=== PATIENT | male | born 1935 | race African-American/Black ===

== ENCOUNTER 2022-05-21 08:44 | Outpatient (REF) | payer MEDICARE, SELFPAY ==
--- NOTE | ~2022-05-21 | FL_ITS ---
EXAMINATION: FL BARIUM SWALLOW CLINICAL INFORMATION: Dysphagia, oropharyngeal phase COMPARISON: None TECHNIQUE: After effervescent granules, the patient swallowed thick barium by cup. The patient aspirated and the study was terminated early. Fluoroscopy time: 0.6 minutes DAP: 0.693 Gycm2 Images: 4 FINDINGS: The patient initiated swallowing normally. On the limited evaluation from a single swallow, no fixed esophageal mucosal abnormality is seen to suggest a stricture or mass. However, the patient aspirated, with contrast seen well below the level of the cords (images #3 and #4) so the study was terminated at that time. FL/FL barium swallow IMPRESSION: Limited study terminated due to aspiration. Recommend dedicated swallowing evaluation by speech and line which therapy. Limited evaluation of the esophagus is only a single AP swallow was visualized. However, there is no gross fixed mucosal abnormality to suggest a stricture or mass. As clinically indicated, consider upper endoscopy or a follow-up esophagram after swallowing evaluation.
[2022-05-21 09:37] LABS: Hematocrit 37.1 % (42.0-52.0); Hemoglobin 12.3 g/dl (14.0-18.0); Mean Corpuscular HGB Conc 33.2 g/dl (31.0-36.0); Mean Corpuscular Hemoglobin 33.2 pg (27.0-33.0); Mean Corpuscular Volume 100.3 fL (80.0-98.0); Mean Platelet Volume 11.1 fL (9.4-12.4); Platelet Count 134 X10*3/uL (160-400); Red Cell Distribution Width 13.8 % (11.0-16.0)
[2022-05-21 09:54] LABS: Alanine Aminotransferase 13 U/L (0-40); Albumin Level 3.9 g/dL (3.5-5.0); Alkaline Phosphatase 65 U/L (39-117); Anion Gap 12 (12-20); Aspartate Amino Transferase 22 U/L (5-37); Bilirubin Total 0.9 mg/dL (0.0-1.0); Blood Urea Nitrogen 14 mg/dL (9-16); Calcium 9.2 mg/dL (8.4-10.2); Carbon Dioxide 30 mmol/L (22-29); Chloride 105 mmol/L (96-108); Estimated Glomerular Filt Rate > 60; Glucose Fasting 88 mg/dL (60-99); Potassium 4.2 mmol/L (3.3-5.1); Sodium 143 mmol/L (135-145); Total Protein 6.2 g/dL (6.5-8.0)
[2022-05-21 10:16] LABS: Prostate Specific Antigen Scr 8.23 ng/mL (<0.05-4.0); TSH reflex Free T4 4.92 uIU/mL (0.32-4.0)
[2022-05-21 10:48] LABS: Free T4 (Free Thyroxine) 0.84 ng/dL (0.71-1.85)
== END 2022-05-21 08:45 | disposition home or self-care (01) ==
LOC: HO.XRAY 08:44
PROVIDERS: PCP Physician Assistant; Visit Provider Physician Assistant
DX: Z12.5 Encounter for screening for malignant neoplasm of prostate (principal); Z13.29 Encounter for screening for other suspected endocrine disorder; C61 Malignant neoplasm of prostate
CPT/HCPCS: 36415; 74220; 80053; 84153; 84439; 84443; 85027

== ENCOUNTER → 2022-07-02 10:54 | Outpatient (BNVA) | payer MEDICARE, SELFPAY | PROVIDERS: PCP Physician Assistant; Visit Provider Internal Medicine | DX: R13.12 Dysphagia, oropharyngeal phase (principal) | CPT/HCPCS: 99202 ==

== ENCOUNTER 2022-08-05 09:40 | Outpatient (REF) | payer OTHER, SELFPAY ==
--- NOTE | ~2022-08-05 | CT_ITS ---
EXAMINATION: CT CHEST WITH CONTRAST CLINICAL INFORMATION: Dysphagia. History of aspiration. COMPARISON: Barium swallow April 2022 TECHNIQUE: Multidetector volumetric CT imaging of the chest was obtained after the administration of 65 mL of Omnipaque 350 intravenous contrast without immediate adverse reactions. Axial MIP volume rendering provided. Sagittal and coronal reformatted images were obtained. This CT examination was performed using dose optimization techniques as appropriate, variously including the following: *Automated exposure control *Adjustment of mA and/or kV according to patient size (this includes techniques or standardized protocols for targeted exams where dose is matched to indication/reason for exam; i.e. extremities or head) *Use of iterative reconstruction technique DLP: 88 mGy-cm FINDINGS: LUNGS: There is a heterogeneous or semisolid density in the superior segment of the right lower lobe this is partially solid and partially groundglass attenuation. Denser more solid-appearing component measures 8 x 10 mm axial image 89 series 7. Including more peripheral groundglass component this measures 2.5 x 2 cm in AP and transverse dimension sagittal reconstructed image 68 and 3 cm in transverse dimension coronal reconstructed image 69. There is adjacent mild bronchial wall thickening for example axial image 84 series 7. There is a 3 mm right lower lobe nodule axial image 116 series 7 that may be endobronchial. There is 2 mm right middle lobe nodule axial image 1:15 series 7 there is a 2 mm right middle lobe nodule axial image 127 series 7. There is scarring or subsegmental atelectasis at the lung bases. MEDIASTINUM: The distal thoracic esophagus is slightly dilated and fluid-filled. The esophagus is otherwise normal. Normal heart size. No pericardial effusion. Normal caliber thoracic aorta. No enlarged hilar or mediastinal lymph nodes. PLEURA: There is no pleural effusion. No pleural mass or thickening. AXILLA: No lymphadenopathy. UPPER ABDOMEN: Unremarkable OSSEOUS STRUCTURES: 1 cm sclerotic lesion in the left T10 vertebral body. Question mild old L1 compression fracture versus Schmorl's node. Degenerative changes of the spine. CT/CT chest w IV con IMPRESSION: 2.5 x 2 x 3 cm heterogeneous partially solid partially groundglass attenuation lesion in the right lower lobe. Infectious, inflammatory and neoplastic processes should be considered. Short-term chest CT follow-up following antibiotic treatment in several weeks recommended. Slightly dilated fluid-filled distal thoracic esophagus. The esophagus is otherwise normal. 1 cm nonspecific sclerotic lesion in the T10 vertebral body. Fleischner guidelines were followed. Findings will be communicated by the [place] work flow cocoa bean roaster helper.
[2022-08-05] MEDS: iohexoL 350 MG/ML 100 ML INFUS..BTL IV (11:24)
[2022-08-06 07:59] LABS: Creatinine POC 0.5 mg/dL (0.5-1.4); GFR POC > 60
== END 2022-08-05 09:41 | disposition home or self-care (01) ==
LOC: HO.CT 09:40
PROVIDERS: Visit Provider Internal Medicine
DX: R13.10 Dysphagia, unspecified (principal)
CPT/HCPCS: 71260; 82565; Q9967

== ENCOUNTER 2022-08-21 14:00 | Outpatient (REF) | payer OTHER, SELFPAY ==
--- NOTE | ~2022-08-21 | FL_ITS ---
EXAMINATION: XR BARIUM SWALLOW CLINICAL INFORMATION: Dysphagia. COMPARISON: None. TECHNIQUE: Modified barium swallow was performed on lateral fluoroscopy with patient upright in the presence of the speech therapist. FINDINGS: Modified barium swallow was performed with thick barium, honey, nectar consistency barium, cookie coated with barium and barium puree. There is normal propagation bolus from the oral cavity through the pharynx into the esophagus with no laryngeal aspiration. Laryngeal penetration was visualized with honey consistency barium on at least 2 occasions. Mild retention of barium was seen in the valleculae due to anterior inversion of the epiglottis. FLUOROSCOPY TIME: 4.7 minutes. DOSE AREA PRODUCT: 2.440 uGy-m2 (microgray-meter squared). FL/FL barium swallow modified IMPRESSION: 1. Laryngeal penetration with honey consistency barium. No laryngeal aspiration seen. 2. Mild retention of barium in the valleculae due to anterior inversion of the epiglottis. Correlate with speech therapy report.
--- NOTE | 2022-08-22 13:30 | MHC.SL.IMP ---
Date of Plan of Treatment: 08/21/22 Onset of Symptoms/Illness: 08/21/18 Date Treatment Started: 08/21/22 Admitting Diagnosis: N/A Primary Speech & Language Diagnosis: R13.12 Oropharyngeal Phase Dysphagia Reason for Today's Visit: 60744 Modified Barium Swallow Study Pre-evaluation Dietary Consistencies: Regular Pre-evaluation Liquid Consistency: Thin Pre-evaluation Medication Administration: Whole with Liquid Medical History: [place] Modified Barium Swallow Study Fluoroscopic Evaluation of Swallowing Function CPT Code 64396 Evaluation Year: 2021 Reason for Study: Patient reports globus sensation. Referring Physician: Bailey Llanos MD Evaluating Clinician: Darline Connell MA, CCC-MOBILE MARKETING MANAGER Study Number: 1 Patient Name: John Guevara Age: 87 Gender: Male MEDICAL HISTORY: SURGICAL HX: History of esophagogastroduodenoscopy History of colonoscopy Current (pre-evaluation) Intake/Diet: Route: PO Diet Grade: Regular Liquid Consistencies: Thin Pre-Study Functional Oral Intake Scale (FOIS): 7- Total oral intake with no restrictions Pain: None reported at time of study SUBJECTIVE: Pt is an 87 year old male referred for a modified barium swallow study by Bailey Llanos MD [place] [facility] [place] Pt attended this exam accompanied by his daughter and , who had waited in the waiting area. Pt reported onset of dysphagia 4 years ago. Pt reported that he has difficulty swallowing hard foods only. Pt reported ?feeling like something is stuck? and having to take sips of liquid between each bite. When seen by the G.I. specialist, pt reported he had difficulty with foods such as rice, bread, and meat, and that he cuts his food into small pieces and chews thoroughly. Pt denied pain when swallowing. Pt denied having any difficulty drinking liquids. [place] [facility] [place] Findings of Barium Swallow X-Ray are as follows: ?FINDINGS: The patient initiated swallowing normally. On the limited evaluation from a single swallow, no fixed esophageal mucosal abnormality is seen to suggest a stricture or mass. However, the patient aspirated, with contrast seen well below the level of the cords (images #3 and #4) so the study was terminated at that time. FL/FL barium swallow IMPRESSION: Limited study terminated due to aspiration. Recommend dedicated swallowing evaluation by speech and line which therapy. Limited evaluation of the esophagus is only a single AP swallow was visualized. However, there is no gross fixed mucosal abnormality to suggest a stricture or mass. As clinically indicated, consider upper endoscopy or a follow-up esophagram after swallowing evaluation.? Oral Motor Exam Facial Symmetry: Symmetrical Mouth Occlusion: Normal Oral-Facial Teeth Characteristics: Partially Missing Oral-Facial Lip Pucker Description: Normal Oral-Facial Smile (Lips) Description: Normal Oral-Facial Puff Cheeks Description: Normal Tongue Size: Normal Tongue Excursion Description: Normal Tongue Range of Movement Description: Normal Tongue Speed of Movement Description: Normal Tongue Strength of Movement (against opposing pressure): Reduced Tongue Movement Characteristics: Normal/Absent Is patient able to manage secretions?: Yes Is patient able to produce volitional cough?: Yes Food and Liquid Trials: Oral Impairment: Lip Closure: 0=No labial escape Oral Impairment: Tongue Control During Bolus Hold: 1=Escape to lateral buccal cavity/floor of mouth (FOM) Oral Impairment: Bolus Preparation/Mastication: 1=Slow prolonged chewing/mashing with complete re-collection Oral Impairment: Bolus Transport/Lingual Motion: 2=Slowed tongue motion Oral Impairment: Oral Residue: 2=Residue collection on oral structures Oral Impairment:Initiation of Pharyngeal Swallow: 1=Bolus head in valleculae Pharyngeal Impairment: Soft Palate Elevation: 0=No bolus between soft palate (SP)/pharyngeal wall (PW) Pharyngeal Impairment: Laryngeal Elevation: 1=Partial thyroid cartilage/arytenoids to epiglottic petiole movement Pharyngeal Impairment: Anterior Hyoid Excursion: 1=Partial anterior movement Pharyngeal Impairment: Epiglottic Movement: 2=No inversion Pharyngeal Impairment: Laryngeal Vestibular Closure:: 1=Incomplete: narrow column air/contrast in laryngeal vestibule Pharyngeal Impairment: Pharyngeal Stripping Wave: 0=Present: complete Pharyngeal Impairment: Pharyngeal Contraction: Did not test Pharyngeal Impairment: Pharyngoesophageal Segment Openin=Partial distention/partial duration: partial obstruction of flow Pharyngeal Impairment: Tongue Base (TB) Retraction: 2=Narrow column of contrast/air between TB and posterior PW Pharyngeal Impairment: Pharyngeal Residue: 2=Collection of residue within or on pharyngeal structures Pharyngeal Impairment: Esophageal Clearance Upright Position: Did not test Impressions and Recommendations OBJECTIVE: Time-out: performed at 02:45 Evaluation Start: 02:30; Stop: 02:35 Patient Positioning: Standing Viewing Planes: LATERAL ONLY Contrast: MBSImP? Standardized Protocol using commercially prepared, standardized Barium viscosities, including: Varibar? THIN LIQUID (40% w/v, <15 cps) , Varibar? NECTAR (40% w/v, <150-450 cps) , Varibar? THIN HONEY (40% w/v, <800-1800 cps) , 1/2 Shortbread Cookie (1 x1 x.25 ) MBSImP ID: [id number] MBSImP Results: Lip closure for intraoral bolus containment resulted in no labial escape. Tongue control during bolus hold allowed bolus escape to the lateral buccal cavity/floor of mouth. Bolus preparation and mastication resulted in slow, prolonged chewing/mashing but with complete re-collection. Bolus transport/lingual motion was with slowed tongue motion. Oral residue was a collection on oral structures. Initiation of the pharyngeal swallow occurred when the bolus head was in the valleculae. Soft palate elevation resulted in no bolus between the soft palate and the pharyngeal wall. Laryngeal elevation was decreased, with partial superior movement of the thyroid cartilage/partial approximation of the arytenoids to the epiglottic petiole. Anterior hyoid excursion demonstrated partial anterior movement. Epiglottic movement resulted in no inversion. Laryngeal vestibular closure was incomplete, with a narrow column of air/contrast noted within the laryngeal vestibule at the height of the swallow. Pharyngeal stripping wave was present and complete. Pharyngeal contraction could not be determined due to logistical reasons not related to physiologic impairment. Pharyngoesophageal segment opening demonstrated partial distension/partial duration, with partial obstruction of bolus flow. Tongue base retraction allowed a narrow column of contrast or air between the retracted tongue base and the posterior pharyngeal wall. Pharyngeal residue was a collection of residue within or on pharyngeal structures. Esophageal clearance in the upright position could not be assessed due to logistical reasons not related to physiologic impairment. Oral Impairment Score: 7 Pharyngeal Impairment Score: 10 (absence of score, component 13) Esophageal Impairment Score: --- (absence of score, component 17) Laryngeal Penetration and Aspiration: Penetration was observed in today's study. Thin Contrast entered the airway, remained above the vocal folds, and was ejected from the airway. ASSESSMENT: Clinician Assessment: This exam was conducted by a multidisciplinary team, which included a speech pathologist, radiologist, and radiology director. Pt was standing for lateral view only. Pt was able to feed himself without any difficulty. Pt trialed the following solid and liquid consistencies: pureed solid (mixture applesauce with barium paste), ground solid (mixture chicken salad with barium paste), regular solid (Eileen Doone cookie coated with barium paste), honey thick liquid barium by cup, nectar thick liquid barium by cup, and thin liquid barium by cup. Pt displayed adequate lip closure with no labial escape. There was escape of bolus to the floor of mouth, but no premature posterior escape. Mastication was mildly slowed, characterized by piece meal deglutition pattern. Pt chewed bolus, swallowed partial bolus, chewed remaining bolus, and swallowed again to clear the oral cavity. There was mild lingual residue, which pt cleared with a dry swallow. Posterior lingual movement for the transport of bolus was mildly slowed. Pharyngeal swallow trigger initiated as bolus head reached the valleculae. There was no nasopharyngeal reflux. Laryngeal elevation was incomplete with partial anterior hyoid excursion. Epiglottis at times inverted partially, while other times there was no inversion at all. There was incomplete laryngeal vestibular closure, with resultant penetration of thin liquid. There was mild to moderate pharyngeal residue in the valleculae and pyriform sinuses and on the posterior pharyngeal wall. Pt was able to clear pharyngeal residue with multiple dry swallows. The chin tuck did not have a significant effect in reducing pharyngeal residue. There were episodes of penetration of very trace amount of contrast with intake of thin liquid, which cleared from airway with subsequent dry swallow. No evidence of aspiration during this exam. Liquid Intake Recommendation: Thin Liquid Intake Strategies: Small Sips, No Straws, Double Swallow Dietary Recommendations: Chopped/Advanced (NDD3) Medication Administration: Whole with Puree Please contact the pharmacy regarding appropriate crushable or liquid drug formulations that are available whenever modified delivery is recommended. Compensatory Strategies Recommended: Sitting Upright (90 deg), Double Swallow, No Straw, Liquids from Cup, Liquids from Spoon, Small Bites and Sips, Rate of Ingestion Change, Avoid Specific Foods Supervision during eating and or drinking: Total Supervision (1:1) Recommended Treatments: Compens. Strategy Educat. Recommendation for Speech Therapy: Outpatient Speech Therapy PLAN: Intake Recommendations: Route: PO Diet Grade: CHOPPED/ADVANCED (NDD3) Liquid Consistencies: Thin Post-Study Functional Oral Intake Scale (FOIS): 5- Total oral intake of multiple consistencies requiring special preparation This exam revealed mild oropharyngeal phase dysphagia, characterized by mildly prolonged oral phase, incomplete laryngeal elevation, partial to no epiglottic inversion and incomplete laryngeal vestibular closure with resultant penetration of liquids. No evidence of aspiration during this exam, however, presence of penetration puts pt at risk of aspiration. There was mild to moderate pharyngeal retention which cleared with subsequent dry swallows. Recommend modified diet CHOPPED/ADVANCED (NDD3) solids with THIN liquids and ASPIRATION PRECAUTIONS: -Take small bites of food -Moisten food with sauces and gravies, ensuring sauces are mixed and blended in well with food -Chew food well -Avoid hard to chew solids, sticky textures, and mixed consistencies -Follow each bite with 2-3 additional dry swallow to promote pharyngeal clearance -Take small, individual sips of liquid by teaspoon or by cup -Avoid taking consecutive sips -Avoid the use of straws -Follow each sip with 1-2 dry swallows -Maintain upright 90 degree position while eating and drinking and for at least 45 minutes afterwards -Ensure a rigorous daily oral care routine before first meal and after each subsequent meal Recommend 1-3 speech therapy visits to provide further education RE: MBSS results, risks of aspiration, dietary textures, and recommended strategies. Recommend pt to continue monitoring his dysphagia. If there are any changes or worsening of symptoms, consult with PCP, at which point a re-evaluation may be indicated. Therapy Recommendations: Therapy will be continued Prognosis for Improvement: The prognosis for the patient to meet nutritional needs by mouth is good based on degree of impairment. Billposter Goals: ? The patient will tolerate the least restrictive diet with a safe/efficient swallow to maintain adequate nutrition and hydration. ? The patient and/or family will participate in further education for swallowing goals. Short Term Goals: ? Diet ? Guidelines - The patient will comply with/recall the following guidelines/strategies 100% of the time with no cuing: Bolus Volume Change, Rate of Ingestion Change, Additional Swallow(s) per Bolus, No Straws. ? Education - The patient, family will verbalize/demonstrate understanding of the results of this evaluation, the above recommendations, and the swallowing guidelines. Frequency/Duration: 1x weekly x 3 weeks Date Range for Service Requested: Timeline to reassess: Clinician - Supplemental, Miscellaneous Communication: It is important to note MBSS objective studies are snapshots in time and Patient function might vary with factors such as time of day or concomitant medical conditions. For this reason, the final treatment plan for this patient should rest with their medical care team. Additional recommendations should be considered with the totality of the Patient in mind. Thank for the opportunity to participate in the care of this patient. If you have any questions about the content of this report, please contact the [facility]. Education: Education regarding findings from today's study and plans for therapy were provided to Patient only through Verbal Instruction. Understanding was expressed by the Patient only. Classifying Machine Operator Clinician/Clinical Fellow: No Supervisory Statement: N/A Speech Language Pathologist: Darline Connell M.A., CCC-MOBILE MARKETING MANAGER
== END 2022-08-21 14:01 | disposition home or self-care (01) ==
LOC: HO.XRAY 14:00
PROVIDERS: Visit Provider Internal Medicine
DX: R13.12 Dysphagia, oropharyngeal phase (principal)
CPT/HCPCS: 74230; 92611

== ENCOUNTER → 2022-08-23 10:45 | Outpatient (BNVA) | payer OTHER, SELFPAY | PROVIDERS: PCP Physician Assistant; Visit Provider Surgery | DX: R91.1 Solitary pulmonary nodule (principal); R13.12 Dysphagia, oropharyngeal phase | CPT/HCPCS: 99202 ==

== ENCOUNTER 2022-09-05 09:16 | Day surgery (SDC) | payer OTHER, SELFPAY ==
[2022-08-30 12:18] VITALS: BMI 23.5
--- NOTE | 2022-09-04 10:31 | P.CONAN_ITS ---
Documented by User: Shira Rosario NP 09/04/22 10:37 HPI - Anesthesia Eval Consult details Narrative: 87yo M for Upper Endoscopy PMFSH Active Problems Active Problems: All Active Problems (Updated 08/23/22 @ 12:22 by Isabel Macedo PA-C) Pulmonary nodule 1 cm or greater in diameter (Acute) Prostate CA (Acute) Oropharyngeal dysphagia (Acute) Dysphagia (Acute) Knee osteoarthritis (Acute) Osteoarthritis (Acute) Neuropathy (Acute) Past Medical History Medical History GERD (gastroesophageal reflux disease) Prostate CA Family History Family History Brother Cancer Brother Cancer Brother Cancer Sister Cancer Sister Cancer Sister Cancer Surgical History Surgical History History of colonoscopy History of esophagogastroduodenoscopy (EGD) Social History Social History Housing: House Are you a primary career services officer to a significant other at home: No Do you presently have visiting nurse or other home services: No Patient Tobacco Use Status: Never used Tobacco e-Cigarette/Vaping Use: Never Used Use of substances other than those prescribed or required for medical reasons: No Are you DNR?: No Advance Directives: No Advance Directives Information Provided: Yes Advance Directives on File: No Recently lost weight without trying: No Nutrition Risks: Surgical patient >75years Poor oral hygiene: No service: No Current occupational status: retired Cognitive needs: Yes Hearing needs: No Meds Allergies Allergy/AdvReac Type Severity Reaction Status Date / Time aspirin Allergy Intermediate itchy body Verified 09/05/22 09:34 Home Medications Medication Instructions Recorded Confirmed Last Taken Type acetaminophen 500 mg tablet 500 mg PO Q6H PRN Pain 05/13/22 09/05/22 Unknown History (Tylenol Extra Strength) lidocaine 4 % topical patch 1 patch topical DAILY PRN Back Pain 09/05/22 09/05/22 Unknown History (Lidocaine Pain Relief) multivitamin 1 tab PO DAILY 09/05/22 09/05/22 Unknown History Exam Exam Date and Time: September 04, 2022 1031 Height,Weight and Vital Signs: Height 5 ft 2.6 in Weight 59.421 kg Pertinent Lab Results Pertinent Lab Results: Laboratory Tests 05/21/22 05/21/22 08:59 08:59 WBC 5.0 Hgb 12.3 L Hct 37.1 L Plt Count 134 L Sodium 143 Potassium 4.2 Chloride 105 Carbon Dioxide 30 H BUN 14 Creatinine 0.84 Assessment and Plan Assessment Anesthesia Assessment: Chart Reviewed Documented by User: Odette Andersen MD 09/05/22 10:23 [facility] Past Medical History Medical History GERD (gastroesophageal reflux disease) Prostate CA Functional capacity: independent ambulation Family History Family History Brother Cancer Brother Cancer Brother Cancer Sister Cancer Sister Cancer Sister Cancer Family history of problems with anesthesia: No Surgical History Surgical History History of colonoscopy History of esophagogastroduodenoscopy (EGD) History of Problems with Anesthesia: No Social History Social History Housing: House Are you a primary career services officer to a significant other at home: No Do you presently have visiting nurse or other home services: No Patient Tobacco Use Status: Never used Tobacco e-Cigarette/Vaping Use: Never Used Use of substances other than those prescribed or required for medical reasons: No Are you DNR?: No Advance Directives: No Advance Directives Information Provided: Yes Advance Directives on File: No Recently lost weight without trying: No Nutrition Risks: Surgical patient >75years Poor oral hygiene: No service: No Current occupational status: retired Cognitive needs: Yes Hearing needs: No Meds Allergies Allergy/AdvReac Type Severity Reaction Status Date / Time aspirin Allergy Intermediate itchy body Verified 09/05/22 09:34 Home Medications Medication Instructions Recorded Confirmed Last Taken Type acetaminophen 500 mg tablet 500 mg PO Q6H PRN Pain 05/13/22 09/05/22 Unknown History (Tylenol Extra Strength) lidocaine 4 % topical patch 1 patch topical DAILY PRN Back Pain 09/05/22 09/05/22 Unknown History (Lidocaine Pain Relief) multivitamin 1 tab PO DAILY 09/05/22 09/05/22 Unknown History Exam Airway Mallampati Class: II TM Dist: >3cm Heart: RRR Lungs: CTA Assessment and Plan Final Anesthetic Review Family History of Problems with Anesthesia: No History of Problems with Anesthesia: No NPO: Yes ASA Class: II Final Preanesthetic Review: No Changes in Pt Med Stat and Consent Obtained/Reviewed Patient Risk: Low Procedure Risk: Low Anesthetic Plan Anesthetic Plan: MAC: Disposition: Standard PACU
[2022-09-05 09:21] VITALS: BP 135/58; PULSE 63; RESP 18; TEMP 36.1; O2SAT 99
[2022-09-05] MEDS: Lactated Ringers 1,000 ML 100 ML IVCONT (09:58)
--- NOTE | 2022-09-05 10:03 | MHC.SHP ---
Pre-Procedural Eval Section A Date of Service: 09/05/22 Section B Chief Complaint: Dysphagia, oropharyngeal phase Details of Present Illness: 87 y.o M with hx of dysphagia mostly to solids here for EGD with possible dilation. No unintentional weight loss. Seen with the help of readers' advisory service librarian. Relevant Family History (Specify if Yes): No Relevant Social History: None Present Medications: see Short Stay Collaborative assessment Medical History: Significant History (Hx of prostate ca, osteoarthritis, neuropathy ) Allergies: Allergies Allergy/AdvReac Type Severity Reaction Status Date / Time aspirin Allergy Intermediate itchy body Verified 09/05/22 09:34 Review of Systems Review of Systems Comment: 10 point ROS negative except as above Exam Exam Comment: Gen appear: No acute distress HEENT: no icterus Chest: No overt resp distress Abd: soft, nontender, nondistended Psych: Stable affect, answering questions appropriately Neuro: A/Ox3 noted to move all extremities spontaneously Ext: no peripheral edema Plan Diagnosis/Plan: Unchanged I have reviewed the history and physical and performed a pertinent physical examination on my patient. No changes have occurred unless specified. Time Spent With Patient Time: Total time managing care of this patient today ____ minutes.
--- NOTE | 2022-09-05 11:15 | P.OP_ITS ---
Operative Note Operative Note Date of Service: 09/05/22 Narrative: Procedure: Esophagogastroduodenoscopy Endoscopist: Bailey Llanos MD Indication: Dysphagia Anesthesia Provider: Iman Grijalva CRNA Anesthesia Type: MAC Instrument: Olympus [id number] ?? EGD Procedure:?? The procedure, indications, preparation and potential complications were reviewed with the patient, who indicated understanding and gave written informed consent to proceed. A physical exam was performed. The endoscope was introduced through the mouth, and advanced to the second part of duodenum. The mucosa was carefully examined on slow withdrawal of the endoscope. The patient tolerated the procedure well. There were no immediate complications.? ? EGD Findings:? * Esophagus:? Normal mucosa noted in the entire esophagus. The Z line was at 34 cm. There was a Schatzki's ring at GE junction. A small hiatal hernia with diaphragmatic pinch noted at 36 cm. * Stomach:? Normal mucosa was noted in the stomach. * Duodenum:? Normal mucosa was noted in the whole of the examined duodenum. Additional intervention: A fixed-wire esophageal balloon was inserted through the scope and incrementally insufflated from 18 mm to 20 mm. A small tear with heme was noted in the Schatzki's ring at 9 o clock position indicating successful dilation. ? EGD Impressions:? * Schatzki's ring (dilation) * Hiatal hernia * Normal stomach * Normal duodenum ?? Recommendations:?? * Liquid diet for the next 4-6 hours and then advance to regular diet. * Avoid NSAIDs. * If the dysphagia improves and then returns, can consider repeat dilation. Above has been reviewed with the patient. Relevant educational hand outs were provided at discharge.
[2022-09-05 11:22] VITALS: BP 102/55; PULSE 69; RESP 16; TEMP 36.6; O2SAT 100
[2022-09-05 11:37] VITALS: BP 130/73; PULSE 62; RESP 14; O2SAT 97
[2022-09-05 11:49] VITALS: BP 121/66; PULSE 56; RESP 14; TEMP 36.4; O2SAT 97
[2022-09-05 11:54] VITALS: PULSE 56
--- NOTE | 2022-09-05 13:32 | HO.POSTANES ---
Post Anesthesia Evaluation Post Anesthesia Evaluation Vital Signs: Vital Signs Temp Pulse Resp BP Pulse Ox O2 Del Method O2 Flow Rate 09/05/22 11:54 56 09/05/22 11:49 97.6 F 56 14 121/66 97 Room Air 09/05/22 11:37 62 14 130/73 97 Nasal Cannula 09/05/22 11:22 98 F 69 16 102/55 L 100 Non-Rebreather Mask 6 09/05/22 09:21 96.9 F 63 18 135/58 L 99 Room Air Anesthesia: Monitored Mental Status: Awake Pain Control: Satisfactory Nausea/Vomiting: None Hydration: Adequate Anesthesia-Related Issues: No Anes. Related Issues
== END 2022-09-05 12:29 | disposition home or self-care (01) ==
PROVIDERS: PCP Physician Assistant; Visit Provider Internal Medicine
PROC: 0DJ08ZZ Inspection of Upper Intestinal Tract, Via Natural or Artificial Opening Endoscopic (ICD-10-PCS; CPT 43235; principal; 2022-09-05 10:50)
DX: R13.12 Dysphagia, oropharyngeal phase (principal); K22.2 Esophageal obstruction; K44.9 Diaphragmatic hernia without obstruction or gangrene; K21.9 Gastro-esophageal reflux disease without esophagitis; Z79.899 Other long term (current) drug therapy; Z88.8 Allergy status to other drugs, medicaments and biological substances; Z85.46 Personal history of malignant neoplasm of prostate
CPT/HCPCS: 43249; C1726

== ENCOUNTER → 2022-09-18 11:19 | Outpatient (BNVA) | payer OTHER, SELFPAY | PROVIDERS: PCP Physician Assistant; Visit Provider Internal Medicine | DX: R13.12 Dysphagia, oropharyngeal phase (principal); K22.2 Esophageal obstruction; Z79.899 Other long term (current) drug therapy | CPT/HCPCS: 99212 ==

== ENCOUNTER → 2022-09-27 09:36 | Outpatient (BNVA) | payer OTHER, SELFPAY | PROVIDERS: PCP Physician Assistant; Visit Provider Surgery | DX: K22.2 Esophageal obstruction (principal); R13.12 Dysphagia, oropharyngeal phase; R91.1 Solitary pulmonary nodule | CPT/HCPCS: 99212 ==

== ENCOUNTER 2022-10-08 10:36 | Outpatient (RCR) | payer OTHER, SELFPAY | END 2022-10-14 13:04 | disposition home or self-care (01) | LOC: HO.SH 10:36 | PROVIDERS: Visit Provider Internal Medicine | DX: R13.12 Dysphagia, oropharyngeal phase (principal) | CPT/HCPCS: 92526 ==

== ENCOUNTER 2022-12-06 09:29 | Outpatient (REF) | payer OTHER, SELFPAY ==
--- NOTE | ~2022-12-06 | CT_ITS ---
EXAMINATION: CT CHEST WITHOUT CONTRAST CLINICAL INFORMATION: Follow-up right upper lobe lesion. COMPARISON: CT chest dated 08/05/2022. TECHNIQUE: Multidetector volumetric CT imaging of the chest was done. Axial MIP volume rendering provided. Sagittal and coronal reformatted images were obtained. This CT examination was performed using dose optimization techniques as appropriate, variously including the following: *Automated exposure control *Adjustment of mA and/or kV according to patient size (this includes techniques or standardized protocols for targeted exams where dose is matched to indication/reason for exam; i.e. extremities or head) *Use of iterative reconstruction technique DLP: 143 mGy-cm FINDINGS: BOAT CAPTAIN: The lungs are symmetrically well-expanded and grossly clear. LUNGS: Within the posterior basal segment of the right lower lobe (5:256-72), there are now 2 adjacent ill-defined serpiginous densities. There is adjacent mild small airway thickening, with tiny endobronchial densities (5:263). Overall, these appear improved from prior, with incomplete clearance. There is a small focus of scar/subsegmental atelectasis seen within the posterior segment of the right upper lobe (5:205). At the posterior bases, there are scattered foci of chronic linear scar/subsegmental atelectasis. The show no associated focal airway obstruction. No new mass, nodule, infiltrate or groundglass opacity is seen. There is mild biapical pleural and parenchymal scarring. The central airways appear patent. MEDIASTINUM: The mediastinum is normal. CORONARY ARTERY CALCIFICATION: None visualized on this study. PLEURA: There is no pleural effusion. No pleural mass or thickening. AXILLA: No lymphadenopathy. UPPER ABDOMEN: There is a small hiatus hernia. The adrenal glands are unremarkable. OSSEOUS STRUCTURES: There is multi-level lower thoracic and upper lumbar degenerative disc disease, spondylosis and Schmorl's node formation. There are stable mild T11-L1 anterior wedge compression fractures. A stable 1.3 cm sclerotic lesion is redemonstrated within the T10 vertebral body, possibly a hemangioma (7:50). CT/CT chest wo IV con IMPRESSION: There is interim improvement without focal resolution of foci of probable scar/subsegmental atelectasis within the right lower lobe. There is associated, focal small airway thickening, with endobronchial densities. This is likely infectious or inflammatory in etiology. Recommend clinical correlation and continued follow-up CT in 1-3 months to ensure clearance, if clinically warranted. No sizable lymphadenopathy or effusion is seen. There is no aggressive osseous lesion. Fleischner guidelines were followed.
== END 2022-12-06 09:30 | disposition home or self-care (01) ==
LOC: HO.CT 09:29
PROVIDERS: PCP Physician Assistant; Visit Provider Surgery
DX: R91.1 Solitary pulmonary nodule (principal)
CPT/HCPCS: 71250

== ENCOUNTER → 2022-12-20 08:48 | Outpatient (BNVA) | payer OTHER, SELFPAY | PROVIDERS: PCP Physician Assistant; Visit Provider Surgery | DX: R91.1 Solitary pulmonary nodule (principal); R13.12 Dysphagia, oropharyngeal phase | CPT/HCPCS: 99212 ==

== ENCOUNTER 2023-07-10 10:15 | Outpatient (AMB) | payer OTHER, SELFPAY ==
[2023-07-10 10:49] VITALS: BP 130/62; PULSE 82; RESP 16; O2SAT 99; BMI 24.8
--- NOTE | 2023-07-10 10:49 | MHC.PC.OV ---
Vital Signs 07/10/23 10:49 Height 5 ft 2 in Weight 135 lb 8 oz BMI 24.8 BP 130/62 Blood Pressure Location Lt brachial Position Sitting Respiration 16 Pulse 82 Pulse Source Pulse Oximeter Pulse Oximetry (%) 99 Oxygen Delivery Method Room Air Intake Visit Reasons: f/u Prostate cancer / dysphagia Intake Note: Patient is here today for a physical. Pricer Bagger Required: No Accompanied by: Daughter Allergies aspirin Allergy (Intermediate, Verified 07/10/23 11:11) itchy body Medication List - Last Reconciled 07/10/23 by Flavio Cortes PA-C acetaminophen (Tylenol Extra Strength) 500 mg PO Q6H PRN lidocaine 4% (Lidocaine Pain Relief) 1 patch topical DAILY PRN multivitamin 1 tab PO DAILY omeprazole 20 mg PO DAILY 90 days Tobacco use date assessed: 01/08/23 Fall risk assessment: No Falls in past year Last assessed Fall Risk: 07/10/23 Dental Screening Dental Screen Date: 07/10/23 Did you have a dental visit in the last 12 months?: No Did you have a dental problem in the last 6 months where you did not have access to dental care?: No Was dental information given to patient?: Yes HPI f/u Prostate cancer / dysphagia HPI Details Patient is an 88-year-old male Hungarian-speaking ..? Patient currently living with his daughter in the [facility] area.? Patient has a past medical history significant for prostate cancer, polyarthritis. Concerns--> reports having some chronic back pain. Does use lidocaine patches at times which are helpful. Not interested in doing any physical therapy or getting x-rays at this time. Pulmonary nodule: Has been followed by thoracic surgeon for pulmonary nodule with recurrent CTs. Most recent CT showing improving ground-glass opacities. . Prostate cancer: He has followed up with Urology and reports getting a biopsy. He denies any urinary symptoms Most recent PSA at 8.23 Vaccine: UTD with flu vaccine, Has gotten COVID. Need PCV-20 PFSH Medical History GERD (gastroesophageal reflux disease) Prostate CA Surgical History History of colonoscopy History of esophagogastroduodenoscopy (EGD) Family History Brother Cancer Brother Cancer Brother Cancer Sister Cancer Sister Cancer Sister Cancer Social History Housing: House Are you a primary care process manager to a significant other at home: No Do you presently have visiting nurse or other home services: No Alcohol intake: never Patient Tobacco Use Status: Never used Tobacco e-Cigarette/Vaping Use: Never Used Second Hand Smoke Exposure: No service: No Current occupational status: retired Cognitive needs: Yes (cane) Hearing needs: No Vision needs: No Questionnaire Thrive Questionnaire Date Thrive assessed: 01/08/23 RENÉE-7 AMB Questionnaire RENÉE-7 Date RENÉE - 7 assessed: 01/08/23 Source: Developed by Drs. Mayank Clemente, Octavia Moreno, Mathieu Hinojosa and colleagues, with an educational viry from [employer]. Review of Systems Const Denies body aches, Denies chills, Denies excessive sweating, Denies fatigue, Denies fever(s) and Denies headache(s) Eyes Denies blurry vision ENT Denies dysphagia, Denies vertigo, Denies dizziness, Denies headache(s), Denies hearing loss and Denies tinnitus Card Denies chest pain, Denies chest pain with activity, Denies syncope, Denies irregular heart rhythm and Denies dyspnea Resp Denies chest congestion, Denies cough, Denies hemoptysis, Denies dyspnea and Denies wheezing GI Denies abdominal pain, Denies melena, Denies hematochezia, Denies coffee ground emesis, Denies dysphagia, Denies diarrhea, Denies nausea and Denies vomiting Denies difficulty urinating, Denies dysuria, Denies urinary frequency, Denies urinary hesitancy and Denies urinary urgency Musc Denies arthralgias, Denies limited range of motion, Denies muscle cramps and Denies muscle weakness Skin/Breast Denies rash and Denies skin ulcer Neuro Denies Abnormal speech present, Denies confusion, Denies vertigo, Denies dizziness, Denies syncope, Denies headache(s), Denies memory loss and Denies seizure-like activity Psych Denies anxiety, Denies confusion, Denies depression, Denies memory loss, Denies panic attacks and Denies paranoia Endo Denies excessive sweating, Denies fatigue, Denies flushing, Denies polydipsia and Denies polyuria Aller/Immun Denies wheezing Physical exam (Primary Care) Vital Signs: Last Vital Signs Pulse 82 07/10/23 10:49 Resp 16 07/10/23 10:49 BP 130/62 07/10/23 10:49 Pulse Ox 99 07/10/23 10:49 Oxygen Delivery Method Room Air 07/10/23 10:49 BMI result Body Mass Index 24.8 Tobacco/Smoking Status: Tobacco use Status Tobacco use date assessed 01/08/23 07/10/23 10:52 Patient Tobacco Use Status Never used Tobacco 07/10/23 10:52 e-Cigarette/Vaping Use Never Used 07/10/23 10:52 Thrive Assessment: Date of Thrive Assessment Date Thrive assessed 01/08/23 07/10/23 10:52 Const General: cooperative, comfortable, no acute distress, alert and awake; No confusion Orientation/consciousness: oriented to person, oriented to place, patient oriented x3 and No confusion HENMT Head: Yes normocephalic Ears: external ears normal and TM's normal bilaterally Face and sinus: No sinus tenderness Mouth: Normal oral and palatal mucosa present and tongue normal Teeth and gingiva: dentition normal and gingiva normal Throat: Yes posterior oropharynx normal, Yes tonsils normal and Yes uvula midline Eyes Conjunctivae: conjunctivae normal Sclerae: sclerae normal Pupils: Equal, round and reactive pupils present EOM: EOMs intact bilaterally Direct Ophthalmoscopy: No no photophobia Neck Neck: Yes no lymphadenopathy, No tender and Yes no JVD Thyroid: Thyroid normal Carotids: no bruits Chest Chest palpation & inspection: no tenderness Resp Effort & Inspection: normal respiratory effort, no audible wheezes, not labored and no stridor Auscultation: no crackles, no rales, no rhonchi and no wheezes Cardio Jugular venous distension: no JVD Rate: regular rate, not bradycardic and not tachycardic Rhythm: regular rhythm Bruits: no carotid bruits Peripheral pulses: Peripheral pulses 2+ throughout GI Inspection: Yes normal to inspection, No abdominal wall ecchymosis and No visible herniation Palpation (GI): Soft to palpation, nontender, no guarding, not rigid and No hepatosplenomegaly present Auscultation: normoactive bowel sounds General: Yes no CVA tenderness Back/Spine/Pelvis Back: no CVA tenderness and No back tenderness Cervical Spine: cervical ROM normal Thoracic/Lumbar Spine: thoracic and lumbar spine normal to inspection, straight leg raise negative bilaterally, No thoraco-lumbar ROM limited and No lumbar spinal tenderness Skin Lesions: no lesions Rashes: no rashes Wounds: no wounds Neuro General: oriented to person, oriented to place, patient oriented x3, CN's II-XI intact bilaterally and No confusion Cranial nerves: Yes Equal, round and reactive pupils present and Yes Normal accommodation reflex present Cognition (Neuro): normal cognition Speech: No Abnormal speech present Gait exam (Neuro): Normal gait present Motor exam (neuro): 5/5 motor strength present throughout Extrem Right upper extremity: full ROM; no cyanosis Left upper extremity: full ROM; no cyanosis Right lower extremity: no edema Left lower extremity: no edema Psych Appearance: grossly normal Mental Status: mental status grossly normal Affect: normal affect Attitude: cooperative Thought process: Normal thought process present Office Procedures Flu Questionnaire Does the patient have a severe egg allergy?: No Does the patient have severe life threatening allergies?: No Does the patient have a fever or illness today?: No Has the patient ever had Guillain-[place] Syndrome?: No Has the patient ever had any past reaction to a flu shot?: No Immunizations flu vacc [id number] 6mos up(PF) 60 mcg(15 mcgx4)/0.5 mL IM syringe Performing Provider: Flavio Cortes PA-C [facility] Administered by: CEASAR Reis on 07/10/23 11:00 Dose Route Admin Location Dispensed Lot Number Expiration Date NDC Heel Sprayer First 0.5 mL IM Left Deltoid 0.5 mL [id number] 03/21/24 [id number] [employer] VIS Given Date VIS Provided VIS Publication Date 07/10/23 Single Vaccine 21 Eligibility Eligibility Date Funding Source Not [facility] Eligible 07/10/23 Private Assessment and Plan Assessment & Plan (1) Annual physical exam: Code(s): Z00.00 - Encounter for general adult medical examination without abnormal findings (2) Prostate CA: Code(s): C61 - Malignant neoplasm of prostate Plan: Has yet to get follow-up with Urology her Oncology. He has follow-up with [facility] and reports getting a biopsy. No treatment has been given. (3) Screening for diabetes mellitus (DM): Code(s): Z13.1 - Encounter for screening for diabetes mellitus (4) Pulmonary nodule 1 cm or greater in diameter: Code(s): R91.1 - Solitary pulmonary nodule Plan: Patient followed by thoracic surgeon for his pulmonary nodule is q.[address] chest[address] Orders: Orders Influenza [id number] Immunization Today Z23 - Encounter for immunization Medications: Changed From lidocaine 4% (Lidocaine Pain Relief) 1 patch topical DAILY PRN Back Pain M54.50 - Low back pain, unspecified To lidocaine 4% (Lidocaine Pain Relief) 1 patch topical DAILY 30 days 30 ea 0RF Back Pain M54.50 - Low back pain, unspecified Coding Level of Care Code Est Pt Prev Care >65y(59440) Diagnoses Annual physical exam Z00.00 Prostate CA C61 Screening for diabetes mellitus (DM) Z13.1 Pulmonary nodule 1 cm or greater in diameter R91.1
== END 2023-07-10 11:33 | disposition home or self-care (01) ==
PROVIDERS: Visit Provider Physician Assistant
DX: Z00.00 Encounter for general adult medical examination without abnormal findings (principal); C61 Malignant neoplasm of prostate; Z13.1 Encounter for screening for diabetes mellitus; R91.1 Solitary pulmonary nodule; Z23 Encounter for immunization
CPT/HCPCS: 90471; 90686; 99397

== ENCOUNTER 2024-07-12 10:22 | Outpatient (AMB) | payer OTHER, MEDICARE, MEDICAID, SELFPAY ==
[2024-07-12 10:27] VITALS: BP 110/62; PULSE 82; O2SAT 97; BMI 23.0
--- NOTE | 2024-07-12 10:27 | MHC.PC.OV ---
Vital Signs 07/12/24 10:27 Height 5 ft 2 in Weight 125 lb 10.616 oz BMI 23.0 BP 110/62 Blood Pressure Location Lt brachial Position Sitting Pulse 82 Pulse Source Pulse Oximeter Pulse Oximetry (%) 97 Oxygen Delivery Method Room Air Intake Visit Reasons: pe Allergies aspirin Allergy (Intermediate, Verified 07/12/24 10:36) itchy body Medication List - Last Reconciled 07/12/24 by Flavio Cortes PA-C acetaminophen (Tylenol Extra Strength) 500 mg PO Q6H PRN bicalutamide 50 mg PO DAILY lidocaine 4% (Lidocaine Pain Relief) 1 patch topical DAILY 30 days multivitamin 1 tab PO DAILY omeprazole 20 mg PO DAILY 90 days Tobacco use date assessed: 07/12/24 Fall risk assessment: No Falls in past year Last assessed Fall Risk: 07/12/24 Dental Screening Dental Screen Date: 07/12/24 Did you have a dental visit in the last 12 months?: No Did you have a dental problem in the last 6 months where you did not have access to dental care?: No HPI pe HPI Details Patient is an 89-year-old male Georgian-speaking here today for an annual physical. ..? Patient currently living with his daughter in the [facility] area though was back and forth to [place].? Patient has a past medical history significant for prostate cancer, polyarthritis. Concerns--> patient's family concerned about patient's mental status as he often does not listen and leaves the home without being attended. He often goes to store to get scratch tickets. Patient's daughter is concerned about his safety as he does leave the home to go to work and leaves friend physical home alone for few hours during the day. Family has spoken to John about going into a assisted though he declines. Wondering if she can get a LIBRARY SERVICES COORDINATOR to help Pulmonary nodule: Has been followed by thoracic surgeon for pulmonary nodule with recurrent CTs. Most recent CT showing improving ground-glass opacities. . Prostate cancer: He has followed up with Urology and reports getting a biopsy in the past. Apparently is on hormonal therapy though this is unclear.. He denies any urinary symptoms . Vaccine: needs flu vaccine, Has gotten COVID. Needs PCV-20 PFSH Medical History GERD (gastroesophageal reflux disease) Prostate CA Surgical History History of colonoscopy History of esophagogastroduodenoscopy (EGD) Family History Brother Cancer Brother Cancer Brother Cancer Sister Cancer Sister Cancer Sister Cancer Social History Housing: House Are you a primary inpatient care manager rn to a significant other at home: No Do you presently have visiting nurse or other home services: No Alcohol intake: never Patient Tobacco Use Status: Never used Tobacco e-Cigarette/Vaping Use: Never Used Second Hand Smoke Exposure: No service: No Current occupational status: retired Cognitive needs: Yes (cane) Hearing needs: No Vision needs: No Questionnaire PHQ-9 Over the last 2 weeks, how often have you been bothered by any of the following problems? 1. Little interest or pleasure in doing things: not at all 2. Feeling down, depressed, or hopeless: not at all 3. Trouble falling or staying asleep, or sleeping too much: not at all 4. Feeling tired or having little energy: not at all 5. Poor appetite or overeating: not at all 6. Feeling bad about yourself - or that you are a failure or have let yourself or your family down: not at all 7. Trouble concentrating on things, such as reading the newspaper or watching television: not at all 8. Moving or speaking so slowly that other people could have noticed. Or the opposite - being so fidgety or restless that you have been moving around a lot more than usual: not at all 9. Thoughts that you would be better off or of hurting yourself in some way: not at all Total score: 0 Depression Screening Interpretation: Negative Depression Screening Done: Yes [id number] - PHQ-9 Billing: Yes Source: Developed by Drs. Mayank Clemente, Octavia Moreno, Mathieu Hinojosa and colleagues, with an educational viry from [employer]. Thrive Questionnaire Date Thrive assessed: 07/12/24 I am a: Patient What is your living situation today?: I have a steady place to live Within the past 12 months, did the food you bought not last and you didn't have the money to get more?: Never true Within the past 12 months, did you worry whether your food would run out before you got money to buy more?: Never true Do you have trouble paying for medicines?: No Do you have trouble getting transportation to medical appointments?: No Do you have trouble paying your heating and electricity bill?: No Do you have trouble taking care of your child, family member or friend?: No Do you have trouble with day-to-day activities such as bathing, preparing meals, shopping, managing finances, etc.?: No Are you currently unemployed and looking for a job?: No Are you interested in more education?: No Please select the resources that you would like help with: None THRIVE Score: 0 AUDIT C Alcohol Use Questionnaire (AUDIT-C) 1. How often do you have a drink containing alcohol?: Never 3. How often do you have six or more drinks on one occasion?: Never Total Score: 0 RENÉE-7 AMB Questionnaire RENÉE-7 Date RENÉE - 7 assessed: 07/12/24 Feeling nervous, anxious, or on edge: 0 = Not at all Not being able to stop or control worryin = Not at all Worrying too much about different things: 0 = Not at all Trouble relaxin = Not at all Being so restless that it is hard to sit still: 0 = Not at all Becoming easily annoyed or irritable: 0 = Not at all Feeling afraid as if something awful might happen: 0 = Not at all Total RENÉE-7 score (0-4 normal; 5-9 mild; 10-14 moderate; 15-21 severe): 0 Source: Developed by Drs. Mayank Clemente, Octavia Moreno, Mathieu Hinojosa and colleagues, with an educational viry from [employer]. RENÉE-7 Assessment Billing RENÉE-7 Assessment Tool: RENÉE-7 Assessment 22718 Review of Systems Const Denies body aches, Denies chills, Denies excessive sweating, Denies fatigue, Denies fever(s) and Denies headache(s) Eyes Denies blurry vision ENT Denies dysphagia, Denies vertigo, Denies dizziness, Denies headache(s), Denies hearing loss and Denies tinnitus Card Denies chest pain, Denies chest pain with activity, Denies syncope, Denies irregular heart rhythm and Denies dyspnea Resp Denies chest congestion, Denies cough, Denies hemoptysis, Denies dyspnea and Denies wheezing GI Denies abdominal pain, Denies melena, Denies hematochezia, Denies coffee ground emesis, Denies dysphagia, Denies diarrhea, Denies nausea and Denies vomiting Denies difficulty urinating, Denies dysuria, Denies urinary frequency, Denies urinary hesitancy and Denies urinary urgency Musc Denies arthralgias, Denies limited range of motion, Denies muscle cramps and Denies muscle weakness Skin/Breast Denies rash and Denies skin ulcer Neuro Denies Abnormal speech present, Denies confusion, Denies vertigo, Denies dizziness, Denies syncope, Denies headache(s), Denies memory loss and Denies seizure-like activity Psych Denies anxiety, Denies confusion, Denies depression, Denies memory loss, Denies panic attacks and Denies paranoia Endo Denies excessive sweating, Denies fatigue, Denies flushing, Denies polydipsia and Denies polyuria Aller/Immun Denies wheezing Physical exam (Primary Care) Vital Signs: Last Vital Signs Pulse 82 07/12/24 10:27 BP 110/62 07/12/24 10:27 Pulse Ox 97 07/12/24 10:27 Oxygen Delivery Method Room Air 07/12/24 10:27 BMI result Body Mass Index 23.0 Tobacco/Smoking Status: Tobacco use Status Tobacco use date assessed 07/12/24 07/12/24 10:35 Patient Tobacco Use Status Never used Tobacco 07/12/24 10:35 e-Cigarette/Vaping Use Never Used 07/12/24 10:35 PHQ-9: PHQ-9 Score PHQ-9: Total score 0 07/12/24 11:36 Depression Screening Interpretation: Negative Thrive Assessment: Date of Thrive Assessment Date Thrive assessed 07/12/24 07/12/24 10:35 Const General: cooperative, comfortable, no acute distress, alert and awake; No confusion Orientation/consciousness: oriented to person, oriented to place, patient oriented x3 and No confusion HENMT Head: Yes normocephalic Ears: external ears normal and TM's normal bilaterally Face and sinus: No sinus tenderness Mouth: Normal oral and palatal mucosa present and tongue normal Teeth and gingiva: dentition normal and gingiva normal Throat: Yes posterior oropharynx normal, Yes tonsils normal and Yes uvula midline Eyes Conjunctivae: conjunctivae normal Sclerae: sclerae normal Pupils: Equal, round and reactive pupils present EOM: EOMs intact bilaterally Direct Ophthalmoscopy: No no photophobia Neck Neck: Yes no lymphadenopathy, No tender and Yes no JVD Thyroid: Thyroid normal Carotids: no bruits Chest Chest palpation & inspection: no tenderness Resp Effort & Inspection: normal respiratory effort, no audible wheezes, not labored and no stridor Auscultation: no crackles, no rales, no rhonchi and no wheezes Cardio Jugular venous distension: no JVD Rate: regular rate, not bradycardic and not tachycardic Rhythm: regular rhythm Bruits: no carotid bruits Peripheral pulses: Peripheral pulses 2+ throughout GI Inspection: Yes normal to inspection, No abdominal wall ecchymosis and No visible herniation Palpation (GI): Soft to palpation, nontender, no guarding, not rigid and No hepatosplenomegaly present Auscultation: normoactive bowel sounds General: Yes no CVA tenderness Back/Spine/Pelvis Back: no CVA tenderness and No back tenderness Cervical Spine: cervical ROM normal Thoracic/Lumbar Spine: thoracic and lumbar spine normal to inspection, straight leg raise negative bilaterally, No thoraco-lumbar ROM limited and No lumbar spinal tenderness Skin Lesions: no lesions Rashes: no rashes Wounds: no wounds Neuro General: oriented to person, oriented to place, patient oriented x3, CN's II-XI intact bilaterally and No confusion Cranial nerves: Yes Equal, round and reactive pupils present and Yes Normal accommodation reflex present Cognition (Neuro): normal cognition Speech: No Abnormal speech present Gait exam (Neuro): Normal gait present Motor exam (neuro): 5/5 motor strength present throughout Extrem Other: LEFT KNEE: DECREASED RANGE OF MOTION, SOME OBVIOUS EDEMA NOTED. Right upper extremity: full ROM; no cyanosis Left upper extremity: full ROM; no cyanosis Right lower extremity: no edema Left lower extremity: no edema Psych Appearance: grossly normal Mental Status: mental status grossly normal Affect: normal affect Attitude: cooperative Thought process: Normal thought process present Coding Level of Care Code Est Pt Prev Care >65y(29353) Diagnoses Annual physical exam Z00.00 Prostate CA C61 Screening for diabetes mellitus (DM) Z13.1 Primary osteoarthritis of left knee M17.12 Osteoarthritis type: primary Memory impairment R41.3 Additional Codes RENÉE-7 Assessment Billing - RENÉE-7 Assessment Tool: RENÉE-7 Assessment 46381 ([id number]) Assessment & Plan Assessment & Plan (1) Annual physical exam: Code(s): Z00.00 - Encounter for general adult medical examination without abnormal findings Category: Medical Plan: As per HPI (2) Prostate CA: Code(s): C61 - Malignant neoplasm of prostate Category: Medical Plan: Patient followed by Urology in [place]. Was on hormonal therapy. Unclear if this is still true. Has missed the appointment with the urologist due to traveling back and forth to [place]. Patient's daughter promises to call Urology to reschedule appointment. (3) Screening for diabetes mellitus (DM): Code(s): Z13.1 - Encounter for screening for diabetes mellitus Category: Medical Plan: As per HPI (4) Osteoarthritis of left knee: Code(s): M17.12 - Unilateral primary osteoarthritis, left knee Category: Medical Qualifiers: Osteoarthritis type: primary Qualified Code(s): M17.12 - Unilateral primary osteoarthritis, left knee Plan: Patient does seem to have pretty significant left knee osteoarthritis, physical exam seems to be pretty edematous. Will send for orthopedic evaluation possible cortisone injection. (5) Memory impairment: Code(s): R41.3 - Other amnesia Category: Medical Plan: Patient's family interested in getting help with John at home. He lives at home with his daughter whom works full-time as well and is concerned about John leaving the home while she is gone to go buy scratch tickets. He would likely benefit from a LIBRARY SERVICES COORDINATOR to help Suzie with some activities of daily living in a reminder to take medication. Family has talked about placing John in a assisted though he adamantly declines --> Will try to set patient up with LIBRARY SERVICES COORDINATOR services. Orders: Orders Comprehensive [employer]. Panel Fast 07/12/24 Z13.1 - Encounter for screening for diabetes mellitus Prostate Specific Antigen Scr 07/12/24 C61 - Malignant neoplasm of prostate, Z12.5 - Encounter for screening for malignant neoplasm of prostate Referrals Orthopedics Referral M17.0 - Bilateral primary osteoarthritis of knee Medications: Changed From acetaminophen (Tylenol Extra Strength) 500 mg PO Q6H PRN Pain M17.11 - Unilateral primary osteoarthritis, right knee To acetaminophen (Tylenol Extra Strength) 500 mg PO Q8H PRN 90 tabs 2RF Pain 30 days M17.11 - Unilateral primary osteoarthritis, right knee Discontinued omeprazole Discontinued Reason: Doctor's Order 20 mg PO DAILY 90 days 90 caps 1RF
== END 2024-07-12 10:55 | disposition home or self-care (01) ==
PROVIDERS: PCP Physician Assistant; Visit Provider Physician Assistant
DX: Z00.00 Encounter for general adult medical examination without abnormal findings (principal); C61 Malignant neoplasm of prostate; Z13.1 Encounter for screening for diabetes mellitus; M17.12 Unilateral primary osteoarthritis, left knee; R41.3 Other amnesia

== ENCOUNTER → 2024-07-12 10:22 | Outpatient (BNVA) | payer OTHER, MEDICAID, SELFPAY | PROVIDERS: PCP Physician Assistant; Visit Provider Physician Assistant | DX: Z00.00 Encounter for general adult medical examination without abnormal findings (principal); C61 Malignant neoplasm of prostate; M17.12 Unilateral primary osteoarthritis, left knee; R41.3 Other amnesia | CPT/HCPCS: 96127; 99397 ==

== ENCOUNTER 2024-08-04 09:22 | Outpatient (REF) | payer OTHER, SELFPAY | END 2024-08-04 09:23 | disposition home or self-care (01) | LOC: HO.HOSX 09:22 | PROVIDERS: Visit Provider Orthopaedic Surgery | DX: Z13.89 Encounter for screening for other disorder (principal) ==

== ENCOUNTER 2025-01-10 09:55 | Outpatient (AMB) | payer MEDICARE, MEDICAID, SELFPAY ==
--- OUTSIDE RECORDS SUMMARY | 2025-01-10 09:59 | XMS_ITS | Encounter Summary ---
Author Organization [facility] Address [id number] [place] [id number] Care Team Providers Care Help Desk Support Name Role Phone Flavio Cortes Primary Care Provider [phone] Reason for Referral * Home Health (Routine) - Pending Review Specialty Diagnoses / Procedures Referred By Charu estrella Referred To Contact Home Health Services Diagnoses COVID-19 Leanne Newsome NP [address] [facility] [address] [place] [address] Phone: tel: fax: Referral ID Status Reason Start Date Expiration Date Visits Requested Visits Authorized [id number] Pending Review Consult and Treat 01/05/2025 01/05/2026 1 1 Reason for Visit * Reason Comments Generalized Body Aches * Auth/Cert (Routine) Specialty Diagnoses / Procedures Referred By Charu estrella Referred To Contact Diagnoses Failure to thrive in adult COVID-19 Procedures [facility] COMPREHENSIVE AUDIOMETRY THRESHOLD EVALUATION AND SPEECH RECOGNITION Luis Diego MD [address] [place] [address] Phone: tel: fax: [facility] [address] [place] [phone] Phone: tel: Referral ID Status Reason Start Date Expiration Date Visits Re quested Visits Authorized [id number] 1 1 Encounter Details Date Type Department Care Team (Latest Contact Info) Description 01/04/2025 6:12 PM EDT - 01/06/2025 12:00 PM EDT Hospital Encounter [facility] [address] [place] [id number] Luis Diego MD [address] [place] [address] Jerome Ugarte MD [address] [place] [address] COVID-19 (Primary Dx); Failure to thrive in adult Discharge Disposition: Home-Health Care Svc Social History Tobacco Use Types Packs/Day Years Used Date Smoking Tobacco: Never Smokeless Tobacco: Never Alcohol Use Standard Drinks/Week Comments Never 0 (1 standard drink = 0.6 oz pur e alcohol) Interpersonal Safety Answer Date Record ed Physical Abuse 01/05/2025 Verbal Abuse 01/05/2025 Sex and Gender Information Value Date Recorded Sex Assigned at Not on file Legal Sex Male 2:33 PM EST Gender Identity Not on file Sexual Orientation Not on file documented as of this encounter Last Filed Vital Signs Vital Sign Reading Time Taken Comments Blood Pressure 115/53 01/06/2025 7:33 AM EDT Pulse 73 01/06/2025 7:33 AM EDT Temperature 36.3 ??C (97.4 ??F) 01/06/2025 7:33 AM ED T Respiratory Rate 17 01/06/2025 7:33 AM EDT Oxygen Saturation 100% 01/06/2025 7:33 AM EDT Inhaled Oxygen Concentration - - Weight 56.5 kg (124 lb 9.6 oz) 01/04/2025 11:42 PM EDT Height 157.5 cm (5' 2 ) 01/04/2025 3:43 PM EDT Body Mass Index 22.79 01/04/2025 3:43 PM EDT documented in this encounter Discharge Summaries * Leanne Newsome NP - 01/06/2025 9:37 AM EDT Images from the original note were not included. [facility] DISCHARGE SUMMARY Patient Information John Guevara : 1935 [89 y.o.] Admitting Provider Luis Diego MD Discharge Provider Leanne Newsome NP, Jerome Galvin* Primary Care Physician GUICHO Díaz Admission Date 01/04/2025 Discharge Date 01/06/2025 Summary of Hospital Problems Presenting Chief Complaint: Weakness and Failure to thrive Primary Discharge Diagnosis: COVID 19 GERD Pulmonary nodules History of prostate cancer Anemia of chronic illness Secondary Discharge Diagnosis: BMI is 22 Discharge Destination: Home PT and Home OT Code Status at Discharge: FULL CODE Inpatient Consultants: None Pertinent Imaging Findings: Lab Results Component Value Date WBC 3.6 (L) 01/05/2025 HGB 11.5 (L) 01/05/2025 HCT 33.6 (L) 01/05/2025 MCV 99.4 (H) 01/05/2025 PLT 63 (L) 01/05/2025 Lab Results Component Value Date GLUCOSE 68 (L) 01/05/2025 CALCIUM 9.1 01/05/2025 NA 140 01/05/2025 K 3.6 01/05/2025 CO2 25 01/05/2025 CL 104 01/05/2025 BUN 28 (H) 01/05/2025 CREATININE 0.82 01/05/2025 Procedures Performed: None Please see chief complaint and HPI from history and physical by Milka LINDO from 01/04/2026elow: CHIEF COMPLAINT: Weakness, failure to thrive HPI: 89-year-old Brazilian-speaking male with PMH of prostate cancer, GERD, pulmonary nodules [facility] for body aches, neck pain Patient was accompanied by his daughter who I was unable to talk to but per ED note she was having severe caregiver burnout/fatigue. Patient lives with his daughter and she believes he is starting to need 24/7 care She also reported believing he was possibly developing dementia Patient was reported being accusatory, forgetting he ate but accusing his daughter of not feeding him. Patient states he has had cramping in his body, almost falling down but denies any falls or injury.He reports shaky hands . Denies any sick contacts. He reports a little chest pain but cannot give further details. Lives at home with family, ambulates independently at baseline. On 12/31 patient had visit to the ED for weakness, fatigue, decreased appetite and dizziness From 01/01 - CT Head WO Contrast and Chest XR showing no acute abnormalities Vitals: 118/72, pulse 98, 98% on room air, respiratory rate 16, afebrile Labs: WBC 4.4, hemoglobin 12.2, hematocrit 35.8, platelets 83, potassium 3.4, CO2 20, anion gap 12.BUN 35, creatinine 0.96, magnesium 2.4. Viral panel + SARS-CoV-2 Hospital Course Summary COVID 19 infection S/P remdesivir IV Continues isolation No evidence of hypoxic Oxygen saturations are 100% on room air Asymptomatic No sob or cough or chest congestion noted Hypokalemia Resolved Potassium is now 3.6 History of Prostate cancer Anemia of chronic illness H and H stable 11 and 33 Continue Casodex GERD Continue PPI Pulmonary nodules Follow up with PCP as outpatient Adult failure to thrive Home PT and OT BMI is 22 Stable FULL CODE Follow-Up Instructions and Recommendations Discharge Procedure Orders Ambulatory referral to Home Health Standing Status: Future Referral Priority: Routine Referral Type: Home Health Referral Reason: Consult and Treat Requested Specialty: Home Health Services Number of Visits Requested: 1 There are no outpatient Patient Instructions on file for this admission. Discharge Medications Your medication list CONTINUE taking these medications Instructions Last Dose Given Next Dose Due bicalutamide 50 mg tablet Commonly known as: CASODEX Notes to patient: resume [place] 1 tableta (50 mg en total) por v??a oral 1 (sendy) vez al d??a. (Take 1 tablet (50 mg total) by mouth 1 (one) time each day) Physical Exam at time of Discharge Physical Exam GENERAL: 89-year-old male resting comfortably in bed, no acute distress HEENT: Normocephalic. EOM intact. PERRL. Dry MM. CARDIAC: RRR. No murmur, rubs, gallops. Euvolemic PULMONARY: Lungs clear bilaterally, normal respiratory rate. No wheeze/rales. MSK: Moves all extremities, full ROM. No joint deformity. NEURO: Alert, oriented to self, place. Slightly confused with situation Vitals Visit Vitals BP 115/53 (BP Location: Left arm, Patient Position: Lying) Pulse 73 Temp 36.3 ??C (97.4 ??F) (Temporal) Resp 17 Temp (24hrs), Av.4 ??C (97.6 ??F), Min:36.3 ??C (97.3 ??F), Max:36.6 ??C (97.8 ??F) Body mass index is 22.79 kg/m??. No results found for: PTWT , PTHT Less than 30 minutes spent on day of discharge. Discharge planning was discussed with my attending physician Dr. Ugarte Who agrees with the above assessment and plan. Cosigned by Jerome Ugarte MD at 01/06/2025 3:49 PM EDT Associated attestation - Jerome Ugarte MD - 01/06/2025 3:49 PM EDT This is a split/shared visit with Leanne Newsome NP. I personally performed the medical decision making (MDM) for the care of this patient on 01/06/25 as documented below Patient was discussed with advanced practitioner . I personally saw and examined the patient bedside. Chart was reviewed by me personally including relevant history, updates, labs, imaging. Agree with the documentation and plan per OLGA except mentioned below. 89 years old male presented to the hospital with concern of social issues, failure to thrive. - Respiratory viral panel positive for SARS-CoV-2 but patient not having any respiratory issues. Stable. Saturating well on room air - PT OT. 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 Placement planning Jerome Ugarte MD 01/06/25 3:49 PM EDT * Leanne Newsome NP - 01/05/2025 12:38 PM EDT Images from the original note were not included. [facility] DISCHARGE SUMMARY Patient Information John Guevara : 1935 [89 y.o.] Admitting Provider Luis Diego MD Discharge Provider Leanne Newsome NP, Jerome Frazier Primary Care Physician GUICHO Díaz Admission Date 01/04/2025 Discharge Date 01/05/2025 Summary of Hospital Problems Presenting Chief Complaint: Weakness and Failure to thrive Primary Discharge Diagnosis: COVID 19 GERD Pulmonary nodules History of prostate cancer Anemia of chronic illness Secondary Discharge Diagnosis: BMI is 22 Discharge Destination: Home PT and Home OT Code Status at Discharge: FULL CODE Inpatient Consultants: None Pertinent Imaging Findings: Lab Results Component Value Date WBC 3.6 (L) 01/05/2025 HGB 11.5 (L) 01/05/2025 HCT 33.6 (L) 01/05/2025 MCV 99.4 (H) 01/05/2025 PLT 63 (L) 01/05/2025 Lab Results Component Value Date GLUCOSE 68 (L) 01/05/2025 CALCIUM 9.1 01/05/2025 NA 140 01/05/2025 K 3.6 01/05/2025 CO2 25 01/05/2025 CL 104 01/05/2025 BUN 28 (H) 01/05/2025 CREATININE 0.82 01/05/2025 Procedures Performed: None Please see chief complaint and HPI from history and physical by Milka LINDO from 01/04/2026elow: CHIEF COMPLAINT: Weakness, failure to thrive HPI: 89-year-old Brazilian-speaking male with PMH of prostate cancer, GERD, pulmonary nodules [facility] for body aches, neck pain Patient was accompanied by his daughter who I was unable to talk to but per ED note she was having severe caregiver burnout/fatigue. Patient lives with his daughter and she believes he is starting to need 24/7 care She also reported believing he was possibly developing dementia Patient was reported being accusatory, forgetting he ate but accusing his daughter of not feeding him. Patient states he has had cramping in his body, almost falling down but denies any falls or injury.He reports shaky hands . Denies any sick contacts. He reports a little chest pain but cannot give further details. Lives at home with family, ambulates independently at baseline. On 12/31 patient had visit to the ED for weakness, fatigue, decreased appetite and dizziness From 01/01 - CT Head WO Contrast and Chest XR showing no acute abnormalities Vitals: 118/72, pulse 98, 98% on room air, respiratory rate 16, afebrile Labs: WBC 4.4, hemoglobin 12.2, hematocrit 35.8, platelets 83, potassium 3.4, CO2 20, anion gap 12.BUN 35, creatinine 0.96, magnesium 2.4. Viral panel + SARS-CoV-2 Hospital Course Summary COVID 19 infection S/P remdesivir IV Continues isolation No evidence of hypoxic Oxygen saturations are 100% on room air Asymptomatic No sob or cough or chest congestion noted Hypokalemia Resolved Potassium is now 3.6 History of Prostate cancer Anemia of chronic illness H and H stable 11 and 33 Continue Casodex GERD Continue PPI Pulmonary nodules Follow up with PCP as outpatient Adult failure to thrive Home PT and OT BMI is 22 Stable FULL CODE Follow-Up Instructions and Recommendations Discharge Procedure Orders Ambulatory referral to Home Health Standing Status: Future Referral Priority: Routine Referral Type: Home Health Referral Reason: Consult and Treat Requested Specialty: Home Health Services Number of Visits Requested: 1 There are no outpatient Patient Instructions on file for this admission. Discharge Medications Your medication list ASK your doctor about these medications Instructions Last Dose Given Next Dose Due bicalutamide 50 mg tablet Commonly known as: CASODEX Take 1 tablet (50 mg total) by mouth 1 (one) time each day Physical Exam at time of Discharge Physical Exam GENERAL: 89-year-old male resting comfortably in bed, no acute distress HEENT: Normocephalic. EOM intact. PERRL. Dry MM. CARDIAC: RRR. No murmur, rubs, gallops. Euvolemic PULMONARY: Lungs clear bilaterally, normal respiratory rate. No wheeze/rales. MSK: Moves all extremities, full ROM. No joint deformity. NEURO: Alert, oriented to self, place. Slightly confused with situation Vitals Visit Vitals BP 105/54 (BP Location: Left arm, Patient Position: Lying) Pulse 80 Temp 36.4 ??C (97.5 ??F) (Temporal) Resp 17 Temp (24hrs), Av.4 ??C (97.6 ??F), Min:35.8 ??C (96.5 ??F), Max:36.9 ??C (98.5 ??F) Body mass index is 22.79 kg/m??. No results found for: PTWT , PTHT Greater than 45 minutes spent on day of discharge. Discharge planning was discussed with my attending physician Dr. Ugarte Who agrees with the above assessment and plan. Cosigned by Jerome Ugarte MD at 01/06/2025 3:49 PM EDT Associated attestation - Jerome Ugarte MD - 01/06/2025 3:49 PM EDT This is a split/shared visit with Leanne Newsome NP. I personally performed the medical decision making (MDM) for the care of this patient as documentedbelow Patient was discussed with advanced practitioner . I personally saw and examined the patient bedside. Chart was reviewed by me personally including relevant history, updates, labs, imaging. Agree with the documentation and plan per OLGA except mentioned below. 89 years old male presented to the hospital with concern of social issues, failure to thrive. - Respiratory viral panel positive for SARS-CoV-2 but patient not having any respiratory issues. Stable. Saturating well on room air - PT OT. 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 Placement planning Jerome Ugarte MD 01/06/25 3:48 PM EDT documented in this encounter Medications at Time of Discharge bicalutamide (CASODEX) 50 mg tablet Take 1 tablet (50 mg total) by mouth 1 (one) time each day 10/20/2024 documented as of this encounter Discharge Disposition Disposition Code Departure Means Destination Comment s Home-Health Care Svc Wheelchair documented in this encounter Progress Notes * Geovanna Whiting RN - 01/06/2025 11:58 AM EDT Discharge done with daughter. Daughter states she does not have any questions. IV line removed by primary nurse. Daughter driving patient home. * Lanny Briscoe LCSW - 01/06/2025 11:46 AM EDT Devendra spoke with dept health spa manager who spoke with the pt's daughter she stated that she will be @[facility] at 12 pm to bring the pt home sw let the unit know * Lanny Briscoe LCSW - 01/05/2025 2:30 PM EDT Devendra spoke with dept health spa manager she reached out to the pt's daughter Elisha she agreed to pick the pt up on 01/06 @ 12 pm [facility] referral will [facility] placed to [facility] * Lanny Briscoe LCSW - 01/05/2025 1:17 PM EDT Devendra reached out to the pt's daughter to let her know the pt is ready to d/c home the daughter statedthat she is no longer able to care for the pt she does not want him in her home tw explained to thedaughter [facility] does not do LTC placements she stated that if she picks him up she will leave him homealone while she is at work tw offered to refer the pt to [facility] for in home services she stated that she does not want anyone in her home while she is not there devendra will continue to follow for d/c planning * Olesya Barrios OT - 01/05/2025 9:45 AM EDT [facility] Occupational Therapy Evaluation DATE: Sunday January 05, 2025 TIME IN: 0945 TIME OUT: 1015 Pt: John Guevara ROOM: 503/503-1 Discharge Recommendation: Home with OT services Equipment Recommendation: none Staff recommendations for safe patient handling: Supervision without AD Assessment: Patient is a 89 y.o. y.o. male presenting for OT evaluation following admission due to failure to thrive, COVID-19. During today's skilled acute care OT evaluation, pt demonstrated the following deficits: decreased ADLs, endurance . Pt currently requires assistance for ADLs and supervision level for functional transfers/mobility. Pt will continue to benefit from skilled acute care OT services this admission to facilitate improvements in the areas of deficit listed above and to progress toward their PLOF with ADLs and IADLs. OT Time Calculation OT Start Time: 0945 OT Stop Time: 1015 OT Time Calculation (min): 30 min History of Present Illness: Patient is a 89 y.o. male admitted to [facility] on 01/04/2025. Occupational Therapy evaluation and treatment ordered to assess ADL independence, safety, and functional mobility for discharge planning. Patient Active Problem List Diagnosis COVID-19 Past Medical History: Diagnosis Date GERD (gastroesophageal reflux disease) DX:GERD (gastroesophageal reflux disease) History of prostate cancer 2018 DX:History of prostate cancer Oropharyngeal dysphagia 09/29/2023 DX:Oropharyngeal dysphagia Pulmonary nodule 09/29/2023 DX:Pulmonary nodule Past Surgical History: Procedure Laterality Date ESOPHAGOGASTRODUODENOSCOPY PROCEDURE: VA ESOPHAGOGASTRODUODENOSCOPY TRANSORAL DIAGNOSTIC OTHER SURGICAL HISTORY PROCEDURE: COLONOSCOPY, SURGICAL Subjective Patient agreeable to engage in OT evaluation and treatment. Objective Patient was identified by name and x2. Hearing: Impaired Speech: Intact Vision: Vision: Intact 01/05/2545 OT Last Visit OT Received On 01/05/25 General Family/Caregiver Present No OT Time Calculation OT Start Time 45 OT Stop Time 1015 OT Time Calculation (min) 30 min Precautions Medical Precautions Contact;Fall Risk (+ COVID) Safety Interventions ID band on;Call doyle within reach;Bed alarm RUE Weight Bearing Status Full LUE Weight Bearing Status Full RLE Weight Bearing Status Full LLE Weight Bearing Status Full Vital Signs Patient Identification Yes Oxygen Therapy Oxygen Therapy None (Room air) Pain Assessment Pain Assessment 0-10 Pain Score 6 Pain Type Acute pain Pain Location Neck Pain Orientation Posterior Home Living Type of Home Apartment Lives With Daughter Home Adaptive Equipment None Home Layout One level (pt lives on 3rd floor apt with 3 flights of stairs. 1 level once inside apartment) Home Access Stairs to enter with rails Entrance Stairs-Number of Steps 3 flights Prior Function Level of [place] Independent with mobility and functional transfers Ambulation Status Household ambulator Receives Help From Family Indoor Mobility Assistance Independent Stairs Assistance Independent Prior Device Use No prior device use Which is your dominant hand? Right ADL/IADL History ADL Assistance (Self Care) Independent Homemaking Assistance (Functional Cognition) Independent ADL Eating Assistance Setup Grooming Assistance Setup Oral Hygiene Assistance Setup Bathing Assistance Supervision UE Dressing Assistance Setup LE Dressing Assistance Supervision Footwear Assistance Minimum assistance Toileting Assistance Supervision Bed Mobility Sitting to Lying Assistance Supervision Lying to Sitting Assistance Supervision Functional Transfers Sit to Stand Assistance Supervision (without AD) Toilet Transfer Assistance Supervision (without AD) Functional Mobility Walking Assistance Supervision Device No device Distance Ambulated (ft) 10 (x2, to and from bathroom in room) Cognition Overall Cognitive Status WFL Arousal/Alertness Appropriate responses to stimuli Following Commands Follows one step commands without difficulty Perception Inattention/Neglect Appears intact Initiation Appears intact Proprioception Proprioception No apparent deficits Sensation Light Touch No apparent deficits Hand Function Gross Grasp Functional Coordination Coordination Functional RUE Assessment RUE Assessment Within Functional Limits LUE Assessment LUE Assessment Within Functional Limits OT Assessment OT Assessment Results Decreased ADL status;Decreased upper extremity strength;Decreased endurance;Decreased functional mobility Prognosis Good Evaluation/Treatment Tolerance Patient tolerated treatment well Plan Treatment Interventions ADL retraining;Functional transfer training;Endurance training OT Plan Skilled OT OT Frequency 2-5 days per week OT Duration of Sessions 30-60 min per session OT Treatments per day 1 time per day OT - Evaluation Status Complete OT Discharge Recommendations Home OT Equipment Recommended None OT Evaluation Time Entry OT Evaluation (Low) Time Entry 30 AM-PAC 6 Clicks Occupational Therapy Scoring Form: Unable: 1 A Lot: 2 A Little: 3 None: 4 How much help from another person does the patient currently need? Putting on and taking off regular lower body clothing [] [] [x] [] Bathing (including washing, rinsing and drying) [] [] [x] [] Toileting, which includes using toilet, bed anderson, or urinal [] [] [x] [] Putting on and taking off regular upper body clothing [] [] [x] [] Personal grooming such as brushing teeth [] [] [] [x] Eating meals [] [] [] [x] Score: 20 /24 Score indicates pt is safe/appropriate to discharge home with therapy recommendation listed above. *Score of 18 and below indicates rehab is needed* *Score of over 18 indicates pt is safe to discharge home* ADDITIONAL COMMENTS: Chart reviewed. MANUEL louises pt for session. Pt agrees to participate and received supine withHOB elevated. All lines in place. No family or guests present during session. Medical precautions observed appropriately. Initiated education on Role of OT and ADL Techniques and Safety . Pt needs reinforcement for carry over. EXIT STATUS: Session ended with patient supine with HOB elevated. Needs in reach. RN made aware. OT Goals Pt seen for OT eval and treatment session to assess ADL and functional status. See above for details of evaluation/treatment session. OT Assessment OT Assessment Results: Decreased ADL status, Decreased upper extremity strength, Decreased endurance, Decreased functional mobility Prognosis: Good Evaluation/Treatment Tolerance: Patient tolerated treatment well Plan Treatment Interventions: ADL retraining, Functional transfer training, Endurance training OT Plan: Skilled OT OT Frequency : 2-5 days per week OT Duration of Sessions: 30-60 min per session OT Treatments per day: 1 time per day OT - Evaluation Status: Complete OT Discharge Recommendations: Home OT Equipment Recommended: None Encounter Problems Encounter Problems (Active) Template: Occupational Therapy Problem: OT Short Term Goals Dates: Start: 01/05/25 Goal: pt will complete lower body dressing task AE PRN IND Dates: Start: 01/05/25 Expected End: 01/12/25 Goal: pt will complete toilet txfer without AD IND Dates: Start: 01/05/25 Expected End: 01/12/25 Encounter Problems (Resolved) There are no resolved problems. Education Documentation Body Mechanics, taught by Olesya Barrios OT at 01/05/2025 11:05 AM. Learner: Patient Readiness: Acceptance Method: Explanation Response: Verbalizes Understanding, Needs Reinforcement Comment: Pt educated on completing lower body dressing and footwear tasks from seated position. Pt educated on pacing self t/o daily tasks. ADL Training, taught by Olesya Barrios OT at 01/05/2025 11:05 AM. Learner: Patient Readiness: Acceptance Method: Explanation Response: Verbalizes Understanding, Needs Reinforcement Comment: Pt educated on completing lower body dressing and footwear tasks from seated position. Pt educated on pacing self t/o daily tasks. Education Comments No comments found. Olesya Barrios OT * Eric Nichols - 01/05/2025 9:00 AM EDT [facility] Physical Therapy Evaluation & Treatment PT Discharge Recommendations: Home PT Staff Recommendations for safe patient handling: CGA for ambulation Precautions Medical Precautions: Contact, Fall Risk (+ COVID) Safety Interventions: ID band on, Call doyle within reach, Bed alarm RUE Weight Bearing Status: Full LUE Weight Bearing Status: Full RLE Weight Bearing Status: Full LLE Weight Bearing Status: Full Fall prevention education provided including use of call light in hospital, use of appropriate assistive device, safe mobility techniques, and safety measures at home. PT Received On: 01/05/25 PT Start Time: 0900 PT Stop Time: 929 PT Time Calculation (min): 30 min General Family/Caregiver Present: No Precautions Medical Precautions: Contact, Fall Risk (+ COVID) Safety Interventions: ID band on, Call doyle within reach, Bed alarm RUE Weight Bearing Status: Full LUE Weight Bearing Status: Full RLE Weight Bearing Status: Full LLE Weight Bearing Status: Full Cognition Overall Cognitive Status: Within Functional Limits Orientation Level: Disoriented to time, Disoriented to situation (pt understands he is in the hospital; oriented to self and place only.) Hearing: Intact Vision: Intact Speech: Intact Integumentary: Unremarkable History of Present Illness: Patient is a 89 y.o. male admitted to [facility] on 01/04/2025. Patient Active Problem List Diagnosis COVID-19 Past Medical History: Diagnosis Date GERD (gastroesophageal reflux disease) DX:GERD (gastroesophageal reflux disease) History of prostate cancer 2018 DX:History of prostate cancer Oropharyngeal dysphagia 09/29/2023 DX:Oropharyngeal dysphagia Pulmonary nodule 09/29/2023 DX:Pulmonary nodule Past Surgical History: Procedure Laterality Date ESOPHAGOGASTRODUODENOSCOPY PROCEDURE: VA ESOPHAGOGASTRODUODENOSCOPY TRANSORAL DIAGNOSTIC OTHER SURGICAL HISTORY PROCEDURE: COLONOSCOPY, SURGICAL Social History Home Living Environment: Home Living Type of Home: Apartment Lives With: Daughter Home Adaptive Equipment: None Home Layout: One level (pt lives on 3rd floor apt with 3 flights of stairs. 1 level once inside apartment) Home Access: Stairs to enter with rails Entrance Stairs-Number of Steps: 3 flights Prior Function Level of [place]: Independent with mobility and functional transfers Ambulation Status: Household ambulator Receives Help From: Family Indoor Mobility Assistance: Independent Stairs Assistance : Independent Prior Device Use: No prior device use Which is your dominant hand?: Right General Assessment 01/05/25 0900 PT Last Visit PT Received On 01/05/25 General Family/Caregiver Present No PT Time Calculation PT Start Time 899 PT Stop Time 929 PT Time Calculation (min) 30 min Precautions Medical Precautions Contact;Fall Risk (+ COVID) Safety Interventions ID band on;Call doyle within reach;Bed alarm RUE Weight Bearing Status Full LUE Weight Bearing Status Full RLE Weight Bearing Status Full LLE Weight Bearing Status Full Vital Signs Patient Identification Yes Oxygen Therapy Oxygen Therapy None (Room air) Pain Assessment Pain Assessment No/denies pain Cognition Overall Cognitive Status WFL Home Living Type of Home Apartment Lives With Daughter Home Adaptive Equipment None Home Layout One level (pt lives on 3rd floor apt with 3 flights of stairs. 1 level once inside apartment) Home Access Stairs to enter with rails Entrance Stairs-Number of Steps 3 flights Prior Function Level of [place] Independent with mobility and functional transfers Ambulation Status Household ambulator Receives Help From Family Indoor Mobility Assistance Independent Stairs Assistance Independent Prior Device Use No prior device use Which is your dominant hand? Right Activity Tolerance Endurance Tolerates 20 - 30 min activity with multiple rests Sensation Light Touch No apparent deficits Static Sitting Balance Static Sitting-Level of Assistance Supervision Static Standing Balance Static Standing-Level of Assistance Close supervision Static Standing-Balance Support No upper extremity supported Dynamic Standing Balance Dynamic Standing-Level of Assistance Contact guard Dynamic Standing-Balance Ambulation Dynamic Standing-Balance Support No upper extremity supported Bed Mobility Lying to Sitting Assistance Supervision Lying to Sitting Deficit Supervision/safety awareness Transfers Sit to Stand Assistance Supervision Sit to Stand Deficit Supervision/safety awareness Ambulation Walking Assistance Contact guard Walking Deficit Supervision/safety awareness;Increased time to complete;Limited endurance Device No device Distance Ambulated (ft) 20 Comments Pt has difficulty holding head up and looking forward due to increased neck pain with neckextension Stairs 4 steps: Assistance Contact guard 4 steps: Deficit Supervision/safety awareness;Increased time to complete;Limited endurance Device No device Number of Stairs 5 RLE Assessment RLE Assessment Within Functional Limits LLE Assessment LLE Assessment Within Functional Limits PT Assessment PT Assessment Results Decreased endurance;Impaired gait Prognosis Good Evaluation/Treatment Tolerance Patient tolerated treatment well Comments Pt had good tolerance to therapy session. Pt was independent prior to hospitaliziation with functional mobilty and transfers. Pt is below baseline secondary to COVID and decreased endurance.Pt is safe to return home and able to complete functional activities although he has 3 flights of stairs to enter house and may need assistance due to fatigue. Pt would benefit from home PT to address decreased activity tolerance and to return to PLOF. Medical Staff Made Aware Yes Plan Treatment/Interventions Functional transfer training;LE strengthening/ROM;Endurance training;Gait training;Balance training PT Plan Skilled PT PT Frequency 2-5 days per week PT Discharge Recommendations Home PT PT - Evaluation Status Complete PT Evaluation Time Entry PT Evaluation (Moderate) Time Entry 30 Treatment performed during evaluation: None performed ADDITIONAL COMMENTS: Chart reviewed. RN clears pt for session. Pt agrees to participate and presented in supine upon PT arrival. All lines in place. Gait belt utilized throughout treatment to maximize safety. Medical precautions observed appropriately. Initiated education on the importance of PT, bed mobility safety, Transfer Safety, Ambulation Safety , Therapy Plan of Care, Home Safety, Energy Conservations strategies, and importance of OOB activity . Pt verbalized understanding. EXIT STATUS: Session ended with patient seated on toilet with OT, tray table and call light within reach, and RNmade aware. Physical Therapy Assessment/Plan John Guevara is a 89 y.o. male admitted to [facility] on 01/04/2025 for Failure to thrive in adult [R62.7] COVID-19 [U07.1] . Pt presents with decreased BLE strength, balance deficits, decreased activity tolerance, and far below functional baseline. Pt performed bed mobility Supervision, Transfers with Supervision, None and ambulates Contact guard with None 20 ft . Pt will benefit from skilled acute PT during hospital stay to improve the deficits listed above and optimize function. PT recommends Home PT when medically stable for safe discharge and to optimize functional mobility and independence. Goals Encounter Problems Encounter Problems (Active) Template: Physical Therapy Problem: PT Short Term Goals Dates: Start: 01/05/25 Goal: Pt will ambulate 100' without device and supervision Dates: Start: 01/05/25 Expected End: 01/08/25 Goal: Pt will ascend/descend 3 FOS with CGA Dates: Start: 01/05/25 Expected End: 01/08/25 Encounter Problems (Resolved) There are no resolved problems. Education Documentation Body Mechanics, taught by Eric Nichols at 01/05/2025 12:21 PM. Learner: Patient Readiness: Acceptance Method: Explanation Response: Verbalizes Understanding Home Exercise Program, taught by Eric Nichols at 01/05/2025 12:21 PM. Learner: Patient Readiness: Acceptance Method: Explanation Response: Verbalizes Understanding Mobility Training, taught by Eric Nicohls at 01/05/2025 12:21 PM. Learner: Patient Readiness: Acceptance Method: Explanation Response: Verbalizes Understanding Education Comments No comments found. Eric Nichols Cosigned by Marjorie Smith PT at 01/05/2025 12:26 PM EDT Associated attestation - Marjorie Smith PT - 01/05/2025 12:26 PM EDT PT was integrally and physically involved in the decision making, delivery of interventions and ongoing assessment during the patient's care session . * Kana Donnelly, RN - 01/04/2025 10:59 PM EDT ED RN HANDOFF (All Aguilar Below Must Be Completed) Reason/Diagnosis for Admission: Observation / Covid + Type of Admission: [x] Medsurg, [] Telemetry Already in a Hospital Bed: [] Yes / [x] No Room Considerations/Precautions (ex: fever, diarrhea, or any infectious concerns): [x] Yes / [] No Covid + Remote Computer Terminal Operator: [] Yes / [x] No If YES, Cardiac Rhythm: [] NSR, [] SB, [] ST, [] A-FIB, [] A-Flutter, [] Pacemaker, [] 1st Degree HB, [] 2nd Degree HB, [] 3rd Degree HB Reason for Remote Computer Terminal Operator: VS: Visit Vitals BP 118/72 (BP Location: Left arm, Patient Position: Lying) Pulse 98 Temp 36.7 ??C (98.1 ??F) (Oral) Resp 16 Ht 1.575 m (62 ) Wt 63.5 kg (140 lb) SpO2 98% BMI 25.61 kg/m?? Smoking Status Never BSA 1.64 m?? Current Mental Status: A/O x []4, []3, [x]2, []1 Current Ambulation Status: Independent at baseline - supposed to use a walker but does not per daughter IV Access: [x] Yes / [] No 20g L Hand Field IV present: [] Yes / [x] No Hx of Violence: [] Yes / [x] No / [] Unknown Fall Risk:[x] Yes / [] No Yellow Bracelet Applied [x] Yes / [] No Yellow Socks Applied [x] Yes / [] No Patient Belongings inventoried and BL completed: [x] Yes / [] No Patient belongings stored in the security closet: [] Yes (If Yes please supply Security bag #): [x] No Patient Medications stored in Pharmacy: [] Yes (If Yes please supply Medication Security bag #): [x] No ED Summary of Care: Patient presented to ED with daughter with body aches, cough and overall fatigue. Patient french speaking but understands some panamanian. Patient lives with daughter and daughter shows signs of caregiver fatigue. Patient unable to care for himself but daughter becoming unable to bear the stress of taking care of him. Covid + in the ED. VSS. Submitted by and Phone Extension: Kana, [phone] * Flavio Lewis RN - 01/04/2025 3:15 PM EDT BIBA from home for generalized body aches, specifically his neck and knees. Pain 07/01. Pt sitting in wheelchair. documented in this encounter H&P Notes * GUICHO Marks - 01/04/2025 10:53 PM EDT Images from the original note were not included. [facility] Please contact author [GUICHO Garcia] via [employer]. Patient: John Guevara Admission Date/Time: 01/04/2025 6:12 PM : 1935 [89 y.o.] Patient's PCP: GUICHO Díaz Attending Provider: Luis Diego MD CHIEF COMPLAINT: Weakness, failure to thrive HPI: 89-year-old Brazilian-speaking male with PMH of prostate cancer, GERD, pulmonary nodules presents to the ED for body aches, neck pain Patient was accompanied by his daughter who I was unable to talk to but per ED note she was having severe caregiver burnout/fatigue. Patient lives with his daughter and she believes he is starting to need 24/7 care She also reported believing he was possibly developing dementia Patient was reported being accusatory, forgetting he ate but accusing his daughter of not feeding him. Patient states he has had cramping in his body, almost falling down but denies any falls or injury.He reports shaky hands . Denies any sick contacts. He reports a little chest pain but cannot give further details. Lives at home with family, ambulates independently at baseline. On 12/31 patient had visit to the ED for weakness, fatigue, decreased appetite and dizziness From 01/01 - CT Head WO Contrast and Chest XR showing no acute abnormalities Vitals: 118/72, pulse 98, 98% on room air, respiratory rate 16, afebrile Labs: WBC 4.4, hemoglobin 12.2, hematocrit 35.8, platelets 83, potassium 3.4, CO2 20, anion gap 12. BUN 35, creatinine 0.96, magnesium 2.4. Viral panel + SARS-CoV-2 ROS Negative except noted in HPI ALLERGIES: Aspirin Drug Ingredient Other, Palpitations Not Specified Unspecified 10/01/2018 HOME MEDICATIONS: Unknown which medications patient takes at home, cannot verify PAST MEDICAL / SURGICAL HISTORY: Prostate cancer, per charts... further details unknown GERD Dysphagia Pulmonary nodules Colonoscopy EGD SOCIAL HISTORY: Denies tobacco or alcohol use. Ambulates independently, lives with family at home who helps with his care His daughter is the primary toddler caregiver and unable ot provide the level of care he needs FAMILY HISTORY: Unable to provide family history PHYSICAL EXAM: GENERAL: 89-year-old male resting comfortably in bed, no acute distress HEENT: Normocephalic. EOM intact. PERRL. Dry MM. CARDIAC: RRR. No murmur, rubs, gallops. Euvolemic PULMONARY: Lungs clear bilaterally, normal respiratory rate. No wheeze/rales. MSK: Moves all extremities, full ROM. No joint deformity. NEURO: Alert, oriented to self, place. Slightly confused with situation RESULTS/IMAGING: ASSESSMENT AND PLAN: COVID-19 Patient presented with body aches, generalized weakness, no upper respiratory symptoms - Analgesics, antiemetics as needed - Supplemental oxygen if needed - Isolation precautions Failure to thrive in adult Cognitive impairment - social and human services assistant consult for possible LTC versus short term rehab - PT/ OT consult - Fall and aspiration precautions FULL CODE HCP: milly Tello - [phone] PPX: Pneumoboots, Lovenox Case and plan discussed with: Dr. Diego Cosigned by Luis Diego MD at 01/06/2025 2:18 AM EDT Associated attestation - Luis Diego MD - 01/06/2025 2:18 AM EDT This is a split/shared visit with GUICHO Marks. I personally performed the medical decision making (MDM) for the care of this patient on 01/04/2025 as documented below 89 year-old male with history of prostate cancer on bicalutamide, GERD presents with generalized weakness secondary to COVID-19. After discussion with the ER provider the patient will be placed in observation. The patient is currently on room air and doing well from a pulmonary standpoint. He is, however, too weak from the infection to assist in his own care. He is currently living at home and is cared for by family who are currently unable to adequately care for him due to his weakness and resistance to their care. He will be placed in observation and given supportive care for his COVID-19. PT/OT will consulted to evaluate the patient. He will continue his bicalutamide for his prostate cancer. Luis Diego MD 01/06/25 1:57 AM EDT documented in this encounter Plan of Treatment Scheduled Referrals Name Type Priority Associated Diagnoses Order Schedule Ambulatory referral to Home Health Outpatient Referral Routine COVID-19 Expected: 01/05/2025, Expires: 02/04/2025 documented as of this encounter Procedures Procedure Name Priority Date/Time Associated Diagnosis Comments CBC WITH AUTO DIFFERENTIAL Routine 01/05/2025 6:54 AM EDT CBC AND DIFFERENTIAL Routine 01/05/2025 6:54 AM EDT BASIC METABOLIC PANEL Routine 01/05/2025 6:54 AM EDT URINALYSIS WITH REFLEX MICROSCOPIC AND CULTURE STAT 01/04/2025 10:13 PM EDT SONG URINE CULTURE TUBE STAT 01/04/2025 10:13 PM EDT DRUG ABUSE SCREEN 8A PANEL, URINE STAT 01/04/2025 10:13 PM EDT URINALYSIS WITH REFLEX MICROSCOPIC AND CULTURE STAT 01/04/2025 10:13 PM EDT RESPIRATORY VIRUS PANEL MOLECULAR STUDY STAT 01/04/2025 7:29 PM EDT CBC WITH AUTO DIFFERENTIAL STAT 01/04/2025 6:38 PM EDT CBC AND DIFFERENTIAL STAT 01/04/2025 6:38 PM EDT THYROID STIMULATING HORMONE STAT Add-on 01/04/2025 6:38 PM EDT MAGNESIUM STAT Add-on 01/04/2025 6:38 PM EDT ETHANOL STAT Add-on 01/04/2025 6:38 PM EDT COMPREHENSIVE METABOLIC PANEL STAT 01/04/2025 6:38 PM EDT documented in this encounter Results * (ABNORMAL) CBC auto differential (01/05/2025 6:54 AM EDT) WBC 3.6(L) 4.8 - 10.8 K/mcL LAB HEMETOLOGY METHOD 01/05/2025 8:21 AM [facility] RBC 3.40(L) 4.50 - 5.50 M/mcL LAB HEMETOLOGY METHOD 01/05/2025 8:21 AM [facility] Hemoglobin 11.5(L) 13.5 - 17.5 g/dL LAB HEMETOLOGY METHOD 01/05/2025 8:21 AM [facility] Hematocrit 33.6(L) 42.0 - 54.0 % LAB HEMETOLOGY METHOD 01/05/2025 8:21 AM [facility] MCV 99.4(H) 79.0 - 98.0 FL LAB HEMETOLOGY METHOD 01/05/2025 8:21 AM [facility] MCH 34.0(H) 27.0 - 32.0 pcg LAB HEMETOLOGY METHOD 01/05/2025 8:21 AM [facility] MCHC 34.2 32.0 - 37.0 g/dL LAB HEMETOLOGY METHOD 01/05/2025 8:21 AM [facility] RDW 13.5 11.0 - 15.0 % LAB HEMETOLOGY METHOD 01/05/2025 8:21 AM [facility] Platelets 63(L) 130 - 400 K/mcL LAB HEMETOLOGY METHOD 01/05/2025 8:21 AM [facility] Comment:reviewed by slide MPJacquelyn LAB HEMETOLOGY METHOD 01/05/2025 8:21 AM [facility] Comment:Not Measured NRBC 0.0 <1.0 % LAB HEMETOLOGY METHOD 01/05/2025 8:21 AM [facility] NRBC Absolute 0.00 <0.10 K/mcL LAB HEMETOLOGY METHOD 01/05/2025 8:21 AM [facility] Neutrophils Relative 43.0 % LAB HEMETOLOGY METHOD 01/05/2025 8:21 AM [facility] Lymphocytes Relative 46.9 % LAB HEMETOLOGY METHOD 01/05/2025 8:21 AM [facility] Monocytes Relative 6.7 % LAB HEMETOLOGY METHOD 01/05/2025 8:21 AM [facility] Eosinophils Relative 2.8 % LAB HEMETOLOGY METHOD 01/05/2025 8:21 AM [facility] Basophils Relative 0.3 % LAB HEMETOLOGY METHOD 01/05/2025 8:21 AM [facility] Immature Granulocytes Relative 0.3 % LAB HEMETOLOGY METHOD 01/05/2025 8:21 AM [facility] Neutrophils Absolute 1.53 1.50 - 7.00 K/mcL LAB HEMETOLOGY METHOD 01/05/2025 8:21 AM [facility] Lymphocytes Absolute 1.67 1.00 - 5.00 K/mcL LAB HEMETOLOGY METHOD 01/05/2025 8:21 AM [facility] Monocytes Absolute 0.24 0.20 - 1.00 K/mcL LAB HEMETOLOGY METHOD 01/05/2025 8:21 AM [facility] Eosinophils Absolute 0.10 0.00 - 0.50 K/mcL LAB HEMETOLOGY METHOD 01/05/2025 8:21 AM [facility] Basophils Absolute 0.01 0.00 - 0.20 K/mcL LAB HEMETOLOGY METHOD 01/05/2025 8:21 AM [facility] Immature Granulocytes Absolute 0.01 0.00 - 0.03 K/mcL LAB HEMETOLOGY METHOD 01/05/2025 8:21 AM [facility] Blood Venous blood specimen / Unknown Venipuncture / Unknown 01/05/2025 6:54 AM EDT 01/05/2025 7:21 AM EDT us Luis Diego MD LAB BLOOD ORDERABLES Final Result [facility] [address] [place] [address], [place] [phone] * (ABNORMAL) Basic metabolic panel (01/05/2025 6:54 AM EDT) Sodium 140 133 - 145 mmol/L LAB CHEMISTRY METHOD 01/05/2025 8:13 AM [facility] Potassium 3.6 3.5 - 5.5 mmol/L LAB CHEMISTRY METHOD 01/05/2025 8:13 AM [facility] Chloride 104 96 - 110 mmol/L LAB CHEMISTRY METHOD 01/05/2025 8:13 AM [facility] CO2 25 21 - 32 mmol/L LAB CHEMISTRY METHOD 01/05/2025 8:13 AM [facility] Anion Gap 11 3 - 11 LAB CHEMISTRY METHOD 01/05/2025 8:13 AM [facility] Glucose 68(L) 70 - 100 mg/dL LAB CHEMISTRY METHOD 01/05/2025 8:13 AM [facility] BUN 28(H) 5 - 25 mg/dL LAB CHEMISTRY METHOD 01/05/2025 8:13 AM [facility] Creatinine 0.82 0.70 - 1.30 mg/dL LAB CHEMISTRY METHOD 01/05/2025 8:13 AM [facility] eGFR 85 >=60 mL/min/1. 73m2 LAB CHEMISTRY METHOD 01/05/2025 8:13 AM [facility] Comment:Calculation based on the??Chronic Kidney Disease Epidemiology Collaboration (CKD-EPI) equation refit??without adjustment for race. BUN/Creatinine Ratio 34.1 LAB CHEMISTRY METHOD 01/05/2025 8:13 AM [facility] Calcium 9.1 8.5 - 10.5 mg/dL LAB CHEMISTRY METHOD 01/05/2025 8:13 AM EDT [facility] Blood Venous blood specimen / Unknown Venipuncture / Unknown 01/05/2025 6:54 AM EDT 01/05/2025 7:23 AM EDT Luis Diego MD LAB BLOOD ORDERABLES Final Result Performing Organization Address [facility]/ZIP Co de Phone Number [facility] [address] [place] [address], [place] [phone] * Song urine culture tube (01/04/2025 10:13 PM EDT) Extra Tube Hold for add-ons. 01/05/2025 12:05 AM EDT [facility] Comment:Auto resulted. Urine Urine specimen obtained by clean catch procedure / Unknown Non-blood Collection / Unknown 01/04/2025 10:13 PM EDT 01/04/2025 10:36 PM EDT Andi LINDO LAB URINE ORDERABLES Final Resul t Performing Organization Address [facility] de Phone Number [facility] [address] [place] [address], [place] [phone] * (ABNORMAL) Urinalysis with reflex microscopic and culture (01/04/2025 10:13 PM EDT) Specific Kosse Urine 1.031(H) 1.003 - 1.030 LAB URINALYSIS - AUTOMATED METHOD 01/04/2025 10:45 PM EDT [facility] pH, Urine 5.5 5.0 - 8.0 pH LAB URINALYSIS - AUTOMATED METHOD 01/04/2025 10:45 PM EDT [facility] Leukocytes, Urine Negative Negative LAB URINALYSIS - AUTOMATED METHOD 01/04/2025 10:45 PM EDT [facility] Nitrite, Urine Negative Negative LAB URINALYSIS - AUTOMATED METHOD 01/04/2025 10:45 PM [facility] Protein, Urine 30(A) <=Trace mg/dL LAB URINALYSIS - AUTOMATED METHOD 01/04/2025 10:45 PM [facility] Glucose, Urine Negative Negative mg/dL LAB URINALYSIS - AUTOMATED METHOD 01/04/2025 10:45 PM [facility] Ketones, Urine >=80(A) Negative mg/dL LAB URINALYSIS - AUTOMATED METHOD 01/04/2025 10:45 PM [facility] Urobilinogen, Urine 1.0 0.2 - 1.0 mg/dL LAB URINALYSIS - AUTOMATED METHOD 01/04/2025 10:45 PM [facility] Bilirubin, Urine Small(A) Negative LAB URINALYSIS - AUTOMATED METHOD 01/04/2025 10:45 PM [facility] Blood, Urine Negative Negative LAB URINALYSIS - AUTOMATED METHOD 01/04/2025 10:45 PM [facility] RBC, Urine 4.4(H) 0 - 4 /HPF LAB URINALYSIS - AUTOMATED METHOD 01/04/2025 10:45 PM [facility] WBC, Urine 2.9 0 - 4 /HPF LAB URINALYSIS - AUTOMATED METHOD 01/04/2025 10:45 PM [facility] Squamous Epithelial, Urine 33 0 - 60 /LPF LAB URINALYSIS - AUTOMATED METHOD 01/04/2025 10:45 PM [facility] Bacteria, Urine Negative Negative /HPF LAB URINALYSIS - AUTOMATED METHOD 01/04/2025 10:45 PM [facility] Hyaline Casts, Urine 5.2(H) 0 - 3 /LPF LAB URINALYSIS - AUTOMATED METHOD 01/04/2025 10:45 PM EDT [facility] Urine Urine specimen obtained by clean catch procedure / Unknown Non-blood Collection / Unknown 01/04/2025 10:13 PM EDT 01/04/2025 10:37 PM EDT Andi LINDO LAB URINE ORDERABLES Final Resul t [facility] [address] [place] [address], * Drug abuse screen 8a panel, urine (01/04/2025 10:13 PM EDT) Amphetamine Screen, Ur Negative Negative LAB CHEMISTRY METHOD 01/04/2025 11:01 PM EDT [facility] Comment:Certain OTC medicati ons containing ephedrine, phenylephrine, pseudoephedrine and phenylpropanolamine can cause false positive results. Barbiturate Screen, Ur Negative Negative LAB CHEMISTRY METHOD 01/04/2025 11:01 PM [facility] Benzodiazepine Screen, Ur Negative Negative LAB CHEMISTRY METHOD 01/04/2025 11:01 PM [facility] Cocaine Screen, Ur Negative Negative LAB CHEMISTRY METHOD 01/04/2025 11:01 PM [facility] Opiate Screen, Ur Negative Negative LAB CHEMISTRY METHOD 01/04/2025 11:01 PM [facility] Cannabinoid (THC) Screen, Ur Negative Negative LAB CHEMISTRY METHOD 01/04/2025 11:01 PM T [facility] Comment:Specimens from patie nts taking pantoprazole sodium (Protonix) have been shown to produce false positive results. Oxycodone Screen, Ur Negative Negative LAB CHEMISTRY METHOD 01/04/2025 11:01 PM [facility] Fentanyl, Ur Negative Negative LAB CHEMISTRY METHOD 01/04/2025 11:01 PM [facility] Urine Urine specimen obtained by clean catch procedure / Unknown Non-blood Collection / Unknown 01/04/2025 10:13 PM EDT 01/04/2025 10:36 PM EDT Narrative [facility] - 01/04/2025 11:01 PM EDT Assay cutoffs: Amphetamines ? 1000 ng/mL Barbiturates ?200 ng/mL Benzodiazepines ?? 200 ng/mL Cocaine ? 300 ng/mL Fentanyl ?1 ng/mL Opiates ? 300 ng/mL Oxycodone ? 100 ng/mL THC ?50 ng/mL Semi-quantitative assay for screening purposes only. Unconfirmed screening result should not be used for non-medical purposes. *ALTERNATE METHOD CONFIRMATION DONE UPON REQUEST ONLY* us Andi LINDO LAB URINE ORDERABLES Final Resul t [facility] [address] [place] [address], [place] [phone] * (ABNORMAL) Respiratory virus panel molecular study (01/04/2025 7:29 PM EDT) Adenovirus Detection by PCR Not Detected Not Detected LAB MICROBIOLOGY METHOD 01/04/2025 9:06 PM EDT [facility] Influenza A PCR Not Detected Not Detected LAB MICROBIOLOGY METHOD 01/04/2025 9:06 PM EDT [facility] Influenza B PCR Not Detected Not Detected LAB MICROBIOLOGY METHOD 01/04/2025 9:06 PM EDT [facility] Coronavirus 229E Not Detected Not Detected LAB MICROBIOLOGY METHOD 01/04/2025 9:06 PM EDT [facility] Coronavirus HKU1 Not Detected Not Detected LAB MICROBIOLOGY METHOD 01/04/2025 9:06 PM EDT [facility] Coronavirus OC43 Not Detected Not Detected LAB MICROBIOLOGY METHOD 01/04/2025 9:06 PM EDT [facility] Coronavirus NL63 Not Detected Not Detected LAB MICROBIOLOGY METHOD 01/04/2025 9:06 PM EDT [facility] Parainfluenza Virus 1 Not Detected Not Detected LAB MICROBIOLOGY METHOD 01/04/2025 9:06 PM EDT [facility] Parainfluenza Virus 2 Not Detected Not Detected LAB MICROBIOLOGY METHOD 01/04/2025 9:06 PM EDT [facility] Parainfluenza Virus 3 Not Detected Not Detected LAB MICROBIOLOGY METHOD 01/04/2025 9:06 PM EDT [facility] Parainfluenza Virus 4 Not Detected Not Detected LAB MICROBIOLOGY METHOD 01/04/2025 9:06 PM EDT [facility] RSV PCR Not Detected Not Detected LAB MICROBIOLOGY METHOD 01/04/2025 9:06 PM EDT [facility] Human Metapneumovirus A and B Not Detected Not Detected LAB MICROBIOLOGY METHOD 01/04/2025 9:06 PM EDT [facility] Rhinovirus/Entero virus Not Detected Not Detected LAB MICROBIOLOGY METHOD 01/04/2025 9:06 PM EDT [facility] Bordetella pertussis Not Detected Not Detected LAB MICROBIOLOGY METHOD 01/04/2025 9:06 PM EDT [facility] Bordetella parapertussis Not Detected Not Detected LAB MICROBIOLOGY METHOD 01/04/2025 9:06 PM EDT [facility] Mycoplasma pneumo by PCR Not Detected Not Detected LAB MICROBIOLOGY METHOD 01/04/2025 9:06 PM EDT [facility] Chlamydia pneumoniae Not Detected Not Detected LAB MICROBIOLOGY METHOD 01/04/2025 9:06 PM EDT [facility] SARS COV-2 Detected(A ) Not Detected LAB MICROBIOLOGY METHOD 01/04/2025 9:06 PM EDT [facility] Swab Both anterior nares / Unknown Non-blood Collection / Unknown 01/04/2025 7:29 PM EDT 01/04/2025 7:52 PM EDT Narrative [facility] - 01/04/2025 9:06 PM EDT Testing was performed using the [employer] Respiratory Pathogen PCR Assay. All results must be correlated with the clinical findings. Results should not be used as the sole basis for diagnosis. False Negative results may occur from the presence of sequence variants in the region targeted by the assay or the presence of inhibitors. Results may be affected by concurrent antiviral/antimicrobial therapy or levels of organisms that are below the limit of detection. Andi LINDO LAB MICROBIOLOGY - GENERAL ORDER WAI Final Result Performing Organization Address [facility]/ZIP Co de Phone Number [facility] [address] [place] [address], * Ethanol (01/04/2025 6:38 PM EDT) Ethanol Level <3 0 - 10 mg/dL LAB CHEMISTRY METHOD 01/04/2025 8:17 PM EDT [facility] Blood Venous blood specimen / Unknown Venipuncture / Unknown 01/04/2025 6:38 PM EDT 01/04/2025 7:01 PM EDT Andi LINDO LAB BLOOD ORDERABLES Final Resul t Performing Organization Address [facility]/ZIP Co de Phone Number [facility] [address] [place] [address], [place] [phone] * Magnesium (01/04/2025 6:38 PM EDT) Magnesium 2.4 1.9 - 2.6 mg/dL LAB CHEMISTRY METHOD 01/04/2025 8:02 PM EDT [facility] Blood Venous blood specimen / Unknown Venipuncture / Unknown 01/04/2025 6:38 PM EDT 01/04/2025 7:01 PM EDT Andi LINDO LAB BLOOD ORDERABLES Final Resul t Performing Organization Address City/[facility]/ZIP Co de Phone Number [facility] [address] [place] [address], * Thyroid Stimulating Hormone (TSH) (01/04/2025 6:38 PM EDT) [facility] TSH 3.74 0.40 - 4.00 mcIU/mL LAB CHEMISTRY METHOD 01/05/2025 12:28 PM EDT [facility] Blood Venous blood specimen / Unknown Venipuncture / Unknown 01/04/2025 6:38 PM EDT 01/04/2025 7:01 PM EDT Andi LINDO LAB BLOOD ORDERABLES Final Resul t Performing Organization Address [facility] Co de Phone Number [facility] [address] [place] [address], [place] [phone] * (ABNORMAL) CBC auto differential (01/04/2025 6:38 PM EDT) [facility] WBC 4.4(L) 4.8 - 10.8 K/mcL LAB HEMETOLOGY METHOD 01/04/2025 7:35 PM EDT [facility] RBC 3.70(L) 4.50 - 5.50 M/mcL LAB HEMETOLOGY METHOD 01/04/2025 7:35 PM EDT [facility] Hemoglobin 12.2(L) 13.5 - 17.5 g/dL LAB HEMETOLOGY METHOD 01/04/2025 7:35 PM EDT [facility] Hematocrit 35.8(L) 42.0 - 54.0 % LAB HEMETOLOGY METHOD 01/04/2025 7:35 PM EDT [facility] MCV 97.5 79.0 - 98.0 FL LAB HEMETOLOGY METHOD 01/04/2025 7:35 PM EDT [facility] MCH 33.2(H) 27.0 - 32.0 pcg LAB HEMETOLOGY [facility]25 [facility] MCHC 34.1 32.0 - 37.0 g/dL LAB HEMETOLOGY METHOD 01/04/2025 7:[facility] RDW 13.6 11.0 - 15.0 % LAB HEMETOLOGY METHOD 01/04/2025 7:35 PM EDT [facility] Platelets 83(L) 130 - 400 K/mcL LAB HEMETOLOGY METHOD 01/04/2025 7:35 PM [facility] Comment:reviewed by slide MPV 12.4(H) 7.0 - 11.0 FL LAB HEMETOLOGY METHOD 01/04/2025 7:35 PM [facility] NRBC 0.0 <1.0 % LAB HEMETOLOGY METHOD 01/04/2025 7:[facility] NRBC Absolute 0.00 <0.10 K/mcL LAB HEMETOLOGY METHOD 01/04/2025 7:35 PM [facility] Neutrophils Relative 62.4 % LAB HEMETOLOGY METHOD 01/04/2025 7:35 PM [facility] Lymphocytes Relative 29.8 % LAB HEMETOLOGY METHOD 01/04/2025 7:35 PM [facility] Monocytes Relative 6.5 % LAB HEMETOLOGY METHOD 01/04/2025 7:35 PM [facility] Eosinophils Relative 0.9 % LAB HEMETOLOGY METHOD 01/04/2025 7:35 PM [facility] Basophils Relative 0.2 % LAB HEMETOLOGY METHOD 01/04/2025 7:35 PM [facility] Immature Granulocytes Relative 0.2 % LAB HEMETOLOGY METHOD 01/04/2025 7:35 [facility] Neutrophils Absolute 2.76 1.50 - 7.00 K/mcL LAB HEMETOLOGY METHOD 01/04/2025 7:35 PM EDT [facility] Lymphocytes Absolute 1.32 1.00 - 5.00 K/mcL LAB HEMETOLOGY METHOD 01/04/2025 7:35 PM EDT [facility] Monocytes Absolute 0.29 0.20 - 1.00 K/mcL LAB HEMETOLOGY METHOD 01/04/2025 7:35 PM EDT [facility] Eosinophils Absolute 0.04 0.00 - 0.50 K/mcL LAB HEMETOLOGY METHOD 01/04/2025 7:35 PM EDT [facility] Basophils Absolute 0.01 0.00 - 0.20 K/mcL LAB HEMETOLOGY METHOD 01/04/2025 7:35 PM EDT [facility] Immature Granulocytes Absolute 0.01 0.00 - 0.03 K/mcL LAB HEMETOLOGY METHOD 01/04/2025 7:35 PM EDT [facility] Blood Venous blood specimen / Unknown Venipuncture / Unknown 01/04/2025 6:38 PM EDT 01/04/2025 7:01 PM EDT Luis Diego MD LAB BLOOD ORDERABLES Final Result [facility] [address] [place] [address], * (ABNORMAL) Comprehensive metabolic panel (01/04/2025 6:38 PM EDT) Sodium 135 133 - 145 mmol/L LAB CHEMISTRY METHOD 01/04/2025 7:41 PM EDT [facility] Potassium 3.4(L) 3.5 - 5.5 mmol/L LAB CHEMISTRY METHOD 01/04/2025 7:41 PM EDT [facility] Chloride 103 96 - 110 mmol/L LAB CHEMISTRY METHOD 01/04/2025 7:41 PM [facility] CO2 20(L) 21 - 32 mmol/L LAB CHEMISTRY METHOD 01/04/2025 7:41 PM [facility] Anion Gap 12(H) 3 - 11 LAB CHEMISTRY METHOD 01/04/2025 7:41 PM [facility] Glucose 81 70 - 100 mg/dL LAB CHEMISTRY METHOD 01/04/2025 7:41 PM [facility] BUN 35(H) 5 - 25 mg/dL LAB CHEMISTRY METHOD 01/04/2025 7:41 PM [facility] Creatinine 0.96 0.70 - 1.30 mg/dL LAB CHEMISTRY METHOD 01/04/2025 7:41 PM [facility] eGFR 77 >=60 mL/min/1. 73m2 LAB CHEMISTRY METHOD 01/04/2025 7:41 PM [facility] Comment:Calculation based on the??Chronic Kidney Disease Epidemiology Collaboration (CKD-EPI) equation refit??without adjustment for race. BUN/Creatinine Ratio 36.5 LAB CHEMISTRY METHOD 01/04/2025 7:41 PM [facility] Calcium 9.1 8.5 - 10.5 mg/dL LAB CHEMISTRY METHOD 01/04/2025 7:41 PM [facility] AST (SGOT) 33 10 - 42 unit/L LAB CHEMISTRY METHOD 01/04/2025 7:41 PM [facility] ALT (SGPT) 26 10 - 60 unit/L LAB CHEMISTRY METHOD 01/04/2025 7:41 PM [facility] Alkaline Phosphatase 78 42 - 121 unit/L LAB CHEMISTRY METHOD 01/04/2025 7:41 PM [facility] Total Protein 7.0 6.0 - 8.0 g/dL LAB CHEMISTRY METHOD 01/04/2025 7:41 PM [facility] Albumin 3.9 3.2 - 5.0 g/dL LAB CHEMISTRY METHOD 01/04/2025 7:41 PM EDT [facility] Total Bilirubin 1.0 0.0 - 1.4 mg/dL LAB CHEMISTRY METHOD 01/04/2025 7:41 PM EDT [facility] Blood Venous blood specimen / Unknown Venipuncture / Unknown 01/04/2025 6:38 PM EDT 01/04/2025 7:01 PM EDT us Luis Diego MD LAB BLOOD ORDERABLES Final Result [facility] [address] [place] [address], documented in this encounter Visit Diagnoses Diagnosis COVID-19- Primary COVID-19 Failure to thrive in adult Adult failure to thrive documented in this encounter Admitting Diagnoses Diagnosis COVID-19 documented in this encounter Administered Medications Inactive Administered Medications - up to 3 most recent administrations Medication Order MAR Action Action Date Dose Rate Site acetaminophen (TYLENOL) tablet 650 mg 650 mg, oral, Every 4 hours PRN, mild pain, headaches, fever - temperature GREATER than 38 C (100.4 F), Starting on Fri01/04/25 at 2238 enoxaparin (LOVENOX) injection 40 mg 40 mg, subcutaneous, Every 24 hours scheduled, First dose on Fri01/05/25 at 0900, Indication: VTE/PE Prophylaxis Given 01/06/2025 9:29 AM EDT 40 mg Left Lower Abdomen Given 01/05/2025 9:52 AM EDT 40 mg Le ft Lower Abdomen lactated Ringer's bolus 500 mL 500 mL, intravenous, at 500 mL/hr, Administer over 1 Hours, Once, On Fri01/05/25 at 0345, For 1 dose New Bag 01/05/2025 3:54 AM EDT 500 mL 500 mL/hr ondansetron (PF) (ZOFRAN) injection 4 mg 4 mg, intravenous, Every 8 hours PRN, vomiting, nausea, Starting on Fri01/04/25 at 2238, -ONLY give IV if patient is unable to take orally. -If inadequate response within 30 minutes, proceed to next-line agent or contact provider if no further options ordered. ondansetron ODT (ZOFRAN-ODT) disintegrating tablet 4 mg 4 mg, oral, Every 8 hours PRN, vomiting, nausea, Starting on Fri01/04/25 at 2238, -Give IV if patient is unable to take orally. -If inadequate response within 30 minutes, proceed to next-line agent or contact provider if no further options ordered. For ODT tablets: -Do not remove from blister pack until just before administering. -Patient should allow tablet to dissolve on tongue. prochlorperazine (COMPAZINE) injection 10 mg 10 mg, intravenous, Every 6 hours PRN, nausea, vomiting, Starting on Fri01/04/25 at 2238, 2nd Line Option: -ONLY give IV if patient is unable to take orally. -Give IM if patient does not have IV Access -If inadequate response within 30 minutes, proceed to next-line agent or contact provider if no further options ordered. prochlorperazine (COMPAZINE) suppository 25 mg 25 mg, rectal, Every 12 hours PRN, nausea, vomiting, Starting on Fri01/04/25 at 2238, 2nd Line Option: -ONLY give VA if patient is unable to take orally and cannot receive IV/IM. -If inadequate response within 30 minutes, proceed to next-line agent or contact provider if no further options ordered. prochlorperazine (COMPAZINE) tablet 10 mg 10 mg, oral, Every 6 hours PRN, nausea, vomiting, Starting on Fri01/04/25 at 2238, 2nd Line Option: -Give IV or IM if patient is unable to take orally. -If inadequate response within 30 minutes, proceed to next-line agent or contact provider if no further options ordered. remdesivir (VEKLURY) 100 mg in sodium chloride 0.9 % 270 mL IVPB 100 mg, intravenous, at 540 mL/hr, Administer over 30 Minutes, Every 24 hours, First dose on [place] 01/06/25 at 1500, For 4 doses, Do not administer the prepared diluted solution simultaneously with any other medication. Flush IV line with 30 mL NS after the infusion is finished. remdesivir (VEKLURY) 200 mg in sodium chloride 0.9 % 250 mL IVPB 200 mg, intravenous, at 500 mL/hr, Administer over 30 Minutes, Once, On Fri01/05/25 at 1500, For 1 dose, Do not administer the prepared diluted solution simultaneously with any other medication. Flush IV line with 30 mL NS after the infusion is finished. New Bag 01/05/2025 4:42 PM EDT 200 mg 500 mL/hr sodium chloride 0.9 % flush 10 mL 10 mL, intravenous, 2 times daily, First dose on Fri01/04/25 at 2243 Given 01/06/2025 9:29 AM EDT 10 mL Given 01/05/2025 9:52 AM EDT 10 mL Given 01/04/2025 10:57 PM EDT 10 mL sodium chloride 0.9 % flush 10 mL 10 mL, intravenous, As needed, line care, Starting on Fri01/04/25 at 2238 sodium chloride 0.9 % flush bag 30 mL 30 mL, intravenous, Once, On Fri01/05/25 at 1315, For 1 dose, -Flush tubing used to administer remdesivir (VEKLURY) -Infuse at the same rate as remdesivir (VEKLURY) after remdesivir (VEKLURY) is infused to ensure complete dose is delivered New Bag 01/05/2025 4:42 PM EDT 30 mL sodium chloride 0.9 % flush bag 30 mL 30 mL, intravenous, Every 24 hours, First dose on Fri01/05/25 at 1530, For 4 doses, -Flush tubing used to administer remdesivir (VEKLURY) -Infuse at the same rate as remdesivir (VEKLURY) after remdesivir (VEKLURY) is infused to ensure complete dose is delivered documented in this encounter Historical Medications * This list may reflect changes made after this encounter. bicalutamide (CASODEX) 50 mg tablet Take 1 tablet (50 mg total) by mouth 1 (one) time each day 10/20/2024 added in this encounter Active and Recently Administered Medications Times are shown in EDT. Scheduled Medication Order 01/04/2025 01/05/2025 01/06/2025 enoxaparin (LOVENOX) injection 40 mg 40 mg, subcutaneous, Every 24 hours scheduled, First dose on Fri01/05/25 at 0900, Indication: VTE/PE Prophylaxis 0952 (Given - Provider: Keli Torres RN) 0929 (Given - Provider: Rosa Yee, MANUEL) lactated Ringer's bolus 500 mL (COMPLETED) 500 mL, intravenous, at 500 mL/hr, Administer over 1 Hours, Once, On Fri01/05/25 at 0345, For 1 dose 0354 (New Bag - Provider: Indira Swartz, MANUEL)0607 (Stopped - Provider: Indira Swartz, MANUEL - Comment: ran at 300ml/hr to preserve IV) remdesivir (VEKLURY) 100 mg in sodium chloride 0.9 % 270 mL IVPB(Linked Group 1) 100 mg, intravenous, at 540 mL/hr, Administer over 30 Minutes, Every 24 hours, First dose on Fri01/06/25 at 1500, For 4 doses, Do not administer the prepared diluted solution simultaneously with any other medication. Flush IV line with 30 mL NS after the infusion is finished. remdesivir (VEKLURY) 200 mg in sodium chloride 0.9 % 250 mL IVPB (COMPLETED)(Linked Group 2) 200 mg, intravenous, at 500 mL/hr, Administer over 30 Minutes, Once, On Fri01/05/25 at 1500, For 1 dose, Do not administer the prepared diluted solution simultaneously with any other medication. Flush IV line with 30 mL NS after the infusion is finished. 1642 (New Bag - Provider: Keli Torres RN)1744 (Stopped - Provider: Keli Torres RN) sodium chloride 0.9 % flush 10 mL(Linked Group 3) 10 mL, intravenous, 2 times daily, First dose on Fri01/04/25 at 2243 2257 (Given - Provider: Kana Donnelly RN) 0952 (Given - Provider: Keli Torres RN)2242 (Not Given - Provider: Indira Swartz RN - Reason: Other - Comment: IVF infusing) 09 (Given - Provider: Rosa Yee, MANUEL) sodium chloride 0.9 % flush bag 30 mL (COMPLETED)(Linked Group 2) 30 mL, intravenous, Once, On Fri01/05/25 at 1315, For 1 dose, -Flush tubing used to administer remdesivir (VEKLURY) -Infuse at the same rate as remdesivir (VEKLURY) after remdesivir (VEKLURY) is infused to ensure complete dose is delivered 1642 (New Bag - Provider: Keli Torres RN) sodium chloride 0.9 % flush bag 30 mL(Linked Group 1) 30 mL, intravenous, Every 24 hours, First dose on Fri01/05/25 at 1530, For 4 doses, -Flush tubing used to administer remdesivir (VEKLURY) -Infuse at the same rate as remdesivir (VEKLURY) after remdesivir (VEKLURY) is infused to ensure complete dose is delivered 1639 (Not Given - Provider: Keli Torres RN - Reason: Other) PRN Medication Order 01/04/2025 01/05/2025 01/06/2025 acetaminophen (TYLENOL) tablet 650 mg 650 mg, oral, Every 4 hours PRN, mild pain, headaches, fever - temperature GREATER than 38 C (100.4 F), Starting on Fri01/04/25 at 2238 ondansetron (PF) (ZOFRAN) injection 4 mg(Linked Group 4) 4 mg, intravenous, Every 8 hours PRN, vomiting, nausea, Starting on Fri01/04/25 at 2238, -ONLY give IV if patient is unable to take orally. -If inadequate response within 30 minutes, proceed to next-line agent or contact provider if no further options ordered. ondansetron ODT (ZOFRAN-ODT) disintegrating tablet 4 mg(Linked Group 4) 4 mg, oral, Every 8 hours PRN, vomiting, nausea, Starting on Fri01/04/25 at 2238, -Give IV if patient is unable to take orally. -If inadequate response within 30 minutes, proceed to next-line agent or contact provider if no further options ordered. For ODT tablets: -Do not remove from blister pack until just before administering. -Patient should allow tablet to dissolve on tongue. prochlorperazine (COMPAZINE) injection 10 mg(Linked Group 5) 10 mg, intravenous, Every 6 hours PRN, nausea, vomiting, Starting on Fri01/04/25 at 2238, 2nd Line Option: -ONLY give IV if patient is unable to take orally. -Give IM if patient does not have IV Access -If inadequate response within 30 minutes, proceed to next-line agent or contact provider if no further options ordered. prochlorperazine (COMPAZINE) suppository 25 mg(Linked Group 5) 25 mg, rectal, Every 12 hours PRN, nausea, vomiting, Starting on Fri01/04/25 at 2238, 2nd Line Option: -ONLY give VA if patient is unable to take orally and cannot receive IV/IM. -If inadequate response within 30 minutes, proceed to next-line agent or contact provider if no further options ordered. prochlorperazine (COMPAZINE) tablet 10 mg(Linked Group 5) 10 mg, oral, Every 6 hours PRN, nausea, vomiting, Starting on Fri01/04/25 at 2238, 2nd Line Option: -Give IV or IM if patient is unable to take orally. -If inadequate response within 30 minutes, proceed to next-line agent or contact provider if no further options ordered. sodium chloride 0.9 % flush 10 mL(Linked Group 3) 10 mL, intravenous, As needed, line care, Starting on Fri01/04/25 at 2238 Linked Groups Order Group 1: remdesivir (VEKLURY) 100 mg in sodium chloride 0.9 % 270 mL IVPBJump to med 100 mg, intravenous, at 540 mL/hr, Administer over 30 Minutes, Every 24 hours, First dose on Fri01/06/25 at 1500, For 4 doses, Do not administer the prepared diluted solution simultaneously with any other medication. Flush IV line with 30 mL NS after the infusion is finished. And sodium chloride 0.9 % flush bag 30 mLJump to med 30 mL, intravenous, Every 24 hours, First dose on Fri01/05/25 at 1530, For 4 doses, -Flush tubing used to administer remdesivir (VEKLURY) -Infuse at the same rate as remdesivir (VEKLURY) after remdesivir (VEKLURY) is infused to ensure complete dose is delivered Group 2: remdesivir (VEKLURY) 200 mg in sodium chloride 0.9 % 250 mL IVPB (COMPLETED)Jump to med 200 mg, intravenous, at 500 mL/hr, Administer over 30 Minutes, Once, On Fri01/05/25 at 1500, For 1 dose, Do not administer the prepared diluted solution simultaneously with any other medication. Flush IV line with 30 mL NS after the infusion is finished. And sodium chloride 0.9 % flush bag 30 mL (COMPLETED)Jump to med 30 mL, intravenous, Once, On Fri01/05/25 at 1315, For 1 dose, -Flush tubing used to administer remdesivir (VEKLURY) -Infuse at the same rate as remdesivir (VEKLURY) after remdesivir (VEKLURY) is infused to ensure complete dose is delivered Group 3: Insert peripheral IV (CANCELED) STAT, Once, On Fri01/04/25 at 2239, For 1 occurrence And Maintain IV access (CANCELED) Until discontinued, Starting on Fri01/04/25 at 2239, Until Specified And Saline lock IV (CANCELED) Routine, Once, On Fri01/04/25 at 223, For 1 occurrence And sodium chloride 0.9 % flush 10 mLJump to med 10 mL, intravenous, 2 times daily, First dose on Fri01/04/25 at 2243 And sodium chloride 0.9 % flush 10 mLJump to med 10 mL, intravenous, As needed, line care, Starting on Fri01/04/25 at 2238 Group 4: ondansetron ODT (ZOFRAN-ODT) disintegrating tablet 4 mgJump to med 4 mg, oral, Every 8 hours PRN, vomiting, nausea, Starting on Fri01/04/25 at 2238, -Give IV if patient is unable to take orally. -If inadequate response within 30 minutes, proceed to next-line agent or contact provider if no further options ordered. For ODT tablets: -Do not remove from blister pack until just before administering. -Patient should allow tablet to dissolve on tongue. Or ondansetron (PF) (ZOFRAN) injection 4 mgJump to med 4 mg, intravenous, Every 8 hours PRN, vomiting, nausea, Starting on Fri01/04/25 at 2238, -ONLY give IV if patient is unable to take orally. -If inadequate response within 30 minutes, proceed to next-line agent or contact provider if no further options ordered. Group 5: prochlorperazine (COMPAZINE) tablet 10 mgJump to med 10 mg, oral, Every 6 hours PRN, nausea, vomiting, Starting on Fri01/04/25 at 2238, 2nd Line Option: -Give IV or IM if patient is unable to take orally. -If inadequate response within 30 minutes, proceed to next-line agent or contact provider if no further options ordered. Or prochlorperazine (COMPAZINE) injection 10 mgJump to med 10 mg, intravenous, Every 6 hours PRN, nausea, vomiting, Starting on Fri01/04/25 at 2238, 2nd Line Option: -ONLY give IV if patient is unable to take orally. -Give IM if patient does not have IV Access -If inadequate response within 30 minutes, proceed to next-line agent or contact provider if no further options ordered. Or prochlorperazine (COMPAZINE) suppository 25 mgJump to med 25 mg, rectal, Every 12 hours PRN, nausea, vomiting, Starting on Fri01/04/25 at 2238, 2nd Line Option: -ONLY give VA if patient is unable to take orally and cannot receive IV/IM. -If inadequate response within 30 minutes, proceed to next-line agent or contact provider if no further options ordered. documented in this encounter Orders Medications Ordered That Solis ht Not Have Been Administered Count Last Ordered Date First Ordered Date remdesivir (VEKLURY) 100 mg in sodium chloride 0.9 % 270 mL IVPB 01/05/2025 sodium chloride 0.9 % flush bag 30 mL acetaminophen (TYLENOL) tablet 650 mg 1 ondansetron (PF) (ZOFRAN) injection 4 mg 01/04/2025 ondansetron ODT (ZOFRAN-ODT) disintegrating tablet 4 mg 1 01/04/2025 prochlorperazine (COMPAZINE) injection 10 mg 01/04/2025 prochlorperazine (COMPAZINE) suppository 25 mg 01/04/2025 prochlorperazine (COMPAZINE) tablet 10 mg 01/04/2025 sodium chloride 0.9 % flush 10 mL 1 025 Consult Count Last Ordered Date First Orde red Date IP CONSULT TO SOCIAL WORK 1 01/04/2025 Admission Count Last Ordered Date First Orde red Date INITIATE OBSERVATION STATUS 01/04/2025 Transfer Count Last Ordered Date First Orde red Date ED TO FLOOR BED REQUEST 1 01/04/2025 Discharge Count Last Ordered Date First Orde red Date DISCHARGE PATIENT 1 01/06/2025 documented in this encounter Additional Health Concerns Infection Onset Date Last Indicated Resolved Time Respiratory Rule-Out 01/04/2025 01/04/2025 025 9:06 PM EDT COVID-19 Rule-Out 01/04/2025 01/04/2025 01/04/2025 9:06 PM EDT COVID-19 01/04/2025 01/04/2025 documented as of this encounter Care Teams Help Desk Support Relationship Specialty Start Date End Date Flavio Cortes PA [address] [place] [id number] PCP - General 09/29/23 documented as of this encounter
--- OUTSIDE RECORDS SUMMARY | 2025-01-10 10:00 | XMS_ITS | Clinical Summary ---
Author Organization [facility] Address [address] [place] [address] Phone Care Team Providers Care Applications Development Analyst Name Role Phone Flavio Cortes Primary Care Provider [phone] Allergies Active Allergy Reactions Criticality Noted Date Comments Aspirin Other,Palpitations 10/01/2018 headache Medications bicalutamide (CASODEX) 50 mg tablet Take 1 tablet (50 mg total) by mouth 1 (one) time each day 10/20/2024 Active Active Problems Problem Noted Date Diagnosed Date COVID-19 01/04/2025 Encounters Date Type Department Care Team Description 01/04/2025 6:12 PM EDT - 01/06/2025 12:00 PM EDT Hospital Encounter [facility] [address] [place] [phone] Luis Diego MD Kela, Kashyap Devendrabhai, MD COVID-19 (Primary Dx); Failure to thrive in adult Discharge Disposition: Home-Health Care Svc 12/31/2024 11:26 PM EDT - 01/01/2025 3:33 PM EDT Emergency [facility] Emergency [address] [place] [phone] Jose Yip MD Montano, Gary L, MD Dizziness (Primary Dx) Discharge Disposition: Home or Self Care 10/23/2024 12:30 AM EST - 10/23/2024 4:31 PM EST Emergency [facility] Emergency [address] [place] [phone] Marilu Parsons MD Vatrenko, Konstantin, MD Orthostatic hypotension (Primary Dx) Discharge Disposition: Home or Self Care from Last 3 Months Surgical History Surgery Date Site/Laterality Comments OTHER SURGICAL HISTORY PROCEDURE: COLONOSCOPY, SURGICAL ESOPHAGOGASTRODUODENOSCOPY PROCEDURE: WA ESOPHAGOGASTRODUODENOSCOPY TRANSORAL DIAGNOSTIC Medical History Medical History Date Comments History of prostate cancer 2018 DX:Hi story of prostate cancer GERD (gastroesophageal reflux disease) DX:GERD (gastroesophageal reflux disease) Pulmonary nodule 09/29/2023 DX:Pulmonary no dule Oropharyngeal dysphagia 09/29/2023 DX:Oroph aryngeal dysphagia Family History Medical History Relation Name Comments Other cancer Brother 1 Other cancer Brother 2 Other cancer Brother 3 Other cancer Sister 1 Other cancer Sister 2 Other cancer Sister 3 Relation Name Status Comments Brother 1 Brother 2 Brother 3 Sister 1 Sister 2 Sister 3 Social History Tobacco Use Types Packs/Day Years [...] on file Sexual Orientation Not on file Obstetrics History Last Filed Vital Signs Vital Sign Reading [...] Mass Index 22.79 01/04/2025 3:43 PM EDT Plan of Treatment Health Maintenance Due Date Last Done Comments COVID-19 Vaccine (#1) 1940 DTaP,Tdap,and Td Vaccines (1 - Tdap) 02[birth year]14/1954 Pneumococcal Vaccine: 50+ Ye ars (1 of 2 - PCV) 02/14/1954 Zoster Vaccines (1 of 2) 02/14/1954 RSV Immunization Adult Patie nts (1 - 1-dose 75+ series) 02/14/2012 Depression Screening 08/21/2022 Medicare Annual Wellness Visit 08/21/2022 Social Influencers of Health Screening 08/21/2022 Cholesterol Screening (Lipid Panel) 10/01/2023 10/01/2018 Influenza Vaccine (Season Ended) 2025 10/01/19 19 Falls Risk Assessment 01/06/2026 01/06/2025 HIB Vaccines Aged Out No longer eligi ble based on patient's age to complete this topic HPV Vaccines Aged Out No longer eligi ble based on patient's age to complete this topic Hepatitis A Vaccines Aged Out No long er eligible based on patient's age to complete this topic Hepatitis B Vaccines Aged Out No long er eligible based on patient's age to complete this topic IPV Vaccines Aged Out No longer eligi ble based on patient's age to complete this topic MMR Vaccines Aged Out No longer eligi ble based on patient's age to complete this topic Meningococcal ACWY Vaccine Aged Out N o longer eligible based on patient's age to complete this topic Meningococcal B Vaccine Aged Out No l onger eligible based on patient's age to complete this topic RSV Immunization Patients Un stephenie 20 months Aged Out No longer eligible b ased on patient's age to complete this topic Varicella Vaccines Aged Out No longer eligible based on patient's age to complete this topic Procedures Procedure Name Priority Date/Time Associated Diagnosis Comments CBC WITH AUTO DIFFERENTIAL Routine 01/05/2025 6:54 AM EDT CBC AND DIFFERENTIAL Routine 01/05/2025 6:54 AM EDT BASIC METABOLIC PANEL Routine 01/05/2025 6:54 AM EDT SONG URINE CULTURE TUBE STAT 01/04/2025 10:13 PM EDT URINALYSIS WITH REFLEX MICROSCOPIC AND CULTURE STAT 01/04/2025 10:13 PM EDT DRUG ABUSE SCREEN 8A PANEL, URINE STAT 01/04/2025 10:13 PM EDT URINALYSIS WITH REFLEX MICROSCOPIC AND CULTURE STAT 01/04/2025 10:13 PM EDT RESPIRATORY VIRUS PANEL MOLECULAR STUDY STAT 01/04/2025 7:29 PM EDT ETHANOL STAT Add-on 01/04/2025 6:38 PM EDT MAGNESIUM STAT Add-on 01/04/2025 6:38 PM EDT THYROID STIMULATING HORMONE STAT Add-on 01/04/2025 6:38 PM EDT CBC WITH AUTO DIFFERENTIAL STAT 01/04/2025 6:38 PM EDT COMPREHENSIVE METABOLIC PANEL STAT 01/04/2025 6:38 PM EDT CBC AND DIFFERENTIAL STAT 01/04/2025 6:38 PM EDT ECG ANNOTATED 01/03/2025 CT HEAD WO CONTRAST STAT 01/01/2025 1 2:42 AM EDT XR CHEST 2 VIEWS STAT 01/01/2025 12:3 9 AM EDT SONG URINE CULTURE TUBE STAT 01/01/2025 12:19 AM EDT URINALYSIS WITH REFLEX MICROSCOPIC AND CULTURE STAT 01/01/2025 12:19 AM EDT URINALYSIS WITH REFLEX MICROSCOPIC AND CULTURE STAT 01/01/2025 12:19 AM EDT TROPONIN I HIGH SENSITIVITY STAT 01/01/2025 12:03 AM EDT HEPATIC FUNCTION PANEL STAT Add-on 12/31/2024 10:23 PM EDT CBC WITH AUTO DIFFERENTIAL STAT 12/31/2024 10:23 PM EDT TROPONIN I HIGH SENSITIVITY STAT 12/31/2024 10:23 PM EDT MAGNESIUM STAT 12/31/2024 10:23 PM EDT BASIC METABOLIC PANEL STAT 12/31/2024 10:23 PM EDT CBC AND DIFFERENTIAL STAT 12/31/2024 10:23 PM EDT ECG 12-LEAD STAT 12/31/2024 10:14 PM EDT XR LUMBAR SPINE 2-3 VIEWS STAT 10/23/2024 9:13 AM EST RESPIRATORY VIRUS PANEL MOLECULAR STUDY STAT 10/23/2024 7:48 AM EST TROPONIN I HIGH SENSITIVITY STAT 10/23/2024 2:19 AM EST XR CHEST 2 VIEWS STAT 10/23/2024 1:25 AM EST ECG 12-LEAD STAT 10/23/2024 1:18 AM EST CBC WITH AUTO DIFFERENTIAL STAT 10/23/2024 1:04 AM EST B-TYPE NATRIURETIC PEPTIDE STAT 10/23/2024 1:04 AM EST MAGNESIUM STAT 10/23/2024 1:04 AM EST LIPASE STAT 10/23/2024 1:04 AM EST COMPREHENSIVE METABOLIC PANEL STAT 10/23/2024 1:04 AM EST CBC AND DIFFERENTIAL STAT 10/23/2024 1:04 AM EST TROPONIN I HIGH SENSITIVITY STAT 10/23/2024 1:04 AM EST ECG ANNOTATED 10/23/2024 ECG OUTSIDE 10/23/2024 from Last 3 Months Results * (ABNORMAL) CBC auto differential (01/05/2025 6:54 AM EDT) Only the most recent of4 resultswithin the time period is included. WBC 3.6(L) 4.8 - 10.8 K/mcL LAB HEMETOLOGY METHOD 01/05/2025 8:21 AM [facility] RBC 3.40(L) 4.50 - 5.50 M/mcL LAB HEMETOLOGY METHOD 01/05/2025 8:21 AM [facility] Hemoglobin 11.5(L) 13.5 - 17.5 g/dL LAB HEMETOLOGY METHOD 01/05/2025 8:21 AM [facility] Hematocrit 33.6(L) 42.0 - 54.0 % LAB HEMETOLOGY METHOD 01/05/2025 8:21 AM [facility] MCV 99.4(H) 79.0 - 98.0 FL LAB HEMETOLOGY METHOD 01/05/2025 8:21 AM [facility] MCH 34.0(H) 27.0 - 32.0 pcg LAB HEMETOLOGY METHOD 01/05/2025 8:21 AM [facility] MCHC 34.2 32.0 - 37.0 g/dL LAB HEMETOLOGY METHOD 01/05/2025 8:21 AM [facility] RDW 13.5 11.0 - 15.0 % LAB HEMETOLOGY METHOD 01/05/2025 8:21 AM [facility] Platelets 63(L) 130 - 400 K/mcL LAB HEMETOLOGY METHOD 01/05/2025 8:21 AM [facility] Comment:reviewed by slide ALESSANDRO LAB HEMETOLOGY METHOD 01/05/2025 8:21 AM [facility] Comment:Not Measured NRBC 0.0 <1.0 % LAB HEMETOLOGY METHOD 01/05/2025 8:21 AM [facility] NRBC Absolute 0.00 <0.10 K/mcL LAB HEMETOLOGY METHOD 01/05/2025 8:21 AM [facility] Neutrophils Relative 43.0 % LAB HEMETOLOGY METHOD 01/05/2025 8:21 AM [facility] Lymphocytes Relative 46.9 % LAB HEMETOLOGY METHOD 01/05/2025 8:21 AM [facility] Monocytes Relative 6.7 % LAB HEMETOLOGY METHOD 01/05/2025 8:21 AM [facility] Eosinophils Relative 2.8 % LAB HEMETOLOGY METHOD 01/05/2025 8:21 AM [facility] Basophils Relative 0.3 % LAB HEMETOLOGY METHOD 01/05/2025 8:21 AM [facility] Immature Granulocytes Relative 0.3 % LAB HEMETOLOGY METHOD 01/05/2025 8:21 AM [facility] Neutrophils Absolute 1.53 1.50 - 7.00 K/mcL LAB HEMETOLOGY METHOD 01/05/2025 8:21 AM [facility] Lymphocytes Absolute 1.67 1.00 - 5.00 K/mcL LAB HEMETOLOGY METHOD 01/05/2025 8:21 AM [facility] Monocytes Absolute 0.24 0.20 - 1.00 K/mcL LAB HEMETOLOGY METHOD 01/05/2025 8:21 AM [facility] Eosinophils Absolute 0.10 0.00 - 0.50 K/mcL LAB HEMETOLOGY METHOD 01/05/2025 8:21 AM [facility] Basophils Absolute 0.01 0.00 - 0.20 K/mcL LAB HEMETOLOGY METHOD 01/05/2025 8:21 AM [facility] Immature Granulocytes Absolute 0.01 0.00 - 0.03 K/mcL LAB HEMETOLOGY METHOD 01/05/2025 8:21 AM T [facility] Blood Venous blood specimen / Unknown Venipuncture / Unknown 01/05/2025 6:54 AM EDT 01/05/2025 7:21 AM EDT us Luis Diego MD LAB BLOOD ORDERABLES Final Result [facility] [address] [place] [address], [place] [phone] * (ABNORMAL) Basic metabolic panel (01/05/2025 6:54 AM EDT) Only the most recent of2 resultswithin the time period is included. Sodium 140 133 - 145 mmol/L LAB CHEMISTRY METHOD 01/05/2025 8:13 AM [facility] Potassium 3.6 3.5 - 5.5 mmol/L LAB CHEMISTRY METHOD 01/05/2025 8:13 AM [facility] Chloride 104 96 - 110 mmol/L LAB CHEMISTRY METHOD 01/05/2025 8:13 AM [facility] CO2 25 21 - 32 mmol/L LAB CHEMISTRY METHOD 01/05/2025 8:13 AM [facility] Anion Gap 11 3 - 11 LAB CHEMISTRY METHOD 01/05/2025 8:13 AM [facility] Glucose 68(L) 70 - 100 mg/dL LAB CHEMISTRY METHOD 01/05/2025 8:13 AM [facility] BUN 28(H) 5 - 25 mg/dL LAB CHEMISTRY METHOD 01/05/2025 8:13 AM [facility] Creatinine 0.82 0.70 - 1.30 mg/dL LAB CHEMISTRY METHOD 01/05/2025 8:13 AM [facility] eGFR 85 >=60 mL/min/1. 73m2 LAB CHEMISTRY METHOD 01/05/2025 8:13 AM EDT [facility] Comment:Calculation based on the??Chronic Kidney Disease Epidemiology Collaboration (CKD-EPI) equation refit??without adjustment for race. BUN/Creatinine Ratio 34.1 LAB CHEMISTRY METHOD 01/05/2025 8:13 AM EDT [facility] Calcium 9.1 8.5 - 10.5 mg/dL LAB CHEMISTRY METHOD 01/05/2025 8:13 AM EDT [facility] Blood Venous blood specimen / Unknown Venipuncture / Unknown 01/05/2025 6:54 AM EDT 01/05/2025 7:23 AM EDT us Luis Diego MD LAB BLOOD ORDERABLES Final Result [facility] [address] [place] [address], * (ABNORMAL) Urinalysis with reflex microscopic and culture (01/04/2025 10:13 PM EDT) Only the most recent of2 resultswithin the time period is included. Specific [place] Urine 1.031(H) 1.003 - 1.030 LAB URINALYSIS - AUTOMATED METHOD 01/04/2025 10:45 PM [facility] pH, Urine 5.5 5.0 - 8.0 pH LAB URINALYSIS - AUTOMATED METHOD 01/04/2025 10:45 PM T [facility] Leukocytes, Urine Negative Negative LAB URINALYSIS - AUTOMATED METHOD 01/04/2025 10:45 PM T [facility] Nitrite, Urine Negative Negative LAB URINALYSIS - AUTOMATED METHOD 01/04/2025 10:45 PM [facility] Protein, Urine 30(A) <=Trace mg/dL LAB URINALYSIS - AUTOMATED METHOD 01/04/2025 10:45 PM EDT [facility] Glucose, Urine Negative Negative mg/dL LAB URINALYSIS - AUTOMATED METHOD 01/04/2025 10:45 PM [facility] Ketones, Urine >=80(A) Negative mg/dL LAB URINALYSIS - AUTOMATED METHOD 01/04/2025 10:45 PM [facility] Urobilinogen, Urine 1.0 0.2 - 1.0 mg/dL LAB URINALYSIS - AUTOMATED METHOD 01/04/2025 10:45 PM [facility] Bilirubin, Urine Small(A) Negative LAB URINALYSIS - AUTOMATED METHOD 01/04/2025 10:45 PM [facility] Blood, Urine Negative Negative LAB URINALYSIS - AUTOMATED METHOD 01/04/2025 10:45 PM [facility] RBC, Urine 4.4(H) 0 - 4 /HPF LAB URINALYSIS - AUTOMATED METHOD 01/04/2025 10:45 PM [facility] WBC, Urine 2.9 0 - 4 /HPF LAB URINALYSIS - AUTOMATED METHOD 01/04/2025 10:45 PM [facility] Squamous Epithelial, Urine 33 0 - 60 /LPF LAB URINALYSIS - AUTOMATED METHOD 01/04/2025 10:45 PM [facility] Bacteria, Urine Negative Negative /HPF LAB URINALYSIS - AUTOMATED METHOD 01/04/2025 10:45 PM [facility] Hyaline Casts, Urine 5.2(H) 0 - 3 /LPF LAB URINALYSIS - AUTOMATED METHOD 01/04/2025 10:45 PM [facility] Urine Urine specimen obtained by clean catch procedure / Unknown Non-blood Collection / Unknown 01/04/2025 10:13 PM EDT 01/04/2025 10:37 PM EDT us Andi LINDO LAB URINE ORDERABLES Final Resul t [facility] [address] [place] [address], [place] [phone] * Song urine culture tube (01/04/2025 10:13 PM EDT) Only the most recent of2 resultswithin the time period is included. Extra Tube Hold for add-ons. 01/05/2025 12:05 AM EDT [facility] Comment:Auto resulted. Urine Urine specimen obtained by clean catch procedure / Unknown Non-blood Collection / Unknown 01/04/2025 10:13 PM EDT 01/04/2025 10:36 PM EDT Andi LINDO LAB URINE ORDERABLES Final Resul t Performing Organization Address [facility] de Phone Number [facility] [address] [place] [address], [place] [phone] * Drug abuse screen 8a panel, urine (01/04/2025 10:13 PM EDT) Amphetamine Screen, Ur Negative Negative LAB CHEMISTRY METHOD 01/04/2025 11:01 PM EDT [facility] Comment:Certain OTC medicati ons containing ephedrine, phenylephrine, pseudoephedrine and phenylpropanolamine can cause false positive results. Barbiturate Screen, Ur Negative Negative LAB CHEMISTRY METHOD 01/04/2025 11:01 PM EDT [facility] Benzodiazepine Screen, Ur Negative Negative LAB CHEMISTRY METHOD 01/04/2025 11:01 PM EDT [facility] Cocaine Screen, Ur Negative Negative LAB CHEMISTRY METHOD 01/04/2025 11:01 PM EDT [facility] Opiate Screen, Ur Negative Negative LAB CHEMISTRY METHOD 01/04/2025 11:01 PM [facility] Cannabinoid (THC) Screen, Ur Negative Negative LAB CHEMISTRY METHOD 01/04/2025 11:01 PM EDT [facility] Comment:Specimens from patie nts taking pantoprazole sodium (Protonix) have been shown to produce false positive results. Oxycodone Screen, Ur Negative Negative LAB CHEMISTRY METHOD 01/04/2025 11:01 PM EDT [facility] Fentanyl, Ur Negative Negative LAB CHEMISTRY METHOD 01/04/2025 11:01 PM EDT [facility] Urine Urine specimen obtained by clean catch procedure / Unknown Non-blood Collection / Unknown 01/04/2025 10:13 PM EDT 01/04/2025 10:36 PM EDT Narrative [facility] - 01/04/2025 11:01 PM EDT Assay cutoffs: Amphetamines ? 1000 ng/mL Barbiturates ?200 ng/mL Benzodiazepines ?? 200 ng/mL Cocaine ? 300 ng/mL Fentanyl ?1 ng/mL Opiates ? 300 ng/mL Oxycodone ? 100 ng/mL THC ?50 ng/mL Semi-quantitative assay for screening purposes only. Unconfirmed screening result should not be used for non-medical purposes. *ALTERNATE METHOD CONFIRMATION DONE UPON REQUEST ONLY* Andi LINDO LAB URINE ORDERABLES Final Resul t [facility] [address] [place] [address], * (ABNORMAL) Respiratory virus panel molecular study (01/04/2025 7:29 PM EDT) Only the most recent of2 resultswithin the time period is included. Adenovirus Detection by PCR Not Detected Not Detected LAB MICROBIOLOGY METHOD 01/04/2025 9:06 PM EDT [facility] Influenza A PCR Not Detected Not Detected LAB MICROBIOLOGY METHOD 01/04/2025 9:06 PM EDT [facility] Influenza B PCR Not Detected Not Detected LAB MICROBIOLOGY METHOD 01/04/2025 9:06 PM EDT [facility] Coronavirus 229E Not Detected Not Detected LAB MICROBIOLOGY METHOD 01/04/2025 9:06 PM EDT [facility] Coronavirus HKU1 Not Detected Not Detected LAB MICROBIOLOGY METHOD 01/04/2025 9:06 PM EDT [facility] Coronavirus OC43 Not Detected Not Detected LAB MICROBIOLOGY METHOD 01/04/2025 9:06 PM EDT [facility] Coronavirus NL63 Not Detected Not Detected LAB MICROBIOLOGY METHOD 01/04/2025 9:06 PM EDT [facility] Parainfluenza Virus 1 Not Detected Not Detected LAB MICROBIOLOGY METHOD 01/04/2025 9:06 PM EDT [facility] Parainfluenza Virus 2 Not Detected Not Detected LAB MICROBIOLOGY METHOD 01/04/2025 9:06 PM EDT [facility] Parainfluenza Virus 3 Not Detected Not Detected LAB MICROBIOLOGY METHOD 01/04/2025 9:06 PM EDT [facility] Parainfluenza Virus 4 Not Detected Not Detected LAB MICROBIOLOGY METHOD 01/04/2025 9:06 PM EDT [facility] RSV PCR Not Detected Not Detected LAB MICROBIOLOGY METHOD 01/04/2025 9:06 PM EDT [facility] Human Metapneumovirus A and B Not Detected Not Detected LAB MICROBIOLOGY METHOD 01/04/2025 9:06 PM EDT [facility] Rhinovirus/Entero virus Not Detected Not Detected LAB MICROBIOLOGY METHOD 01/04/2025 9:06 PM EDT [facility] Bordetella pertussis Not Detected Not Detected LAB MICROBIOLOGY METHOD 01/04/2025 9:06 PM EDT [facility] Bordetella parapertussis Not Detected Not Detected LAB MICROBIOLOGY METHOD 01/04/2025 9:06 PM EDT [facility] Mycoplasma pneumo by PCR Not Detected Not Detected LAB MICROBIOLOGY METHOD 01/04/2025 9:06 PM EDT [facility] Chlamydia pneumoniae Not Detected Not Detected LAB MICROBIOLOGY METHOD 01/04/2025 9:06 PM EDT [facility] SARS COV-2 Detected(A ) Not Detected LAB MICROBIOLOGY METHOD 01/04/2025 9:06 PM EDT [facility] Swab Both anterior nares / Unknown Non-blood Collection / Unknown 01/04/2025 7:29 PM EDT 01/04/2025 7:52 PM EDT Narrative [facility] - 01/04/2025 9:06 PM EDT Testing was performed using the Sqwiggle Respiratory Pathogen PCR Assay. All results must [...] ORDER WAI Final Result Performing Organization Address City/[facility]/ZIP Co de Phone Number [facility] [address] [place] [address], [place] [phone] * Thyroid Stimulating Hormone (TSH) (01/04/2025 6:38 PM EDT) TSH 3.74 0.40 - 4.00 mcIU/mL LAB CHEMISTRY METHOD 01/05/2025 12:28 PM EDT [facility] Blood Venous blood specimen / Unknown Venipuncture / Unknown 01/04/2025 6:38 PM EDT 01/04/2025 7:01 PM EDT us Andi LINDO LAB BLOOD ORDERABLES Final Resul t Performing Organization Address City/[facility]/ZIP Co de Phone Number [facility] [address] [place] [address], [place] [phone] * Magnesium (01/04/2025 6:38 PM EDT) Only the most recent of3 resultswithin the time period is included. Magnesium 2.4 1.9 - 2.6 mg/dL LAB CHEMISTRY METHOD 01/04/2025 8:02 PM EDT [facility] Blood Venous blood specimen / Unknown Venipuncture / Unknown 01/04/2025 6:38 PM EDT 01/04/2025 7:01 PM EDT us Andi LINDO LAB BLOOD ORDERABLES Final Resul t Performing Organization Address [facility]/ZIP Co de Phone Number [facility] [address] [place] [address], [place] [phone] * Ethanol (01/04/2025 6:38 PM EDT) [facility] Ethanol Level <3 0 - 10 mg/dL LAB CHEMISTRY METHOD 01/04/2025 8:17 PM EDT [facility] Blood Venous blood specimen / Unknown Venipuncture / Unknown 01/04/2025 6:38 PM EDT 01/04/2025 7:01 PM EDT us Andi LINDO LAB BLOOD ORDERABLES Final Resul t [facility] [address] [place] [address], [place] [phone] * (ABNORMAL) Comprehensive metabolic panel (01/04/2025 6:38 PM EDT) Only the most recent of2 resultswithin the time period is included. Sodium 135 133 - 145 mmol/L LAB CHEMISTRY METHOD 01/04/2025 7:41 PM EDT [facility] Potassium 3.4(L) 3.5 - 5.5 mmol/L LAB CHEMISTRY METHOD 01/04/2025 7:41 PM [facility] Chloride 103 96 - 110 mmol/L LAB CHEMISTRY METHOD 01/04/2025 7:41 PM [facility] CO2 20(L) 21 - 32 mmol/L LAB CHEMISTRY METHOD 01/04/2025 7:41 PM [facility] Anion Gap 12(H) 3 - 11 LAB CHEMISTRY METHOD 01/04/2025 7:41 PM [facility] Glucose 81 70 - 100 mg/dL LAB CHEMISTRY METHOD 01/04/2025 7:41 PM [facility] BUN 35(H) 5 - 25 mg/dL LAB CHEMISTRY METHOD 01/04/2025 7:41 PM [facility] Creatinine 0.96 0.70 - 1.30 mg/dL LAB CHEMISTRY METHOD 01/04/2025 7:41 PM [facility] eGFR 77 >=60 mL/min/1. 73m2 LAB CHEMISTRY METHOD 01/04/2025 7:41 PM [facility] Comment:Calculation based on the??Chronic Kidney Disease Epidemiology Collaboration (CKD-EPI) equation refit??without adjustment for race. BUN/Creatinine Ratio 36.5 LAB CHEMISTRY METHOD 01/04/2025 7:41 PM [facility] Calcium 9.1 8.5 - 10.5 mg/dL LAB CHEMISTRY METHOD 01/04/2025 7:41 PM [facility] AST (SGOT) 33 10 - 42 unit/L LAB CHEMISTRY METHOD 01/04/2025 7:41 PM [facility] ALT (SGPT) 26 10 - 60 unit/L LAB CHEMISTRY METHOD 01/04/2025 7:41 PM [facility] Alkaline Phosphatase 78 42 - 121 unit/L LAB CHEMISTRY METHOD 01/04/2025 7:41 PM [facility] Total Protein 7.0 6.0 - 8.0 g/dL LAB CHEMISTRY METHOD 01/04/2025 7:41 PM EDT [facility] Albumin 3.9 3.2 - 5.0 g/dL LAB CHEMISTRY METHOD 01/04/2025 7:41 PM EDT [facility] Total Bilirubin 1.0 0.0 - 1.4 mg/dL LAB CHEMISTRY METHOD 01/04/2025 7:41 PM EDT [facility] Blood Venous blood specimen / Unknown Venipuncture / Unknown 01/04/2025 6:38 PM EDT 01/04/2025 7:01 PM EDT Luis Diego MD LAB BLOOD ORDERABLES Final Result [facility] [address] [place] [address], [place] [phone] * ECG-Annotated (01/03/2025) Only the most recent of2 resultswithin the time period is included. Provider Onchandler ALBA ECG ORDERABLES Final Result * CT Head wo Contrast (01/01/2025 12:42 AM EDT) Anatomical Region Laterality Modality Head and Neck Computed Tomogra phy 01/01/2025 2:04 AM EDT Impressions 01/01/2025 2:04 AM EDT 1. No acute intracranial abnormality. 2. Additional findings as described. This document has been electronically signed by: Og Horvath MD on 01/01/2025 02:04:08 Narrative 01/01/2025 2:04 AM EDT INDICATION: Dizziness, non-specific CT head without contrast Comparison: None Findings: Scattered subcortical and periventricular hypoattenuation, likely in keeping with chronic small vessel ischemic disease. Parenchymal volume loss with compensatory prominence of the ventricles and CSF spaces. No acute territorial infarction, intracranial hemorrhage, midline shift or hydrocephalus. 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 There is no sinus or mastoid fluid. The orbits are unremarkable. No skull fracture. Procedure Note Og Horvath MD - 01/01/2025 INDICATION: Dizziness, non-specific CT head without contrast Comparison: None Findings: Scattered subcortical and periventricular hypoattenuation, likely in keeping with chronic small vessel ischemic disease. Parenchymal volume loss with compensatory prominence of the ventricles and CSF spaces. No acute territorial infarction, intracranial hemorrhage, midline shift or hydrocephalus. 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 There is no sinus or mastoid fluid. The orbits are unremarkable. No skull fracture. IMPRESSION: 1. No acute intracranial abnormality. 2. Additional findings as described. This document has been electronically signed by: Og Horvath MD on 01/01/2025 02:04:08 us [address] IM[facility] CT PROCEDURES Final R esult * XR Chest 2 Views (01/01/2025 12:39 AM EDT) Only the most recent of2 resultswithin the time period is included. Anatomical Region Laterality Modality Body Radiographic Maia ging 01/01/2025 9:15 AM EDT Impressions 01/01/2025 9:16 AM EDT No acute findings. -------- FINAL REPORT -------- Dictated By: Og Cruz Dictated Date: 01/01/2025 09:15 ET Assigned Physician: Og Cruz Reviewed and Electronically Signed By: Og Cruz Signed Date: 01/01/2025 09:16 ET Workstation ID: [id number] Transcribed By: Self Edit Transcribed Date: 01/01/2025 09:15 ET Narrative 01/01/2025 9:16 AM EDT PROCEDURE: PA and lateral radiographs of the chest. HISTORY: general weakness. COMPARISON: 10/23/2024. FINDINGS: Lungs, pleural spaces, pulmonary vasculature, and cardiomediastinal contours are normal. ??Mild degenerative changes of the spine. ??Stable mild anterior wedging of several of the lower thoracic vertebral bodies. Procedure Note Og Cruz MD - 01/01/2025 PROCEDURE: PA and lateral radiographs of the chest. HISTORY: general weakness. COMPARISON: 10/23/2024. FINDINGS: Lungs, pleural spaces, pulmonary vasculature, and cardiomediastinalcontours are normal. Mild degenerative changes of the spine. Stable mildanterior wedging of several of the lower thoracic vertebral bodies. IMPRESSION: No acute findings. -------- FINAL REPORT -------- Dictated By: Og Cruz Dictated Date: 01/01/2025 09:15 ET Assigned Physician: Og Cruz Reviewed and Electronically Signed By: Og Cruz Signed Date: 01/01/2025 09:16 ET Workstation ID: [id number] Transcribed By: Self Edit Transcribed Date: 01/01/2025 09:15 ET Luis LINDO IMG XR PROCEDURES Final R esult * Troponin I high sensitivity (01/01/2025 12:03 AM EDT) Only the most recent of4 resultswithin the time period is included. [facility] High Sensitivity Troponin I 6 <=79 ng/L LAB CHEMISTRY METHOD 01/01/2025 12:47 AM EDT [facility] Blood Venous blood specimen / Unknown Venipuncture / Unknown 01/01/2025 12:03 AM EDT 01/01/2025 12:07 AM EDT Narrative [facility] - 01/01/2025 12:47 AM EDT High levels of biotin in samples may falsely decrease hsTroponin values. ??Use caution when interpreting hsTroponin results in patients taking biotin who exhibit renal impairment (eGFR <60) or in patients taking more than 20 mg/day of biotin. Jose Yip MD LAB BLOOD ORDERABLES Final Resu lt [facility] [address] [place] [address], [place] [phone] * Hepatic function panel (12/31/2024 10:23 PM EDT) [facility] Total Protein 6.7 6.0 - 8.0 g/dL LAB CHEMISTRY METHOD 01/01/2025 12:48 AM [facility] Albumin 4.0 3.2 - 5.0 g/dL LAB CHEMISTRY METHOD 01/01/2025 12:48 AM [facility] Total Bilirubin 0.5 0.0 - 1.4 mg/dL LAB CHEMISTRY METHOD 01/01/2025 12:48 AM [facility] Bilirubin, Direct 0.2 0.0 - 0.3 mg/dL LAB CHEMISTRY METHOD 01/01/2025 12:48 AM [facility] Bilirubin, Indirect 0.3 0.0 - 1.1 mg/dL LAB CHEMISTRY METHOD 01/01/2025 12:48 AM [facility] ALT (SGPT) 22 10 - 60 unit/L LAB CHEMISTRY METHOD 01/01/2025 12:48 AM [facility] AST (SGOT) 24 10 - 42 unit/L LAB CHEMISTRY METHOD 01/01/2025 12:48 AM [facility] Alkaline Phosphatase 98 42 - 121 unit/L LAB CHEMISTRY METHOD 01/01/2025 12:48 AM [facility] Blood Venous blood specimen / Unknown Venipuncture / Unknown 12/31/2024 10:23 PM EDT 12/31/2024 10:33 PM EDT us Luis LINDO LAB BLOOD ORDERABLES Nancy l Result [facility] [address] [place] [address], * ECG 12 lead (12/31/2024 10:14 PM EDT) Only the most recent of2 resultswithin the time period is included. [facility] Ventricular Rate ECG 65 BPM G[facility] Atrial Rate 65 BPM GEMUSE P-R Interval 132 ms GEMUSE QRS Duration 84 ms GEMUSE Q-T Interval 412 ms GEMUSE QTc 428 ms GEMUSE P Wave [place] 41 degrees GEMUSE R [place] -33 degrees GEMUSE T [place] 24 degrees GEMUSE ECG Interpretation Normal sinus rhythm Left axis deviation Minimal voltage criteria for LVH, may be normal variant ( R in aVL ) Nonspecific ST abnormality Abnormal ECG When compared with ECG of 23-OCT-2024 01:18, No significant change was found Confirmed by ARACELI LEONARD ([id number]) on 01/01/2025 3:37:46 PM GEM[facility] 12/31/2024 10:1 4 PM EDT 01/01/2025 3:37 PM EDT Jose Yip MD ECG ORDERABLES Final Result [facility] * XR Lumbar Spine 2-3 Views (10/23/2024 9:13 AM EST) Anatomical Region Laterality Modality Spine, L-spine Radiographic Maia ging 10/23/2024 9:27 AM EST Impressions 10/23/2024 9:28 AM EST No acute findings. -------- FINAL REPORT -------- Dictated By: Og Cruz Dictated Date: 10/23/2024 09:27 ET Assigned Physician: Og Cruz Reviewed and Electronically Signed By: Og Cruz Signed Date: 10/23/2024 09:28 ET Workstation ID: [id number] Transcribed By: Self Edit Transcribed Date: 10/23/2024 09:27 ET Narrative 10/23/2024 9:28 AM EST PROCEDURE: Radiographs of the lumbar spine. HISTORY: back pain. COMPARISON: None. FINDINGS: The bones are diffusely demineralized. ??Alignment is normal. 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 ??Minimal endplate osteophytes. ??Minimal Baastrup's changes. ??Mild degenerative changes of the facet joints, most prominent at L5-S1. Procedure Note Og Cruz MD - 10/23/2024 PROCEDURE: Radiographs of the lumbar spine. HISTORY: back pain. COMPARISON: None. FINDINGS: The bones are diffusely demineralized. Alignment is normal. There arechanges of DISH in the lower thoracic region. Minimal endplateosteophytes. Minimal Baastrup's changes. Mild degenerative changes ofthe facet joints, most prominent at L5-S1. IMPRESSION: No acute findings. -------- FINAL REPORT -------- Dictated By: Og Cruz Dictated Date: 10/23/2024 09:27 ET Assigned Physician: Og Cruz Reviewed and Electronically Signed By: Og Cruz Signed Date: 10/23/2024 09:28 ET Workstation ID: [id number] Transcribed By: Self Edit Transcribed Date: 10/23/2024 09:27 ET Luis LINDO IMG XR PROCEDURES Final R esult * B-type natriuretic peptide (10/23/2024 1:04 AM EST) BNP 15 <=100 pcg/mL LAB CHEMISTRY METHOD 10/23/2024 2:24 AM EST [facility] Blood Venous blood specimen / Unknown Venipuncture / Unknown 10/23/2024 1:04 AM EST 10/23/2024 1:40 AM EST us Marilu Parsons MD LAB BLOOD ORDERABLES Fin al Result [facility] [address] [place] [address], * (ABNORMAL) Lipase (10/23/2024 1:04 AM EST) Lipase 76(H) 13 - 75 unit/L LAB CHEMISTRY METHOD 10/23/2024 2:17 AM EST [facility] Blood Venous blood specimen / Unknown Venipuncture / Unknown 10/23/2024 1:04 AM EST 10/23/2024 1:40 AM EST Marilu Parsons MD LAB BLOOD ORDERABLES Fin al Result [facility] [address] [place] [address], [place] [phone] * ECG-Outside (10/23/2024) us Provider Onbase ECG ORDERABLES Final Result from Last 3 Months Additional Health Concerns Infection Onset Date Last Indicated COVID-19 01/04/2025 01/04/2025 Insurance MEDICARE MEDICAID - [place] Advance Directives Documents on File Type Date Recorded Patient Reset Merchandiser Expl anation Health Care Decision (hx) 08/07/2023 AD DEMPSEY DIRECTIVE Health Care Decision (hx) 08/07/2023 AD DEMPSEY DIRECTIVE Health Care Decision (hx) 08/07/2023 AD DEMPSEY DIRECTIVE Health Care Decision (hx) 08/07/2023 AD DEMPSEY DIRECTIVE Health Care Decision (hx) 08/07/2023 AD DEMPSEY DIRECTIVE Health Care Decision (hx) 08/07/2023 AD DEMPSEY DIRECTIVE Health Care Decision (hx) 08/07/2023 AD DEMPSEY DIRECTIVE Health Care Decision (hx) 08/07/2023 AD DEMPSEY DIRECTIVE * Full Code - Default (Latest Code Status on File) Date Activated Date Inactivated Comments 01/04/2025 10:43 PM 01/06/2025 2:30 PM This is ord er is used when code status has not been discussed with the patient, or code status is otherwise unknown/unconfirmed To update the patient's code status, place a code status order. Do not modify or discontinue any currently active code status orders. Care Teams Applications Development Analyst Relationship Specialty Start Date End Date Flavio Cortes PA [address] [place] [address] PCP - General 09/29/23
--- OUTSIDE RECORDS SUMMARY | 2025-01-10 10:00 | XMS_ITS | Clinical Summary ---
Author Organization [facility] Address [address] [place] [address] Care Team Providers Care Landing Worker Name Role Phone Susanna Ramirez PA-C Primary Care Provider [phone] Source Comments PLEASE NOTE, if this patient is a minor, it may be UNLAWFUL to discuss sensitive information that is contained in these records (such as FAMILY PLANNING, MENTAL HEALTH or SUBSTANCE ABUSE) with the minor patient's parent or other person without the patient's specific authorization.[facility] Allergies Active Allergy Reactions Criticality Noted Date Comments Aspirin Other (See Comments) 10/01/2018 headache Medications leuprolide, 3 month, 22.5 mg syrgIndications:Me tastatic adenocarcinoma to prostate (HCC-CMS) Inject 1 Dose into the skin every 3 (three) months 1 Syringe 12/08/19 19 Active acetaminophen (TYLENOL) 500 mg tabletIndications: Metastatic adenocarcinoma to prostate (HCC-CMS),Lumbar degenerative disc disease,Thoracic degenerative disc disease Take 1 Tab by mouth every 6 (six) hours as needed for pain 90 Tab 5 03/22/20 19 Active pantoprazole (PROTONIX) 40 mg EC tabletIndications: Gastroesophageal reflux disease without esophagitis Take 1 Tab by mouth every morning before breakfast 90 Tab 2 04/12/20 19 Active traMADol (ULTRAM) 50 mg tabletIndications: Prostatic adenocarcinoma (HCC-CMS),Lumbar degenerative disc disease,Thoracic degenerative disc disease Take 1/2 tab PO at bedtime for pain 15 Tab 05/06/20 19 Active miscellaneous medical supply miscIndications:Pr ostatic adenocarcinoma (HCC-CMS),Frail elderly,Osteophyte of left knee,At risk for falls,Lumbar degenerative disc disease,Thoracic degenerative disc disease by miscellaneous route once daily Dispense (1) cane. Lifetime use. DX: DX: C79.82, Z91.81, M25.762, M51.36, M51.34 Z87.1, R54 1 Each 05/06/20 19 Active Active Problems Problem Noted Date Diagnosed Date History of pneumonia 04/12/2019 Overview (04/12/2019): Chest Routine 2 Views - 03/04/19 IMPRESSION: There is a small area of pneumonia in the right upper lobe, new since 11/07/2018. Metastatic adenocarcinoma to prostate ([facility]) 12/07/2018 Osteophyte of left knee 12/07/2018 Thoracic degenerative disc disease 12/07/2018 Lumbar degenerative disc disease 12/07/2018 Frail elderly 12/07/2018 At risk for falls 12/07/2018 Hx of fracture of rib 12/07/2018 Poor vision 12/07/2018 Gastroesophageal reflux disease without esophagi tis 11/05/2018 Immunizations Immunization Administration Dates Next Due Influenza (FLUZONE), high-dose, trivalent, PF Social History Tobacco Use Types Packs/Day Years Used Date Smoking Tobacco: Never Smokeless Tobacco: Never Tobacco Cessation:Counseling Given: No Alcohol Use Standard Drinks/Week Comments No 0 (1 standard drink = 0.6 oz pur e alcohol) Social Connections Answer Date Recorded Social Connections and Isolation 0 05/12/2019 Financial Resource Strain Answer Date R ecorded Financial Resource Strain 0 2018 Stress Answer Date Recorded Stress 0 05/12/2019 Physical Activity Answer Date Recorded Physical Activity 0 05/12/2019 Food Insecurity Answer Date Recorded Food 0 05/12/2019 Transportation Needs Answer Date Record ed Transportation 0 05/12/2019 Housing Stability Answer Date Recorded Housing 0 05/12/2019 Safety and Environment Answer Date Raciel rded Safety 0 05/12/2019 Utilities Answer Date Recorded Utilities 0 05/12/2019 Employment Answer Date Recorded Employment 0 05/12/2019 Sex and Gender Information Value Date Recorded Sex Assigned at Male 10/01/2018 10:33 AM PST Legal Sex Male 7:05 AM PST Gender Identity Male 10/01/2018 10:33 AM PST Sexual Orientation Straight 10/01/2018 10 :33 AM PST Last Filed Vital Signs Vital Sign Reading Time Taken Comments Blood Pressure 124/74 05/06/2019 4:23 PM EDT Pulse 68 05/06/2019 4:23 PM EDT Temperature 36.7 ??C (98 ??F) 03/22/2019 3:22 PM EDT Respiratory Rate 16 05/06/2019 4:23 PM EDT Oxygen Saturation 97% 05/06/2019 4:23 PM EDT Inhaled Oxygen Concentration - - Weight 57.6 kg (127 lb) 05/06/2019 4:23 PM EDT Height 154.9 cm (5' 1 ) 11/05/2018 3:50 PM EST Body Mass Index 24 11/05/2018 3:50 PM EST Plan of Treatment Not on file Insurance [place] - [place] Care Teams Landing Worker Relationship Specialty Start Date End Date Susanna Ramirez PA-C [address] [place] [address] PCP - General Internal Medicine 10/26/18
[2025-01-10 10:09] VITALS: BP 122/72; PULSE 107; TEMP 36.2; O2SAT 98; BMI 22.9
--- NOTE | 2025-01-10 10:09 | A.OFFPC_ITS ---
Vital Signs 01/10/25 10:09 Height 5 ft 2 in Weight 125 lb BMI 22.9 BP 122/72 Blood Pressure Location Lt brachial Position Sitting Pulse 107 H Pulse Source Pulse Oximeter Temp 97.1 F Temp Source Temporal Artery Scan Pulse Oximetry (%) 98 Oxygen Delivery Method Room Air Intake Visit Reasons: f/u Prostate ca, Knee osteoarthritis Vacuum Cleaner Repair Person Required: No Accompanied by: Daughter Allergies aspirin Allergy (Intermediate, Verified 01/10/25 10:15) itchy body Medication List - Last Reconciled 01/10/25 by Flavio Cortes PA-C acetaminophen (Tylenol Extra Strength) 500 mg PO Q8H PRN 30 days bicalutamide 50 mg PO DAILY lidocaine 4% (Lidocaine Pain Relief) 1 patch topical DAILY 30 days Tobacco use date assessed: 07/12/24 Dental Screening Dental Screen Date: 07/12/24 HPI f/u Prostate ca, Knee osteoarthritis HPI Details Patient is an 89-year-old male Tunisian-speaking here today for follow-up visit..? Patient currently living with his daughter in the [facility] area though was back and forth to [place].? Patient has a past medical history significant for prostate cancer, polyarthritis. Concerns--> patient's family concerned about patient's mental status as he often does not listen and leaves the home without being attended. He often goes to store to get scratch tickets. Daughter does report John often complains of pain and dizziness though when gets checked out at a local ER there are no pertinent findings. Patient's daughter is concerned about his safety as he does leave the home to go to work and leaves friend physical home alone for few hours during the day. Family has spoken to John about going into a retirement though he declines. We did discuss the possibility of getting John a MACHINE DYER to stay with him antwon tamar the day and help him with his activities of daily living though family declines at this time. . Prostate cancer: He has followed up with Urology and reports getting a biopsy in the past. Apparently is on hormonal therapy though this is unclear.. He denies any urinary symptoms . [facility] Medical History GERD (gastroesophageal reflux disease) Prostate CA Surgical History History of colonoscopy History of esophagogastroduodenoscopy (EGD) Family History Brother Cancer Brother Cancer Brother Cancer Sister Cancer Sister Cancer Sister Cancer Social History Housing: House Are you a primary healthcare corporate account director to a significant other at home: No Do you presently have visiting nurse or other home services: No Alcohol intake: never Patient Tobacco Use Status: Never used Tobacco e-Cigarette/Vaping Use: Never Used Second Hand Smoke Exposure: No service: No Current occupational status: retired Cognitive needs: Yes (cane) Hearing needs: No Vision needs: No Questionnaire PHQ-9 Over the last 2 weeks, how often have you been bothered by any of the following problems? 1. Little interest or pleasure in doing things: not at all 2. Feeling down, depressed, or hopeless: not at all 3. Trouble falling or staying asleep, or sleeping too much: not at all 4. Feeling tired or having little energy: not at all 5. Poor appetite or overeating: not at all 6. Feeling bad about yourself - or that you are a failure or have let yourself or your family down: not at all 7. Trouble concentrating on things, such as reading the newspaper or watching television: not at all 8. Moving or speaking so slowly that other people could have noticed. Or the opposite - being so fidgety or restless that you have been moving around a lot more than usual: not at all 9. Thoughts that you would be better off or of hurting yourself in some way: not at all Total score: 0 Depression Screening Interpretation: Negative Depression Screening Done: Yes 95266 - PHQ-9 Billing: Yes Source: Developed by Drs. Mayank Clemente, Octavia Moreno, Mathieu Hinojosa and colleagues, with an educational viry from [employer]. Thrive Questionnaire Date Thrive assessed: 01/10/25 I am a: Patient What is your living situation today?: I have a steady place to live Within the past 12 months, did the food you bought not last and you didn't have the money to get more?: Never true Within the past 12 months, did you worry whether your food would run out before you got money to buy more?: Never true Do you have trouble paying for medicines?: No Do you have trouble getting transportation to medical appointments?: No Do you have trouble paying your heating and electricity bill?: No Do you have trouble taking care of your child, family member or friend?: No Do you have trouble with day-to-day activities such as bathing, preparing meals, shopping, managing finances, etc.?: No Are you currently unemployed and looking for a job?: No Are you interested in more education?: No Please select the resources that you would like help with: None THRIVE Score: 0 AUDIT C Alcohol Use Questionnaire (AUDIT-C) 1. How often do you have a drink containing alcohol?: Never 3. How often do you have six or more drinks on one occasion?: Never Total Score: 0 RENÉE-7 AMB Questionnaire RENÉE-7 Date RENÉE - 7 assessed: 01/10/25 Feeling nervous, anxious, or on edge: 0 = Not at all Not being able to stop or control worryin = Not at all Worrying too much about different things: 0 = Not at all Trouble relaxin = Not at all Being so restless that it is hard to sit still: 0 = Not at all Becoming easily annoyed or irritable: 0 = Not at all Feeling afraid as if something awful might happen: 0 = Not at all Total RENÉE-7 score (0-4 normal; 5-9 mild; 10-14 moderate; 15-21 severe): 0 Source: Developed by Drs. Mayank Clemente, Octavia Moreno, Mathieu Hinojosa and colleagues, with an educational viry from [employer]. RENÉE-7 Assessment Billing RENÉE-7 Assessment Tool: ERNÉE-7 Assessment 04532 Review of Systems Const Denies headache(s) Eyes Denies loss of vision ENT Denies vertigo, Denies dizziness, Denies headache(s) and Denies sore throat Card Denies chest pain, Denies leg edema and Denies lightheadedness Resp Denies cough, Denies hemoptysis and Denies wheezing GI Denies abdominal pain, Denies melena, Denies constipation, Denies diarrhea and Denies vomiting Denies dysuria, Denies urinary frequency and Denies urinary urgency Musc Denies arthralgias, Denies joint swelling, Denies numbness and Denies tingling Neuro Denies Abnormal speech present, Denies behavioral changes, Denies vertigo, Denies dizziness, Denies headache(s), Denies loss of vision, Denies memory loss, Denies numbness and Denies tingling Psych Denies anxiety, Denies behavioral changes, Denies depression, Denies memory loss and Denies panic attacks Maximiliano/Lymph Denies easy bleeding and Denies easy bruising Aller/Immun Denies wheezing Physical exam (Primary Care) Vital Signs: Last Vital Signs Temp 97.1 F 01/10/25 10:09 Pulse 107 H 01/10/25 10:09 BP 122/72 01/10/25 10:09 Pulse Ox 98 01/10/25 10:09 Oxygen Delivery Method Room Air 01/10/25 10:09 BMI result Body Mass Index 22.9 Tobacco/Smoking Status: Tobacco use Status Tobacco use date assessed 07/12/24 01/10/25 10:10 Patient Tobacco Use Status Never used Tobacco 01/10/25 10:10 e-Cigarette/Vaping Use Never Used 01/10/25 10:10 PHQ-9: PHQ-9 Score PHQ-9: Total score 0 01/10/25 10:18 Depression Screening Interpretation: Negative Thrive Assessment: Date of Thrive Assessment Date Thrive assessed 01/10/25 01/10/25 10:14 Const General: healthy appearing, no acute distress, alert and awake Nutritional Appearance: well nourished Orientation/consciousness: oriented to person, oriented to place and oriented to time HENMT Ears: TM's normal bilaterally General nose exam: Normal nasal mucous membranes and turbinates present Eyes Conjunctivae: conjunctivae normal Sclerae: sclerae normal Pupils: Equal, round and reactive pupils present Neck Neck: Yes no lymphadenopathy and Yes no JVD Thyroid: Thyroid normal Carotids: no bruits Resp Effort & Inspection: normal respiratory effort and not tachypneic Auscultation: no crackles, no rales, no rhonchi and no wheezes Cardio Rate: regular rate Rhythm: regular rhythm Heart sounds: no murmurs and normal S1 and S2 GI Palpation (GI): Soft to palpation, nontender, no hepatomegaly and no splenomegaly Auscultation: normal bowel sounds Skin General skin exam: no rashes or lesions noted and dry skin Neuro General: oriented to person, oriented to place and oriented to time Cranial nerves: Yes Equal, round and reactive pupils present Speech: No Abnormal speech present Gait exam (Neuro): Normal gait present Motor exam (neuro): no tremor noted Extrem Right upper extremity: full ROM Left upper extremity: full ROM Right lower extremity: full ROM; no edema Left lower extremity: full ROM; no edema Psych Mental Status: mental status grossly normal Speech and movement: Normal speech and movement present Affect: normal affect Attitude: cooperative Thought process: Normal thought process present Coding Level of Care Code Est Pt Level 4 (62234) Diagnoses Prostate CA C61 Screening for diabetes mellitus (DM) Z13.1 Memory impairment R41.3 Additional Codes RENÉE-7 Assessment Billing - RENÉE-7 Assessment Tool: RENÉE-7 Assessment 11524 ([id number]) PHQ-9 - 78986 - PHQ-9 Billing: Yes ([id number]) Assessment & Plan Assessment & Plan (1) Prostate CA: Code(s): C61 - Malignant neoplasm of prostate Category: Medical Plan: Patient was followed by Urology in [place]. Was on hormonal therapy. Has missed the appointment with the urologist due to traveling back and forth to [place]. Patient's daughter promises to call Urology to reschedule appointment. (2) Screening for diabetes mellitus (DM): Code(s): Z13.1 - Encounter for screening for diabetes mellitus Category: Medical Plan: As per HPI (3) Memory impairment: Code(s): R41.3 - Other amnesia Category: Medical Plan: Patient's family interested in getting help with John at home. He lives at home with his daughter whom works full-time as well and is concerned about John leaving the home while she is gone to go buy scratch tickets. He would likely benefit from a MACHINE DYER to help Suzie with some activities of daily living in a reminder to take medication. Family has talked about placing John in a retirement though he adamantly declines --> we discussed getting patient a MACHINE DYER to help with his activities of daily living though daughter today is apprehensive on this. Orders: Orders MR head/brain wo con 01/10/25 R41.3 - Other amnesia Prostate Specific Antigen Scr 01/10/25 C61 - Malignant neoplasm of prostate, Z12.5 - Encounter for screening for malignant neoplasm of prostate Referrals Urology Referral C61 - Malignant neoplasm of prostate Neurology Referral R41.3 - Other amnesia
== END 2025-01-10 10:36 | disposition home or self-care (01) ==
PROVIDERS: PCP Physician Assistant; Visit Provider Physician Assistant
DX: C61 Malignant neoplasm of prostate (principal); Z13.1 Encounter for screening for diabetes mellitus; R41.3 Other amnesia

== ENCOUNTER → 2025-01-10 09:55 | Outpatient (BNVA) | payer MEDICARE, MEDICAID, SELFPAY | PROVIDERS: PCP Physician Assistant; Visit Provider Physician Assistant | DX: C61 Malignant neoplasm of prostate (principal); R41.3 Other amnesia | CPT/HCPCS: 96127; 99212 ==

== ENCOUNTER → 2025-01-12 23:59 | Outpatient (BNV) | payer MEDICARE, MEDICAID, SELFPAY | PROVIDERS: PCP Physician Assistant; Visit Provider Physician Assistant | DX: K64.9 Unspecified hemorrhoids (principal); K21.9 Gastro-esophageal reflux disease without esophagitis; R91.8 Other nonspecific abnormal finding of lung field | CPT/HCPCS: G0180 ==

== ENCOUNTER 2025-02-03 16:42 | Outpatient (REF) | payer OTHER, SELFPAY ==
--- NOTE | ~2025-02-03 | MR_ITS ---
EXAMINATION: MR BRAIN WITHOUT IV CONTRAST HISTORY: R41.3 - Other amnesia TECHNIQUE: Sagittal T1, coronal FLAIR, and axial T1, FLAIR, T2, gradient echo, and diffusion weighted MR images of the brain were obtained. COMPARISON: None FINDINGS: There is diffuse prominence of the ventricular system and cortical sulci, consistent with atrophy. Periventricular and subcortical white matter hyperintensities are noted on the FLAIR and T2-weighted images which are nonspecific, but often seen in the setting of small vessel ischemic disease. There is no mass effect or midline shift. No intra or extra-axial fluid collections are identified. There are no foci of restricted diffusion. 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 Normal vascular flow voids are noted in the basilar and carotid arteries. The visualized paranasal sinuses are clear. 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 No evidence of an acute infarct. Electronically signed by: Mayank Martinez MD 02/04/2025 07:54 AM EDT
== END 2025-02-03 16:43 | disposition home or self-care (01) ==
LOC: HO.MRI 16:42
PROVIDERS: PCP Physician Assistant; Visit Provider Physician Assistant
DX: R41.3 Other amnesia (principal)
CPT/HCPCS: 70551

== ENCOUNTER → 2025-02-03 16:42 | Outpatient (BNV) | payer OTHER, SELFPAY | PROVIDERS: PCP Physician Assistant; Visit Provider Radiology Diagnostic Radiology | DX: R41.3 Other amnesia (principal) | CPT/HCPCS: 70551 ==

== ENCOUNTER 2025-03-21 14:22 | Outpatient (AMB) | payer OTHER, SELFPAY ==
--- NOTE | 2025-03-21 14:25 | A.OFFVIS_ITS ---
Vital Signs 03/21/25 14:26 Height 5 ft 2 in Weight 12 lb 9 oz BMI 2.3 BP 124/74 Blood Pressure Location Rt brachial Position Sitting Intake Visit Reasons: INP-Other Amnesia Intake Note: Patient in house referred for memory impairment. Health Inspector Food Required: Yes Health Inspector Food Services: Health Inspector Food Offered & Declined Health Inspector Food Name: family friend Susanna Allergies aspirin Allergy (Intermediate, Verified 03/21/25 14:28) itchy body Medication List - Last Reconciled 03/21/25 by Brigitte Petersen MD acetaminophen (Tylenol Extra Strength) 500 mg PO Q8H PRN 30 days bicalutamide 50 mg PO DAILY lidocaine 4% (Lidocaine Pain Relief) 1 patch topical DAILY 30 days memantine ER PO PER PKG DIR HPI Comments Details: 89y/o left handed male comes for evaluation of short term memory issues. He lives with his daughter and moved from [place] last year. He is accompanied by his friend who helps with history. His daughter has noticed short term memory issues , frequently repeating himself , confused for past 1 year atleast - unclear . 2 weeks ago he c./o chest pain - was taken to ER - cardiac causes was ruled out and was discharged. He is independent in taking care of his personal hygiene.. His daughter cooks for him , does laundry , takes care of finances, medications etc. 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 He can read and write in [place]ian - went to school until 9 th grade. He has h/o closed head injuries. No h/o heavy alcohol use .He denies depression or anxiety. He is home bound and is not active socially.He sleeps ok - denies any hallucinations or sundowning.He has some vivid dreams. No further history was obtainable. [facility] Medical History (Updated 03/21/25 @ 14:56 by Brigitte Petersen MD) Mild cognitive impairment GERD (gastroesophageal reflux disease) Prostate CA Surgical History History of colonoscopy History of esophagogastroduodenoscopy (EGD) Family History Brother Cancer Brother Cancer Brother Cancer Sister Cancer Sister Cancer Sister Cancer Social History Housing: House Are you a primary hiv/aids care nurse to a significant other at home: No Do you presently have visiting nurse or other home services: No Alcohol intake: never Patient Tobacco Use Status: Never used Tobacco e-Cigarette/Vaping Use: Never Used Second Hand Smoke Exposure: No service: No Current occupational status: retired Cognitive needs: Yes (cane) Hearing needs: No Vision needs: No Physical Exam Vital Signs: Last Vital Signs BP 124/74 03/21/25 14:26 BMI result Body Mass Index 2.3 Const General: cooperative, healthy appearing and comfortable Nutritional Appearance: average body habitus Neuro General: gait normal, tone normal, moves all extremities and no focal motor deficits Cognition (Neuro): abnormal cognition Gait exam (Neuro): Antalgic gait present Motor exam (neuro): 5/5 motor strength present throughout and Normal motor muscle tone present throughout Orientation What is the (year) (season) (date) (day) (month)?: season, date, day and month Where are we (state) ([facility]) (town or city) (hospital) (floor)?: state, town or city, hospital/clinic and floor Registration Name of 3 unrelated objects clearly and slowly, then ask patient to repeat all 3 of them. (1st repeat determines score. Make sure they can repeat all three): object 1, object 2 and object 3 Recall Ask patient to repeat the 3 items from question #3.: object 1 and object 3 Language Show patient a wristwatch & ask what it is. Repeat for pencil.: watch and pencil Ask the patient to repeat the phrase 'No ifs, ands, or buts' after you.: correct Ask the patient to 'take a piece of paper with their right hand' 'fold paper in half' 'place paper on floor': take paper in right hand, fold paper in half and place paper on floor Print the sentence 'CLOSE YOUR EYES' on a piece. If patient actually closes eyes then score.: followed written direction Give patient a blank piece of paper & ask to write a sentence. 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 No evidence of an acute infarct. 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 He did reasonable well for his education level on MMSE Reviewed MRI brain check his B12 TSH ESR CBC CMP and trial memantine xr titration pack 7-28 mg An adult daycare or activities in Senior center can help slow the progress. activities like puzzles, word search , cardgames wood work etc . Orders: Orders Comprehensive Met. Panel Today G31.84 - Mild cognitive impairment of uncertain or unknown etiology Vitamin B12 and Folate Today G31.84 - Mild cognitive impairment of uncertain or unknown etiology Complete Blood Count Auto Diff Today G31.84 - Mild cognitive impairment of uncertain or unknown etiology Erythrocyte Sedimentation Rate Today G31.84 - Mild cognitive impairment of uncertain or unknown etiology Medications: New memantine ER PO PER PKG DIR 1 ea 0RF Coding Level of Care Code New Pt Level 4 (71791) Complex EM visit Add On G2211 Diagnoses Mild cognitive impairment G31.84
[2025-03-21 14:26] VITALS: BP 124/74
--- OUTSIDE RECORDS SUMMARY | 2025-03-21 14:53 | XMS_ITS | Clinical Summary ---
Author Organization [facility] Address [address] [place] [address] Care Team Providers Care Live In Caregiver Name Role Phone Susanna Ramirez PA-C Primary Care Provider [phone] Source Comments PLEASE NOTE, if this patient [...] 22.5 mg syrgIndications:Me tastatic adenocarcinoma to prostate ([facility]) Inject 1 Dose into the skin every 3 (three) months 1 Syringe 12/08/19 19 Active acetaminophen (TYLENOL) 500 mg tabletIndications: Metastatic adenocarcinoma to prostate ([facility]),Lumbar degenerative disc disease,Thoracic degenerative disc disease Take 1 Tab by mouth every 6 (six) hours as needed for pain 90 Tab 5 03/22/20 19 Active pantoprazole (PROTONIX) 40 mg EC tabletIndications: Gastroesophageal reflux disease without esophagitis Take 1 Tab by mouth every morning before breakfast 90 Tab 2 04/12/20 19 Active traMADol (ULTRAM) 50 mg tabletIndications: Prostatic adenocarcinoma ([facility]),Lumbar degenerative disc disease,Thoracic degenerative disc disease Take 1/2 tab PO at bedtime for pain 15 Tab 05/06/20 19 Active miscellaneous medical supply miscIndications:Pr ostatic adenocarcinoma ([facility]),Frail elderly,Osteophyte of left knee,At risk for falls,Lumbar [...] new since 11/07/2018. Metastatic adenocarcinoma to prostate ([facility]) 12/07/2018 Osteophyte of left knee 12/07/2018 Thoracic [...] 68 05/06/2019 4:23 PM EDT Temperature 36.7 C (98 F) 03/22/2019 3:22 PM EDT Respiratory Rate 16 05/06/2019 4:23 PM EDT Oxygen Saturation 97% 05/06/2019 4:23 PM EDT Inhaled Oxygen Concentration - - Weight 57.6 kg (127 lb) 05/06/2019 4:23 PM EDT Height 154.9 cm (5' 1 ) 11/05/2018 3:50 PM EST Body Mass Index 24 11/05/2018 3:50 PM EST Plan of Treatment Not on file Insurance [place] Member Subscriber Plan / Payer (Ef fective 2018-Present) Name:John Ellsworth Relation to Subscriber:Self Name:John Ellsworth Payer ID:[id number] Group ID:Not on file Type:Medicaid Address: [address] [id number] MEDICARE - [place] Care Teams Live In Caregiver Relationship Specialty Start Date End Date Susanna Ramirez PA-C [address] [place] [address] PCP - General Internal Medicine 10/26/18
--- OUTSIDE RECORDS SUMMARY | 2025-03-21 14:53 | XMS_ITS | Clinical Summary ---
Author Organization [facility] Address [address] [place] [address] Phone Care Team Providers Care Freelance Recruiter Name Role Phone Flavio Cortes Primary Care Provider Allergies Active Allergy Reactions Criticality Noted Date Comments Aspirin Other,Palpitations 10/01/2018 headache Medications bicalutamide (CASODEX) 50 mg tablet Take 1 tablet (50 mg total) by mouth 1 (one) time each day 10/20/2024 Active Active Problems Problem Noted Date Diagnosed Date COVID-19 01/04/2025 Encounters Date Type Department Care Team Description 01/04/2025 6:12 PM EDT - 01/06/2025 12:00 PM EDT Hospital Encounter [facility] Medical Surgical Unit [address] [place] [address] [phone] Luis Diego MD Kela, Kashyap Devendrabhai, MD COVID-19 (Primary Dx); Failure to thrive in adult Discharge Disposition: Home-Health Care [facility] [place] 12/31/2024 11:26 PM EDT - 01/01/2025 3:33 PM EDT Emergency [facility] Emergency [address] [place] [phone] Jose Yip MD Montano, Gary L, MD Dizziness (Primary Dx) Discharge Disposition: Home or Self Care from Last 3 Months Surgical History Surgery Date Site/Laterality Comments OTHER SURGICAL HISTORY PROCEDURE: COLONOSCOPY, SURGICAL ESOPHAGOGASTRODUODENOSCOPY PROCEDURE: ID ESOPHAGOGASTRODUODENOSCOPY TRANSORAL DIAGNOSTIC Medical History Medical History [...] 73 01/06/2025 7:33 AM EDT Temperature 36.3 C (97.4 F) 01/06/2025 7:33 AM EDT Respiratory Rate 17 01/06/2025 7:33 AM EDT [...] ECG 12-LEAD STAT 12/31/2024 10:14 PM EDT from Last 3 Months Results * (ABNORMAL) CBC auto differential (01/05/2025 6:54 AM EDT) Only the most recent of3 resultswithin the time period is included. [facility] WBC 3.6(L) 4.8 - 10.8 K/mcL LAB HEMETOLOGY METHOD 01/05/2025 8:21 AM [facility] RBC 3.40(L) 4.50 - 5.50 M/mcL LAB HEMETOLOGY METHOD 01/05/2025 8:21 AM [facility] Hemoglobin 11.5(L) 13.5 - 17.5 g/dL LAB HEMETOLOGY METHOD 01/05/2025 8:21 AM [facility] Hematocrit 33.6(L) 42.0 - 54.0 % LAB HEMETOLOGY METHOD 01/05/2025 8:21 AM [facility] MCV 99.4(H) 79.0 - 98.0 FL LAB HEMETOLOGY METHOD 01/05/2025 8:21 AM [facility] MCH 34.0(H) 27.0 - 32.0 pcg LAB HEMETOLOGY METHOD 01/05/2025 8:21 AM [facility] MCHC 34.2 32.0 - 37.0 g/dL LAB HEMETOLOGY METHOD 01/05/2025 8:21 AM [facility] RDW 13.5 11.0 - 15.0 % LAB HEMETOLOGY METHOD 01/05/2025 8:21 AM [facility] Platelets 63(L) 130 - 400 K/mcL LAB HEMETOLOGY METHOD 01/05/2025 8:21 AM [facility] Comment:reviewed by slide ALESSANDRO LAB HEMETOLOGY METHOD 01/05/2025 8:21 AM [facility] Comment:Not Measured NRBC 0.0 <1.0 % LAB HEMETOLOGY METHOD 01/05/2025 8:21 AM [facility] NRBC Absolute 0.00 <0.10 K/mcL LAB HEMETOLOGY METHOD 01/05/2025 8:21 AM [facility] Neutrophils Relative 43.0 % LAB HEMETOLOGY METHOD 01/05/2025 8:21 AM [facility] Lymphocytes Relative 46.9 % LAB HEMETOLOGY METHOD 01/05/2025 8:21 AM [facility] Monocytes Relative 6.7 % LAB HEMETOLOGY METHOD 01/05/2025 8:21 AM [facility] Eosinophils Relative 2.8 % LAB HEMETOLOGY METHOD 01/05/2025 8:21 AM [facility] Basophils Relative 0.3 % LAB HEMETOLOGY METHOD 01/05/2025 8:21 AM [facility] Immature Granulocytes Relative 0.3 % LAB HEMETOLOGY METHOD 01/05/2025 8:21 AM [facility] Neutrophils Absolute 1.53 1.50 - 7.00 K/mcL LAB HEMETOLOGY METHOD 01/05/2025 8:21 AM [facility] Lymphocytes Absolute 1.67 1.00 - 5.00 K/mcL LAB HEMETOLOGY METHOD 01/05/2025 8:21 AM [facility] Monocytes Absolute 0.24 0.20 - 1.00 K/mcL LAB HEMETOLOGY METHOD 01/05/2025 8:21 AM [facility] Eosinophils Absolute 0.10 0.00 - 0.50 K/mcL LAB HEMETOLOGY METHOD 01/05/2025 8:21 AM T [facility] Basophils Absolute 0.01 0.00 - 0.20 K/mcL LAB HEMETOLOGY METHOD 01/05/2025 8:21 AM T [facility] Immature Granulocytes Absolute 0.01 0.00 - 0.03 K/mcL LAB HEMETOLOGY METHOD 01/05/2025 8:21 AM T [facility] Blood Venous blood specimen / Unknown Venipuncture / Unknown 01/05/2025 6:54 AM EDT 01/05/2025 7:21 AM EDT us Luis Diego MD LAB BLOOD ORDERABLES Final Result [facility] [address] [place] [address], * (ABNORMAL) Basic metabolic panel (01/05/2025 6:54 AM EDT) Only the most recent of2 resultswithin the time period is included. Sodium 140 133 - 145 mmol/L LAB CHEMISTRY METHOD 01/05/2025 8:13 AM [facility] Potassium 3.6 3.5 - 5.5 mmol/L LAB CHEMISTRY METHOD 01/05/2025 8:13 AM [facility] Chloride 104 96 - 110 mmol/L LAB CHEMISTRY METHOD 01/05/2025 8:13 AM [facility] CO2 25 21 - 32 mmol/L LAB CHEMISTRY METHOD 01/05/2025 8:13 AM [facility] Anion Gap 11 3 - 11 LAB CHEMISTRY METHOD 01/05/2025 8:13 AM [facility] Glucose 68(L) 70 - 100 mg/dL LAB CHEMISTRY METHOD 01/05/2025 8:13 AM [facility] BUN 28(H) 5 - 25 mg/dL LAB CHEMISTRY METHOD 01/05/2025 8:13 AM T [facility] Creatinine 0.82 0.70 - 1.30 mg/dL LAB CHEMISTRY METHOD 01/05/2025 8:13 AM EDT [facility] eGFR 85 >=60 mL/min/1. 73m2 LAB CHEMISTRY METHOD 01/05/2025 8:13 AM T [facility] Comment:Calculation based on the Chronic Kidney Disease Epidemiology Collaboration (CKD-EPI) equation refit without adjustment for race. BUN/Creatinine Ratio 34.1 LAB CHEMISTRY METHOD 01/05/2025 8:13 AM [facility] Calcium 9.1 8.5 - 10.5 mg/dL LAB CHEMISTRY METHOD 01/05/2025 8:13 AM [facility] Blood Venous blood specimen / Unknown Venipuncture / Unknown 01/05/2025 6:54 AM EDT 01/05/2025 7:23 AM EDT us Luis Diego MD LAB BLOOD ORDERABLES Final Result [facility] [address] [place] [address], * (ABNORMAL) Urinalysis with reflex microscopic and culture (01/04/2025 10:13 PM EDT) Only the most recent of2 resultswithin the time period is included. Specific [place] Urine 1.031(H) 1.003 - 1.030 LAB URINALYSIS - AUTOMATED METHOD 01/04/2025 10:45 PM T [facility] pH, Urine 5.5 5.0 - 8.0 pH LAB URINALYSIS - AUTOMATED METHOD 01/04/2025 10:45 PM T [facility] Leukocytes, Urine Negative Negative LAB URINALYSIS - AUTOMATED METHOD 01/04/2025 10:45 PM [facility] Nitrite, Urine Negative Negative LAB URINALYSIS - AUTOMATED METHOD 01/04/2025 10:45 PM [facility] Protein, Urine 30(A) <=Trace mg/dL LAB URINALYSIS - AUTOMATED METHOD 01/04/2025 10:45 PM [facility] Glucose, Urine Negative Negative mg/dL LAB URINALYSIS - AUTOMATED METHOD 01/04/2025 10:45 PM [facility] Ketones, Urine >=80(A) Negative mg/dL LAB URINALYSIS - AUTOMATED METHOD 01/04/2025 10:45 PM [facility] Urobilinogen, Urine 1.0 0.2 - 1.0 mg/dL LAB URINALYSIS - AUTOMATED METHOD 01/04/2025 10:45 PM [facility] Bilirubin, Urine Small(A) Negative LAB URINALYSIS - AUTOMATED METHOD 01/04/2025 10:45 PM [facility] Blood, Urine Negative Negative LAB URINALYSIS - AUTOMATED METHOD 01/04/2025 10:45 PM [facility] RBC, Urine 4.4(H) 0 - 4 /HPF LAB URINALYSIS - AUTOMATED METHOD 01/04/2025 10:45 PM [facility] WBC, Urine 2.9 0 - 4 /HPF LAB URINALYSIS - AUTOMATED METHOD 01/04/2025 10:45 PM [facility] Squamous Epithelial, Urine 33 0 - 60 /LPF LAB URINALYSIS - AUTOMATED METHOD 01/04/2025 10:45 PM [facility] Bacteria, Urine Negative Negative /HPF LAB URINALYSIS - AUTOMATED METHOD 01/04/2025 10:45 PM [facility] Hyaline Casts, Urine 5.2(H) 0 - 3 /LPF LAB URINALYSIS - AUTOMATED METHOD 01/04/2025 10:45 PM [facility] Urine Urine specimen obtained by clean catch procedure / Unknown Non-blood Collection / Unknown 01/04/2025 10:13 PM EDT 01/04/2025 10:37 PM EDT Andi LINDO LAB URINE ORDERABLES Final Resul t Performing Organization Address [facility]/ZIP Co de Phone Number [facility] [address] [place] [address], [place] [phone] * Song urine culture tube (01/04/2025 10:13 PM EDT) Only the most recent of2 resultswithin the time period is included. Extra Tube Hold for add-ons. 01/05/2025 12:05 AM EDT [facility] Comment:Auto resulted. Urine Urine specimen obtained by clean catch procedure / Unknown Non-blood Collection / Unknown 01/04/2025 10:13 PM EDT 01/04/2025 10:36 PM EDT Andi LINDO LAB URINE ORDERABLES Final Resul t Performing Organization Address [facility]/ZIP Co de Phone Number [facility] [address] [place] [address], [place] [phone] * Drug abuse screen 8a panel, urine (01/04/2025 10:13 PM EDT) Amphetamine Screen, Ur Negative Negative LAB CHEMISTRY METHOD 01/04/2025 11:01 PM EDT [facility] Comment:Certain OTC medicati ons containing ephedrine, phenylephrine, pseudoephedrine and phenylpropanolamine can cause false positive results. Barbiturate Screen, Ur Negative Negative LAB CHEMISTRY METHOD 01/04/2025 11:01 PM EDT [facility] Benzodiazepine Screen, Ur Negative Negative LAB CHEMISTRY METHOD 01/04/2025 11:01 PM EDT [facility] Cocaine Screen, Ur Negative Negative LAB CHEMISTRY METHOD 01/04/2025 11:01 PM EDT [facility] Opiate Screen, Ur Negative Negative LAB CHEMISTRY METHOD 01/04/2025 11:01 PM EDT [facility] Cannabinoid (THC) Screen, Ur Negative Negative LAB CHEMISTRY METHOD 01/04/2025 11:01 PM EDT [facility] Comment:Specimens from patie nts taking pantoprazole sodium (Protonix) have been shown to produce false positive results. Oxycodone Screen, Ur Negative Negative LAB CHEMISTRY METHOD 01/04/2025 11:01 PM EDT [facility] Fentanyl, Ur Negative Negative LAB CHEMISTRY METHOD 01/04/2025 11:01 PM EDT [facility] Urine Urine specimen obtained by clean catch procedure / Unknown Non-blood Collection / Unknown 01/04/2025 10:13 PM EDT 01/04/2025 10:36 PM EDT Narrative [facility] - 01/04/2025 11:01 PM EDT Assay cutoffs: Amphetamines 1000 ng/mL Barbiturates 200 ng/mL Benzodiazepines 200 ng/mL Cocaine 300 ng/mL Fentanyl 1 ng/mL Opiates 300 ng/mL Oxycodone 100 ng/mL THC 50 ng/mL Semi-quantitative assay for screening purposes only. Unconfirmed screening result should not be used for non-medical purposes. *ALTERNATE METHOD CONFIRMATION DONE UPON REQUEST ONLY* Andi LINDO LAB URINE ORDERABLES Final Resul t [facility] [address] [place] [address], * (ABNORMAL) Respiratory virus panel molecular study (01/04/2025 7:29 PM EDT) Pathologist [facility] Adenovirus Detection by PCR Not Detected Not Detected LAB MICROBIOLOGY METHOD 01/04/2025 9:06 PM EDT [facility] Influenza A PCR Not Detected Not Detected LAB MICROBIOLOGY METHOD 01/04/2025 9:06 PM EDT [facility] Influenza B PCR Not Detected Not Detected LAB MICROBIOLOGY METHOD 01/04/2025 9:06 PM EDT [facility] Coronavirus 229E Not Detected Not Detected LAB MICROBIOLOGY METHOD 01/04/2025 9:06 PM EDT [facility] Coronavirus HKU1 Not Detected Not Detected LAB MICROBIOLOGY METHOD 01/04/2025 9:06 PM EDT [facility] Coronavirus OC43 Not Detected Not Detected LAB MICROBIOLOGY METHOD 01/04/2025 9:06 PM EDT [facility] Coronavirus NL63 Not Detected Not Detected LAB MICROBIOLOGY METHOD 01/04/2025 9:06 PM EDT [facility] Parainfluenza Virus 1 Not Detected Not Detected LAB MICROBIOLOGY METHOD 01/04/2025 9:06 PM EDT [facility] Parainfluenza Virus 2 Not Detected Not Detected LAB MICROBIOLOGY METHOD 01/04/2025 9:06 PM EDT [facility] Parainfluenza Virus 3 Not Detected Not Detected LAB MICROBIOLOGY METHOD 01/04/2025 9:06 PM EDT [facility] Parainfluenza Virus 4 Not Detected Not Detected LAB MICROBIOLOGY METHOD 01/04/2025 9:06 PM EDT [facility] RSV PCR Not Detected Not Detected LAB MICROBIOLOGY METHOD 01/04/2025 9:06 PM EDT [facility] Human Metapneumovirus A and B Not Detected Not Detected LAB MICROBIOLOGY METHOD 01/04/2025 9:06 PM EDT [facility] Rhinovirus/Entero virus Not Detected Not Detected LAB MICROBIOLOGY METHOD 01/04/2025 9:06 PM EDT [facility] Bordetella pertussis Not Detected Not Detected LAB MICROBIOLOGY METHOD 01/04/2025 9:06 PM EDT [facility] Bordetella parapertussis Not Detected Not Detected LAB MICROBIOLOGY METHOD 01/04/2025 9:06 PM EDT [facility] Mycoplasma pneumo by PCR Not Detected Not Detected LAB MICROBIOLOGY METHOD 01/04/2025 9:06 PM EDT [facility] Chlamydia pneumoniae Not Detected Not Detected LAB MICROBIOLOGY METHOD 01/04/2025 9:06 PM EDT [facility] SARS COV-2 Detected(A ) Not Detected LAB MICROBIOLOGY METHOD 01/04/2025 9:06 PM EDT [facility] Swab Both anterior nares / Unknown Non-blood Collection / Unknown 01/04/2025 7:29 PM EDT 01/04/2025 7:52 PM EDT Narrative [facility] - 01/04/2025 9:06 PM EDT Testing was performed using the [employer] Respiratory Pathogen PCR Assay. All results must [...] that are below the limit of detection. us Andi LINDO LAB MICROBIOLOGY - GENERAL ORDER WAI Final Result Performing Organization Address [facility]/ZIP Co de Phone Number [facility] [address] [place] [address], * Thyroid Stimulating Hormone (TSH) (01/04/2025 6:38 PM EDT) TSH 3.74 0.40 - 4.00 mcIU/mL LAB CHEMISTRY METHOD 01/05/2025 12:28 PM EDT [facility] Blood Venous blood specimen / Unknown Venipuncture / Unknown 01/04/2025 6:38 PM EDT 01/04/2025 7:01 PM EDT us Andi LINDO LAB BLOOD ORDERABLES Final Resul t Performing Organization Address [facility]/ZIP Co de Phone Number [facility] [address] [place] [address], * Magnesium (01/04/2025 6:38 PM EDT) Only the most recent of2 resultswithin the time period is included. Magnesium 2.4 1.9 - 2.6 mg/dL LAB CHEMISTRY METHOD 01/04/2025 8:02 PM EDT [facility] Blood Venous blood specimen / Unknown Venipuncture / Unknown 01/04/2025 6:38 PM EDT 01/04/2025 7:01 PM EDT us Andi LINDO LAB BLOOD ORDERABLES Final Resul t Performing Organization Address [facility]/ZIP Co de Phone Number [facility] [address] [place] [address], [place] [phone] * Ethanol (01/04/2025 6:38 PM EDT) Ethanol Level <3 0 - 10 mg/dL LAB CHEMISTRY METHOD 01/04/2025 8:17 PM EDT [facility] Blood Venous blood specimen / Unknown Venipuncture / Unknown 01/04/2025 6:38 PM EDT 01/04/2025 7:01 PM EDT us Andi LINDO LAB BLOOD ORDERABLES Final Resul t Performing Organization Address [facility]/ZIP Co de Phone Number [facility] [address] [place] [address], [place] [phone] * (ABNORMAL) Comprehensive metabolic panel (01/04/2025 6:38 PM EDT) Sodium 135 133 - 145 mmol/L LAB CHEMISTRY METHOD 01/04/2025 7:41 PM EDT [facility] Potassium 3.4(L) 3.5 - 5.5 mmol/L LAB CHEMISTRY METHOD 01/04/2025 7:41 PM EDT [facility] Chloride 103 96 - 110 mmol/L LAB CHEMISTRY METHOD 01/04/2025 7:41 PM [facility] CO2 20(L) 21 - 32 mmol/L LAB CHEMISTRY METHOD 01/04/2025 7:41 PM [facility] Anion Gap 12(H) 3 - 11 LAB CHEMISTRY METHOD 01/04/2025 7:41 PM [facility] Glucose 81 70 - 100 mg/dL LAB CHEMISTRY METHOD 01/04/2025 7:41 PM [facility] BUN 35(H) 5 - 25 mg/dL LAB CHEMISTRY METHOD 01/04/2025 7:41 PM [facility] Creatinine 0.96 0.70 - 1.30 mg/dL LAB CHEMISTRY METHOD 01/04/2025 7:41 PM [facility] eGFR 77 >=60 mL/min/1. 73m2 LAB CHEMISTRY METHOD 01/04/2025 7:41 PM [facility] Comment:Calculation based on the Chronic Kidney Disease Epidemiology Collaboration (CKD-EPI) equation refit without adjustment for race. BUN/Creatinine Ratio 36.5 LAB CHEMISTRY METHOD 01/04/2025 7:41 PM [facility] Calcium 9.1 8.5 - 10.5 mg/dL LAB CHEMISTRY METHOD 01/04/2025 7:41 PM [facility] AST (SGOT) 33 10 - 42 unit/L LAB CHEMISTRY METHOD 01/04/2025 7:41 PM [facility] ALT (SGPT) 26 10 - 60 unit/L LAB CHEMISTRY METHOD 01/04/2025 7:41 PM [facility] Alkaline Phosphatase 78 42 - 121 unit/L LAB CHEMISTRY METHOD 01/04/2025 7:41 PM [facility] Total Protein 7.0 6.0 - 8.0 g/dL LAB CHEMISTRY METHOD 01/04/2025 7:41 PM [facility] Albumin 3.9 3.2 - 5.0 g/dL LAB CHEMISTRY METHOD 01/04/2025 7:41 PM EDT [facility] Total Bilirubin 1.0 0.0 - 1.4 mg/dL LAB CHEMISTRY METHOD 01/04/2025 7:41 PM EDT [facility] Blood Venous blood specimen / Unknown Venipuncture / Unknown 01/04/2025 6:38 PM EDT 01/04/2025 7:01 PM EDT Luis Diego MD LAB BLOOD ORDERABLES Final Result [facility] [address] [place] [address], * ECG-Annotated (01/03/2025) us Provider Onbase ECG ORDERABLES Final Result * CT Head [...] by: Og Horvath MD on 01/01/2025 02:04:[address] PROCEDURES Final R esult * XR Chest 2 Views (01/01/2025 12:39 AM EDT) Anatomical Region Laterality Modality Body Radiographic Maia ging 01/01/2025 9:15 AM EDT Impressions 01/01/2025 9:16 AM EDT No acute findings. -------- FINAL REPORT -------- Dictated By: Og Cruz Dictated Date: 01/01/2025 09:15 ET Assigned Physician: Og Cruz Reviewed and Electronically Signed By: Og Cruz Signed Date: 01/01/2025 09:16 ET Workstation ID: [id number] Transcribed By: Self Edit Transcribed Date: 01/01/2025 09:15 ET Narrative 01/01/2025 9:16 AM EDT PROCEDURE: PA and lateral radiographs of the chest. HISTORY: general weakness. COMPARISON: 10/23/2024. FINDINGS: Lungs, pleural spaces, pulmonary vasculature, and cardiomediastinal contours are normal. Mild degenerative changes of the spine. Stable mild anterior wedging of several of the [...] Signed Date: 01/01/2025 09:16 ET Workstation ID: [id number] Transcribed By: Self Edit Transcribed Date: 01/01/2025 09:15 ET Luis LINDO IMG XR PROCEDURES Final R esult * Troponin I high sensitivity (01/01/2025 12:03 AM EDT) Only the most recent of2 resultswithin the time period is included. [facility] High Sensitivity Troponin I 6 <=79 ng/L LAB CHEMISTRY METHOD 01/01/2025 12:47 AM EDT [facility] Blood Venous blood specimen / Unknown Venipuncture / Unknown 01/01/2025 12:03 AM EDT 01/01/2025 12:07 AM EDT Narrative [facility] - 01/01/2025 12:47 AM EDT High levels of biotin in samples may falsely decrease hsTroponin values. Use caution when interpreting hsTroponin results in patients taking biotin who exhibit renal impairment (eGFR <60) or in patients taking more than 20 mg/day of biotin. Jose Yip MD LAB BLOOD ORDERABLES Final Resu lt [facility] [address] [place] [address], * Hepatic function panel (12/31/2024 10:23 PM EDT) [facility] Total Protein 6.7 6.0 - 8.0 g/dL LAB CHEMISTRY METHOD 01/01/2025 12:48 AM EDT [facility] Albumin 4.0 3.2 - 5.0 g/dL LAB CHEMISTRY METHOD 01/01/2025 12:48 AM EDT [facility] Total Bilirubin 0.5 0.0 - 1.4 mg/dL LAB CHEMISTRY METHOD 01/01/2025 12:48 AM EDT [facility] Bilirubin, Direct 0.2 0.0 - 0.3 mg/dL LAB CHEMISTRY METHOD 01/01/2025 12:48 AM EDT [facility] Bilirubin, Indirect 0.3 0.0 - 1.1 mg/dL LAB CHEMISTRY METHOD 01/01/2025 12:48 AM EDT [facility] ALT (SGPT) 22 10 - 60 unit/L LAB CHEMISTRY METHOD 01/01/2025 12:48 AM EDT [facility] AST (SGOT) 24 10 - 42 unit/L LAB CHEMISTRY METHOD 01/01/2025 12:48 AM EDT [facility] Alkaline Phosphatase 98 42 - 121 unit/L LAB CHEMISTRY METHOD 01/01/2025 12:48 AM EDT [facility] Blood Venous blood specimen / Unknown Venipuncture / Unknown 12/31/2024 10:23 PM EDT 12/31/2024 10:33 PM EDT Luis LINDO LAB BLOOD ORDERABLES Nancy l Result [facility] [address] [place] [address], * ECG 12 lead (12/31/2024 10:14 PM EDT) Ventricular Rate ECG 65 BPM GEMUSE Atrial Rate 65 BPM GEMUSE P-R Interval 132 ms GEMUSE QRS Duration 84 ms GEMUSE Q-T Interval 412 ms GEMUSE QTc 428 ms GEMUSE P Wave [place] 41 degrees GEMUSE R [place] -33 degrees GEMUSE T [place] 24 degrees GEMUSE ECG Interpretation Normal sinus rhythm Left axis deviation Minimal voltage criteria for LVH, may be normal variant ( R in aVL ) Nonspecific ST abnormality Abnormal ECG When compared with ECG of 23-OCT-2024 01:18, No significant change was found Confirmed by ARACELI LEONARD ([id number]) on 01/01/2025 3:37:46 PM GEMUSE 12/31/2024 10:1 4 PM EDT 01/01/2025 3:37 PM EDT Jose B Phi ALBA ECG ORDERABLES Final Result GEM[facility] from Last 3 Months Insurance MEDICARE [place] Advance Directives Documents on File Type Date Recorded Patient Log Deckman Expl anation Health Care Decision (hx) 08/07/2023 AD DEMPSEY DIRECTIVE Health Care Decision (hx) 08/07/2023 AD DEMPSEY DIRECTIVE Health Care Decision (hx) 08/07/2023 AD DEMPSEY DIRECTIVE Health Care Decision (hx) 08/07/2023 AD DEMPSEY DIRECTIVE Health Care Decision (hx) 08/07/2023 AD DEMPESY DIRECTIVE Health Care Decision (hx) 08/07/2023 AD [...] currently active code status orders. Care Teams Freelance Recruiter Relationship Specialty Start Date End Date Flavio Cortes PA PCP - General 09/29/23
== END 2025-03-21 15:08 | disposition home or self-care (01) ==
LOC: HO.HSMS 14:23
PROVIDERS: PCP Physician Assistant; Visit Provider Psychiatry & Neurology Neurology
DX: G31.84 Mild cognitive impairment of uncertain or unknown etiology (principal)
CPT/HCPCS: 99204; G2211

== ENCOUNTER 2025-03-21 14:22 | Outpatient (REF) | payer OTHER, SELFPAY ==
[2025-03-21 18:04] LABS: Basophils Percent Auto 0.5 % (0-2); Eosinophils Absolute Auto 0.1 X10*3/uL (0.0-0.4); Hematocrit 36.7 % (42.0-52.0); Hemoglobin 12.2 g/dl (14.0-18.0); Imm Gran Abs Auto 0.01 X10*3/uL (0.00-0.03); Imm Gran Pct Auto 0.2 % (0.0-0.4); Lymphocytes Absolute Auto 1.6 X10*3/uL (1.2-4.9); Lymphocytes Percent Auto 35.6 % (20-40); MANUAL DIFF FLAG SCAN; Mean Corpuscular HGB Conc 33.2 g/dl (31.0-36.0); Mean Corpuscular Hemoglobin 33.3 pg (27.0-33.0); Mean Corpuscular Volume 100.3 fL (80.0-98.0); Monocytes Absolute Auto 0.3 X10*3/uL (0.1-1.2); Neutrophils Absolute Auto 2.4 x10*3/uL (2.0-8.3); Neutrophils Percent Auto 54.7 % (45-73); PLT CLUMP 1; Red Blood Count 3.66 X10*6/uL (4.60-5.80); Red Cell Distribution Width 14.7 % (11.0-16.0); SCAN SMEAR FLAG 1
[2025-03-21 18:06] LABS: White Blood Count 4.4 X10*3/uL (4.8-10.8)
[2025-03-21 18:24] LABS: SLIDE REVIEW VERIFIED
[2025-03-21 18:33] LABS: Prostate Specific Antigen Scr < 0.10 ng/mL (<0.05-4.0)
[2025-03-21 18:39] LABS: Erythrocyte Sedimentation Rate 18 MM/HR (0-15)
[2025-03-21 18:41] LABS: Alanine Aminotransferase 12 U/L (0-40); Albumin Level 4.4 g/dL (3.5-5.0); Alkaline Phosphatase 65 U/L (39-117); Anion Gap 15 (12-20); Aspartate Amino Transferase 43 U/L (5-37); Bilirubin Total 0.8 mg/dL (0.0-1.0); Blood Urea Nitrogen 17 mg/dL (9-16); Calcium 9.6 mg/dL (8.4-10.2); Carbon Dioxide 24 mmol/L (22-29); Chloride 108 mmol/L (96-108); Estimated Glomerular Filt Rate > 60; Glucose Fasting 92 mg/dL (60-99); Glucose Random 91 mg/dL (60-115); Potassium 4.9 mmol/L (3.3-5.1); Sodium 142 mmol/L (135-145); Total Protein 7.4 g/dL (6.5-8.0)
[2025-03-21 18:45] LABS: Vitamin B12 281 pg/mL (200-900)
== END 2025-03-21 14:23 | disposition home or self-care (01) ==
LOC: HO.HKASLDS 14:22
PROVIDERS: PCP Physician Assistant; Visit Provider Psychiatry & Neurology Neurology
DX: G31.84 Mild cognitive impairment of uncertain or unknown etiology (principal); Z13.1 Encounter for screening for diabetes mellitus; Z12.5 Encounter for screening for malignant neoplasm of prostate; C61 Malignant neoplasm of prostate
CPT/HCPCS: 36415; 80053; 82607; 82746; 84153; 85025; 85652; 99202